=== PATIENT | female | born 1950 | race Caucasian/White ===

== ENCOUNTER → 2016-03-12 | Outpatient (CLI) | payer MEDICAID, MEDICARE | LOC: RAD 14:36 | PROVIDERS: ATTEND Internal Medicine Critical Care Medicine | DX: R07.9 Chest pain, unspecified (principal); R05 Cough; J15.9 Unspecified bacterial pneumonia; J45.909 Unspecified asthma, uncomplicated; R93.8 Abnormal findings on diagnostic imaging of other specified body structures; R91.8 Other nonspecific abnormal finding of lung field; R06.09 Other forms of dyspnea; M54.6 Pain in thoracic spine; G47.33 Obstructive sleep apnea (adult) (pediatric); K21.9 Gastro-esophageal reflux disease without esophagitis; Z80.9 Family history of malignant neoplasm, unspecified; Z87.898 Personal history of other specified conditions | CPT/HCPCS: 71250 ==

== ENCOUNTER → 2016-03-12 | Outpatient (CLI) | payer MEDICARE ==
[2016-03-12 17:23] LABS: HEMATOCRIT 37.3 % (36.0-47.0); HEMOGLOBIN 12.6 g/dL (12.0-15.5); HGB HCT DIFFERENCE 0.5; MEAN CORPUSCULAR HEMOGLOBIN 29.8 pg (27.0-33.4); MEAN CORPUSCULAR HGB CONC 33.9 g/dL (32.0-36.0); MEAN CORPUSCULAR VOLUME 88 fl (80-97); RED BLOOD COUNT 4.24 10^6/uL (3.72-5.28); WHITE BLOOD COUNT 8.8 10^3/uL (4.0-10.5)
[2016-03-12 17:31] LABS: APPEARANCE,URINE CLEAR; BILIRUBIN,URINE NEGATIVE (NEGATIVE); GLUCOSE, URINE NEGATIVE (NEGATIVE); KETONES,URINE NEGATIVE (NEGATIVE); LEUKOCYTE ESTERASE,URINE NEGATIVE (NEGATIVE); NITRITE,URINE NEGATIVE (NEGATIVE); PROTEIN,URINE NEGATIVE (NEGATIVE); URINE SPECIFIC GRAVITY 1.017; UROBILINOGEN,URINE NEGATIVE mg/dL (<2.0)
[2016-03-12 17:38] LABS: ALANINE AMINOTRANSFERASE 52 U/L (9-52); ALKALINE PHOSPHATASE 94 U/L (38-126); AMYLASE 245 U/L (30-110); ANION GAP 16 (5-19); ASPARTATE AMINO TRANSFERASE 82 U/L (14-36); BILIRUBIN,TOTAL 0.3 mg/dL (0.2-1.3); BLOOD UREA NITROGEN 14 mg/dL (7-20); CALCIUM 8.9 mg/dL (8.4-10.2); CARBON DIOXIDE 28 mmol/L (22-30); CHLORIDE 99 mmol/L (98-107); CREATININE RESULT 0.51 mg/dL (0.52-1.25); GLUCOSE 157 mg/dL (75-110); LIPASE 196.8 U/L (23-300); POTASSIUM 3.6 mmol/L (3.6-5.0); SODIUM 143.2 mmol/L (137-145); TOTAL PROTEIN 7.1 g/dL (6.3-8.2)
== END ==
LOC: OD 16:02
PROVIDERS: ATTEND Internal Medicine Critical Care Medicine
DX: J15.9 Unspecified bacterial pneumonia (principal); R10.12 Left upper quadrant pain; M54.6 Pain in thoracic spine
CPT/HCPCS: 36415; 80053; 81001; 82150; 83690; 85027

== ENCOUNTER → 2016-04-20 | Outpatient (CLI) | payer MEDICAID, MEDICARE | LOC: RAD 14:34 | PROVIDERS: ATTEND Physician Assistant | DX: R10.9 Unspecified abdominal pain (principal) | CPT/HCPCS: 76380 ==

== ENCOUNTER 2016-11-27 14:20 | Emergency (ER) | payer MEDICARE, MEDICAID ==
--- NOTE | 2016-11-27 16:00 | ER Document Report ---
ED GI/ - General Mode of Arrival: Wheelchair Information source: Patient TRAVEL OUTSIDE OF THE [place] IN LAST 30 DAYS: No <ENRICO PALENCIA - Last Filed: 11/27/16 19:05> <JOSE F JUAREZ - Last Filed: 11/27/16 20:52> - General Chief Complaint: Urinary Problem Stated Complaint: URINARY PROBLEMS Time Seen by Provider: 11/27/16 15:38 Notes: Patient is a 66-year-old female presented to the emergency department for hematuria, abdominal pain and back pain. Patient says that she is experiencing these symptoms periodically over the past several months. Patient states that her symptoms have been intermittent over the last day or so and then go away before returning again several days later. Patient states that yesterday her symptoms started again and she had hematuria that was very dark in color. Patient states that she urinated in a Styrofoam cup to better examine the appearance of her urine. Patient denies any fever, nausea or vomiting. Patient denies any history of Gout. Patient does have a history of diabetes and diverticulitis but states that she gets very nauseous and her pain is more intense when she has this. Patient had a limited renal/pelvis CT in April that showed a stone in her left kidney. PCP is Dr. Burnett. (ENRICO PALENCIA) - Related Data Allergies/Adverse Reactions: codeine [Codeine] Allergy (Severe, Verified 11/27/16 14:32) stopped breathing acetaminophen [From Darvocet-N 100] Allergy (Intermediate, Verified 11/27/16 14: 32) Hallucinations latex [Latex] Allergy (Intermediate, Verified 11/27/16 14:32) Hives propoxyphene HCl [From Darvon] Allergy (Intermediate, Verified 11/27/16 14:32) Hallucinations aspirin [Aspirin] Adverse Reaction (Mild, Verified 11/27/16 14:32) n/v Past Medical History - General Information source: Patient - Social History Smoking Status: Never Smoker Cigarette use (# per day): No Chew tobacco use (# tins/day): No Smoking Education Provided: No Frequency of alcohol use: None Drug Abuse: None Family History: None, Other - Mother at age 50 due to [place]. Brother with multiple CABG. Patient has suicidal ideation: No Patient has homicidal ideation: No - Past Medical History Cardiac Medical History: Reports: Hx Coronary Artery Disease, Hx Hypercholesterolemia, Hx Hypertension Pulmonary Medical History: Reports: Hx Asthma, Hx Bronchitis, Hx Pneumonia - ABOUT A YEAR AGO, Hx Sleep Apnea Endocrine Medical History: Reports: Hx Diabetes Mellitus Type 2 GI Medical History: Reports: Hx Diverticulitis, Hx Gastroesophageal Reflux Disease Musculoskeltal Medical History: Reports Hx Arthritis - LEFT KNEE Psychiatric Medical History: Reports: Hx Depression, Hx Post Traumatic Stress Disorder Past Surgical History: Reports: Hx Abdominal Surgery - resection, Hx Cardiac Catheterization, Hx Hysterectomy, Hx Orthopedic Surgery - rt knee 05/2012, Hx Tonsillectomy, Hx Tubal Ligation - Immunizations Immunizations up to date: Yes Hx Diphtheria, Pertussis, Tetanus Vaccination: Yes Hx Pneumococcal Vaccination: 07/31/11 <ENRICO PALENCIA - Last Filed: 11/27/16 19:05> Review of Systems - Review of Systems Constitutional: No symptoms reported. denies: Fever EENT: No symptoms reported Cardiovascular: No symptoms reported Respiratory: No symptoms reported Gastrointestinal: See HPI, Abdominal pain. denies: Nausea, Vomiting Genitourinary: See HPI, Flank pain, Hematuria Female Genitourinary: No symptoms reported Musculoskeletal: See HPI, Back pain Skin: No symptoms reported Hematologic/Lymphatic: No symptoms reported Neurological/Psychological: No symptoms reported -: Yes All other systems reviewed and negative <ENRICO PALENCIA - Last Filed: 11/27/16 19:05> Physical Exam - Vital signs Interpretation: Hypertensive <ENRICO PALENCIA - Last Filed: 11/27/16 19:05> <JOSE F JUAREZ - Last Filed: 11/27/16 20:52> - Vital signs Vitals: Temp Pulse Resp BP Pulse Ox 97.5 F 100 18 210/118 H 94 11/27/16 14:24 11/27/16 14:24 11/27/16 14:24 11/27/16 14:24 11/27/16 14:24 - Notes Notes: GENERAL: Alert, interacts well. Mild distress. HEAD: Normocephalic, atraumatic. EYES: Appear normal. Pupils equal, round, and reactive to light. ENT: Moist mucus membranes, tongue midline. NECK: Full range of motion. Supple. Trachea midline. LUNGS: Clear to auscultation bilaterally, no wheezes, rales, or rhonchi. No respiratory distress. Left lateral chest wall tenderness with palpation along the inferior ribs both posteriorly and laterally in the musculature. HEART: Regular rate and rhythm. No murmurs, gallops, or rubs. ABDOMEN: Soft, non-tender. Non-distended. Normal bowel sounds. BACK: Left inferior posterior ribs are tender with palpation. EXTREMITIES: Moves all 4 extremities spontaneously. Normal strength. No edema. NEUROLOGICAL: Alert and oriented x3. Normal speech. No focal neurological deficits. GCS 15. PSYCH: Normal affect, normal mood. SKIN: Warm, dry, normal turgor. No rashes or lesions noted. (ENRICO PALENCIA) Course - Laboratory Result Diagrams: 11/27/16 16:22 11/27/16 16:22 <ENRICO PALENCIA - Last Filed: 11/27/16 19:05> - Laboratory Result Diagrams: 11/27/16 16:22 11/27/16 16:22 - Diagnostic Test Radiology reviewed: Image reviewed, Reports reviewed - CT scan shows a 12 mm stone in the left renal pelvis causing minimal obstruction <JOSE F JUAREZ - Last Filed: 11/27/16 20:52> - Vital Signs Vital signs: Temp Pulse Resp BP Pulse Ox 97.5 F 100 18 210/118 H 94 11/27/16 14:24 11/27/16 14:24 11/27/16 14:24 11/27/16 14:24 11/27/16 14:24 - Laboratory Laboratory results interpreted by me: 11/27/16 11/27/16 11/27/16 16:22 16:22 16:22 Hgb 11.9 L Hct 35.5 L RDW 14.7 H Glucose 187 H AST 65 H Urine Protein 30 H Urine Ketones TRACE H Urine Blood LARGE H Discharge <ENRICO PALENCIA - Last Filed: 11/27/16 19:05> <JOSE F JUAREZ - Last Filed: 11/27/16 20:52> - Discharge Clinical Impression: Kidney stone on left side High blood pressure Qualifiers: Hypertension type: essential hypertension Qualified Code(s): I10 - Essential ( primary) hypertension Condition: Stable Disposition: HOME, SELF-CARE Additional Instructions: Kidney Stone You have a kidney stone. These stones are usually due to increased calcium or uric acid concentrations in your urine. Stones within the kidney itself are not painful. The pain occurs as the stone leaves the kidney to pass down the long tube, called the ureter, leading to the bladder. If the stone is small, it will usually pass by itself. Most patients can pass the stone at home. You will usually receive medications for pain, nausea or vomiting, and sometimes a medication to assist in passing the kidney stone. However, if the pain is very severe or if vomiting prevents you from taking oral pain medications, you may need to return for further treatment. Drink three or four quarts of fluids per day. You will be given pain medication (if needed) and urine strainers. Strain all your urine to see if the stone passes. If your doctor has asked you to bring the stone in for analysis, return with the stone once it has passed. Return if pain or vomiting become severe, if you develop a high fever, if you are unable to pass your urine, or if other unusual symptoms occur. //////////////////////////////////////////////////////////////////////////////// //////////////////////////////////////////////////////////////////////////////// //////////////// Your kidney stone is located in the left renal pelvis. The stone is 12 mm, it most likely will not pass on its own. You should take the pain medication as needed. Drink plenty of fluids. Your blood pressure was quite elevated tonight. Be sure you are not taking your blood pressure medications every day, and monitoring your blood pressure. Call [facility] [place] office on Wednesday morning to make an appointment for this week. RETURN TO THE EMERGENCY ROOM IF ANY NEW OR WORSENING SYMPTOMS. Prescriptions: Oxycodone HCl/Acetaminophen [Percocet 5-325 mg Tablet] 1 - 2 tab PO ASDIR PRN # 20 tablet PRN Reason: Referrals: [facility] [Provider Group] - 11/30/16 (CALL WEDNESDAY FOER AN APPOINTMENT THIS WEEK.) Scribe Attestation: 11/27/16 20:49 I personally performed the services described in the documentation, reviewed and edited the documentation which was dictated to the scribe in my presence, and it accurately records my words and actions. (JOSE F JUAREZ) Scribe Documentation - Scribe Written by Scribe:: Lazara Gerber, 11/27/2016 17:51 acting as scribe for :: Pb <ENRICO PALENCIA - Last Filed: 11/27/16 19:05>
[2016-11-27 16:46] LABS: ABSOLUTE BASOPHILS # (AUTO) 0.1 10^3/uL (0.0-0.2); ABSOLUTE EOSINOPHILS # (AUTO) 0.2 10^3/uL (0.0-0.6); ABSOLUTE LYMPHOCYTES (AUTO) 2.4 10^3/uL (0.5-4.7); ABSOLUTE MONOCYTES (AUTO) 0.5 10^3/uL (0.1-1.4); ABSOLUTE NEUT (AUTO) 5.2 10^3/uL (1.7-8.2); EOSINOPHILS % (AUTO) 2.6 % (0-6); HEMATOCRIT 35.5 % (36.0-47.0); HEMOGLOBIN 11.9 g/dL (12.0-15.5); HGB HCT DIFFERENCE 0.2; LYMPHOCYTES % (AUTO) 28.8 % (13-45); MEAN CORPUSCULAR HGB CONC 33.7 g/dL (32.0-36.0); MEAN CORPUSCULAR VOLUME 89 fl (80-97); RED BLOOD COUNT 3.98 10^6/uL (3.72-5.28); RED CELL DISTRIBUTION WIDTH 14.7 % (11.5-14.0); SEGMENTED NEUTROPHILS % (AUTO) 61.6 % (42-78); WHITE BLOOD COUNT 8.4 10^3/uL (4.0-10.5)
[2016-11-27 16:54] LABS: ALANINE AMINOTRANSFERASE 50 U/L (9-52); ALBUMIN 4.2 g/dL (3.5-5.0); ALKALINE PHOSPHATASE 79 U/L (38-126); ANION GAP 13 (5-19); ASPARTATE AMINO TRANSFERASE 65 U/L (14-36); BILIRUBIN,DIRECT 0.4 mg/dL (0.0-0.4); BILIRUBIN,TOTAL 0.4 mg/dL (0.2-1.3); BLOOD UREA NITROGEN 16 mg/dL (7-20); CALCIUM 9.8 mg/dL (8.4-10.2); CARBON DIOXIDE 25 mmol/L (22-30); CHLORIDE 103 mmol/L (98-107); CREATINE KINASE 103 U/L (30-135); CREATININE RESULT 0.54 mg/dL (0.52-1.25); GLUCOSE 187 mg/dL (75-110); POTASSIUM 3.9 mmol/L (3.6-5.0); SODIUM 141.2 mmol/L (137-145); TOTAL PROTEIN 6.9 g/dL (6.3-8.2); URIC ACID 6.7 mg/dL (2.5-7.5)
[2016-11-27 17:01] LABS: APPEARANCE,URINE SLIGHTLY-CLOUDY; BILIRUBIN,URINE NEGATIVE (NEGATIVE); GLUCOSE, URINE NEGATIVE (NEGATIVE); KETONES,URINE TRACE mg/dL (NEGATIVE); LEUKOCYTE ESTERASE,URINE NEGATIVE (NEGATIVE); NITRITE,URINE NEGATIVE (NEGATIVE); PROTEIN,URINE 30 mg/dL (NEGATIVE); URINE SPECIFIC GRAVITY 1.024; UROBILINOGEN,URINE NEGATIVE mg/dL (<2.0)
--- NOTE | 2016-11-27 20:11 | RADIOLOGY REPORT (SQ) ---
EXAM DESCRIPTION: CT LTD RENAL STONE PROTOCOL ON COMPLETED DATE/TIME: 11/27/2016 8:03 pm REASON FOR STUDY: hematuria, L abd pain COMPARISON: None. TECHNIQUE: CT scan of the abdomen and pelvis performed without intravenous or oral contrast. Images reviewed with lung, soft tissue, and bone windows. Reconstructed coronal and sagittal MPR images revi ewed. All images stored on PACS. All CT scanners at this facility use dose modulation, iterative reconstruction, and/or weight based d osing when appropriate to reduce radiation dose to as low as reasonably achievable (ALARA). [facility]: Dose Right [facility]: CareDose [facility]: Dose Right [facility]: Teradose 4D [facility]: Smart [employer] RADIATION DOSE: Up-to-date CT equipment and radiation dose reduction techniques were employed. CTDIv ol: 19.1 mGy. DLP: 1032 mGy-cm.mGy. LIMITATIONS: None. FINDINGS: LOWER CHEST: No significant findings. No nodules or infiltrates. NON-CONTRASTED LIVER, SPLEEN, ADRENALS: Evaluation limited by lack of IV contrast. No identified sign ificant masses. PANCREAS: No masses. No peripancreatic inflammatory changes. GALLBLADDER: No identified stones by CT criteria. No inflammatory changes to suggest cholecystitis. RIGHT KIDNEY AND URETER: No suspicious masses. Assessment limited by lack of IV contrast. No signif icant calcifications. No hydronephrosis or hydroureter. LEFT KIDNEY AND URETER: No suspicious masses. Assessment limited by lack of IV contrast. The left r enal pelvis is mildly dilated and contains a 12 x 8 mm calculus. No lower urinary tract stones or s ignificant hydronephrosis. AORTA AND RETROPERITONEUM: Scattered atherosclerotic calcifications. No aneurysm. No retroperitoneal masses or adenopathy. BOWEL AND PERITONEAL CAVITY: Postsurgical change sigmoid colon. Scattered colonic diverticula withou t acute inflammation. No obvious masses or inflammatory changes. No free fluid. APPENDIX: Normal. PELVIS, BLADDER, AND ABDOMINAL WALL:Tiny fat containing periumbilical hernia. No abnormal masses. No free fluid. Bladder normal. BONES: Degenerative change without fracture or suspicious osseous lesion. OTHER: No other significant finding. IMPRESSION: MILD PROMINENCE LEFT RENAL PELVIS WHICH CONTAINS A 12 MM CALCULUS. NO LOWER URINARY TRA CT STONES. ADDITIONAL CHRONIC CHANGES ABOVE. COMMENT: Quality ID # [id number]: Final reports with documentation of one or more dose reduction techniques (e.g., Automated exposure control, adjustment of the mA and/or kV according to patient size, use of iterative reconstruction technique) TECHNICAL DOCUMENTATION: JOB ID: [id number] [employer]- All Rights Reserved
[2016-11-27] MEDS ORDERED: HYDROCODONE/ACETAMINOPHEN 5-325 MG 6 TAB/DSPK PO PRN (20:52)
[2016-11-27 21:26] VITALS: BP 180/77
== END 2016-11-27 21:23 | disposition home or self-care (01) ==
LOC: ER 14:20
DX: N20.0 Calculus of kidney (principal); M54.9 Dorsalgia, unspecified; R10.9 Unspecified abdominal pain; E11.9 Type 2 diabetes mellitus without complications; I25.10 Atherosclerotic heart disease of native coronary artery without angina pectoris; I10 Essential (primary) hypertension; J45.909 Unspecified asthma, uncomplicated; Z87.19 Personal history of other diseases of the digestive system; Z88.5 Allergy status to narcotic agent; Z91.040 Latex allergy status
CPT/HCPCS: 99284; 36415; 82550; 84550; 85025; 80053; 81001; 76380; A9270

== ENCOUNTER → 2017-01-27 | Outpatient (CLI) | payer MEDICARE, MEDICAID ==
--- NOTE | 2017-01-27 10:55 | RADIOLOGY REPORT (SQ) ---
EXAM DESCRIPTION: U/S RETROPERITON (RENAL/AORTA) COMPLETED DATE/TIME: 01/27/2017 9:08 am REASON FOR STUDY: CALCULUS OF URETER N20.1 CALCULUS OF URETER COMPARISON: CT 11/27/2016 TECHNIQUE: Dynamic and static grayscale images acquired of the kidneys and bladder and recorded on P ACS. Additional selected color Doppler and spectral images recorded. LIMITATIONS: None. FINDINGS: RIGHT KIDNEY: Normal size, 10.7 cm. Normal echogenicity. No solid or suspicious masses. No hydronephrosis. No calcifications. LEFT KIDNEY: Normal size, 11.2 cm. Normal echogenicity. No solid or suspicious masses. No hydronephr osis. No calcifications. BLADDER: Incompletely filled but morphologically normal. Ureteral jets were not seen. OTHER FINDINGS: No other significant finding. IMPRESSION: NORMAL RENAL AND BLADDER ULTRASOUND. TECHNICAL DOCUMENTATION: JOB ID: [id number] [employer]- All Rights Reserved
== END ==
LOC: RAD 07:58
PROVIDERS: ATTEND Urology
DX: N20.1 Calculus of ureter (principal)
CPT/HCPCS: 76770

== ENCOUNTER 2017-04-17 11:48 | Inpatient (IN) | payer MEDICARE, MEDICAID ==
[2017-04-17] MEDS ORDERED: IPRATROPIUM/ALBUTEROL 0.5-2.5 MG/3 ML AMPUL NEB ONE ×2 (14:30→20:02)
--- NOTE | 2017-04-17 14:32 | ER Document Report ---
ED Medical Screen (RME) - General Chief Complaint: Breathing Difficulty Stated Complaint: DIFFICULTY BREATHING Time Seen by Provider: 04/17/17 14:28 TRAVEL OUTSIDE OF THE [place] IN LAST 30 DAYS: No - HPI Notes: 04/17/17 14:43 67-year-old female with a history of type 2 diabetes, hypertension, hyperlipidemia presents today with shortness of breath has been occurring for the last 2 days. Reports shortness of breath has become progressive. Denies chest pain, reports some nausea, denies vomiting. Patient has been worked up for CHF but has never been given a conclusive answer per patient. Denies any rashes. Denies any fevers or chills. Eating and drinking without issues. Worse with time, nothing makes better - Related Data Allergies/Adverse Reactions: codeine [Codeine] Allergy (Severe, Verified 11/27/16 14:32) stopped breathing acetaminophen [From Darvocet-N 100] Allergy (Intermediate, Verified 11/27/16 14: 32) Hallucinations latex [Latex] Allergy (Intermediate, Verified 11/27/16 14:32) Hives propoxyphene HCl [From Darvon] Allergy (Intermediate, Verified 11/27/16 14:32) Hallucinations aspirin [Aspirin] Adverse Reaction (Mild, Verified 11/27/16 14:32) n/v Past Medical History - General Information source: Patient - Social History Chew tobacco use (# tins/day): No Frequency of alcohol use: None Drug Abuse: None Family history: Reviewed & Not Pertinent - Past Medical History Cardiac Medical History: Reports: Hx Coronary Artery Disease, Hx Hypercholesterolemia, Hx Hypertension Denies: Hx Heart Attack Pulmonary Medical History: Reports: Hx Asthma, Hx Bronchitis, Hx Pneumonia - ABOUT A YEAR AGO, Hx Sleep Apnea Denies: Hx COPD, Hx Tuberculosis Neurological Medical History: Denies: Hx Cerebrovascular Accident, Hx Seizures Endocrine Medical History: Reports: Hx Diabetes Mellitus Type 2 Renal/ Medical History: Denies: Hx Peritoneal Dialysis GI Medical History: Reports: Hx Diverticulitis, Hx Gastroesophageal Reflux Disease Musculoskeltal Medical History: Reports Hx Arthritis - LEFT KNEE Psychiatric Medical History: Reports: Hx Depression, Hx Post Traumatic Stress Disorder Past Surgical History: Reports: Hx Abdominal Surgery - resection, Hx Cardiac Catheterization, Hx Hysterectomy, Hx Orthopedic Surgery - rt knee 05/2012, Hx Tonsillectomy, Hx Tubal Ligation. Denies: Hx Pacemaker - Immunizations Immunizations up to date: Yes Hx Diphtheria, Pertussis, Tetanus Vaccination: Yes Review of Systems - Review of Systems Constitutional: No symptoms reported EENT: No symptoms reported Cardiovascular: No symptoms reported Respiratory: See HPI Gastrointestinal: No symptoms reported Genitourinary: No symptoms reported Female Genitourinary: No symptoms reported Musculoskeletal: No symptoms reported Skin: No symptoms reported Hematologic/Lymphatic: No symptoms reported Neurological/Psychological: No symptoms reported Physical Exam - Vital signs Vitals: Temp Pulse Resp BP Pulse Ox 99.0 F 92 24 H 174/69 H 90 L 04/17/17 11:58 04/17/17 11:58 04/17/17 11:58 04/17/17 11:58 04/17/17 11:58 - Respiratory Respiratory status: Tachypnea Chest status: Nontender, Accessory muscle use Breath sounds: Decreased air movement, Rhonchi, Wheezing Chest palpation: Normal - Cardiovascular Rhythm: Regular Heart sounds: Normal auscultation Murmur: No Normal capillary refill: Yes Course - Vital Signs Vital signs: Temp Pulse Resp BP Pulse Ox 99.0 F 92 24 H 174/69 H 90 L 04/17/17 11:58 04/17/17 11:58 04/17/17 11:58 04/17/17 11:58 04/17/17 11:58
[2017-04-17 15:19] LABS: APPEARANCE,URINE SLIGHTLY-CLOUDY; BILIRUBIN,URINE NEGATIVE (NEGATIVE); COLOR,URINE YELLOW; GLUCOSE, URINE NEGATIVE (NEGATIVE); KETONES,URINE NEGATIVE (NEGATIVE); LEUKOCYTE ESTERASE,URINE NEGATIVE (NEGATIVE); NITRITE,URINE NEGATIVE (NEGATIVE); PROTEIN,URINE NEGATIVE (NEGATIVE); URINE SPECIFIC GRAVITY 1.019; UROBILINOGEN,URINE NEGATIVE mg/dL (<2.0)
--- NOTE | 2017-04-17 15:23 | RADIOLOGY REPORT (SQ) ---
EXAM DESCRIPTION: CHEST SINGLE VIEW COMPLETED DATE/TIME: 04/17/2017 3:15 pm REASON FOR STUDY: sob COMPARISON: 02/18/2016 EXAM PARAMETERS: NUMBER OF VIEWS: One view. TECHNIQUE: Single frontal radiographic view of the chest acquired. RADIATION DOSE: NA LIMITATIONS: None. FINDINGS: LUNGS AND PLEURA: No opacities, masses or pneumothorax. No pleural effusion. MEDIASTINUM AND HILAR STRUCTURES: No masses. Contour normal. HEART AND VASCULAR STRUCTURES: Heart stable in size. Normal vasculature. BONES: No acute findings. HARDWARE: None in the chest. OTHER: No other significant finding. IMPRESSION: STABLE CARDIOMEGALY. NO ACUTE CARDIOPULMONARY PROCESS IDENTIFIED. TECHNICAL DOCUMENTATION: JOB ID: [id number] [employer]- All Rights Reserved
[2017-04-17 15:29] LABS: ABSOLUTE EOSINOPHILS # (AUTO) 0.1 10^3/uL (0.0-0.6); ABSOLUTE LYMPHOCYTES (AUTO) 1.5 10^3/uL (0.5-4.7); ABSOLUTE MONOCYTES (AUTO) 0.5 10^3/uL (0.1-1.4); ABSOLUTE NEUT (AUTO) 2.8 10^3/uL (1.7-8.2); BASOPHILS % (AUTO) 0.6 % (0-2); EOSINOPHILS % (AUTO) 1.3 % (0-6); HEMATOCRIT 32.2 % (36.0-47.0); HEMOGLOBIN 10.7 g/dL (12.0-15.5); LYMPHOCYTES % (AUTO) 30.9 % (13-45); MEAN CORPUSCULAR HEMOGLOBIN 27.6 pg (27.0-33.4); MEAN CORPUSCULAR HGB CONC 33.2 g/dL (32.0-36.0); MEAN CORPUSCULAR VOLUME 83 fl (80-97); MONOCYTES % (AUTO) 9.6 % (3-13); PLATELET COUNT 217 10^3/uL (150-450); RED BLOOD COUNT 3.87 10^6/uL (3.72-5.28); RED CELL DISTRIBUTION WIDTH 16.8 % (11.5-14.0); SEGMENTED NEUTROPHILS % (AUTO) 57.6 % (42-78); TOTAL CELLS COUNTED % (AUTO) 100 %; WHITE BLOOD COUNT 4.9 10^3/uL (4.0-10.5)
[2017-04-17 15:37] LABS: ALANINE AMINOTRANSFERASE 84 U/L (9-52); ALBUMIN 4.3 g/dL (3.5-5.0); ALKALINE PHOSPHATASE 99 U/L (38-126); ANION GAP 14 (5-19); ASPARTATE AMINO TRANSFERASE 144 U/L (14-36); BILIRUBIN,DIRECT 0.1 mg/dL (0.0-0.4); BILIRUBIN,TOTAL 0.2 mg/dL (0.2-1.3); BLOOD UREA NITROGEN 11 mg/dL (7-20); CALCIUM 9.2 mg/dL (8.4-10.2); CARBON DIOXIDE 29 mmol/L (22-30); CHLORIDE 97 mmol/L (98-107); GLUCOSE 147 mg/dL (75-110); POTASSIUM 3.5 mmol/L (3.6-5.0); SODIUM 140.1 mmol/L (137-145); TOTAL PROTEIN 7.2 g/dL (6.3-8.2)
[2017-04-17 15:49] LABS: NT PRO BNP 40 pg/mL (5-900)
[2017-04-17 15:51] LABS: TROPONIN I < 0.012 ng/mL
[2017-04-17] MEDS ORDERED: METHYLPREDNISOLONE INJ 125 MG/2 ML SDV IV ONE (20:01)
--- NOTE | 2017-04-17 20:01 | ER Document Report ---
ED Respiratory Problem - General Mode of Arrival: Ambulatory Information source: Patient TRAVEL OUTSIDE OF THE [place] IN LAST 30 DAYS: No <IQRA TAVAREZ - Last Filed: 04/17/17 20:09> <TJ REESE - Last Filed: 04/17/17 23:53> - General Chief Complaint: Breathing Difficulty Stated Complaint: DIFFICULTY BREATHING Time Seen by Provider: 04/17/17 14:28 Notes: Patient is a 67 year old female that presents to the emergency department today with complaints of wheezing, cough, and consistent fevers for one week. Patient states she is "very close" to having COPD according to her childcare administrator Dr. Deleon. Patient states she has had to use her inhalers a lot over the last week. Patient is not on home oxygen 24 hours a day but she does use c-pap at night. Patient denies vomiting, diarrhea, congestion, or body aches. (IQRA TAVAREZ) - Related Data Allergies/Adverse Reactions: codeine [Codeine] Allergy (Severe, Verified 11/27/16 14:32) stopped breathing acetaminophen [From Darvocet-N 100] Allergy (Intermediate, Verified 11/27/16 14: 32) Hallucinations latex [Latex] Allergy (Intermediate, Verified 11/27/16 14:32) Hives propoxyphene HCl [From Darvon] Allergy (Intermediate, Verified 11/27/16 14:32) Hallucinations aspirin [Aspirin] Adverse Reaction (Mild, Verified 11/27/16 14:32) n/v Past Medical History - General Information source: Patient - Social History Smoking Status: Former Smoker - quit at age 19 Cigarette use (# per day): No Chew tobacco use (# tins/day): No Frequency of alcohol use: None Drug Abuse: None Lives with: Family Family History: Reviewed & Not Pertinent, Other - Mother at age 50 due to [place]. Brother with multiple CABG. 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, Hx Pneumonia - ABOUT A YEAR AGO, Hx Sleep Apnea Endocrine Medical History: Reports: Hx Diabetes Mellitus Type 2 GI Medical History: Reports: Hx Diverticulitis, Hx Gastroesophageal Reflux Disease Musculoskeltal Medical History: Reports Hx Arthritis - LEFT KNEE Psychiatric Medical History: Reports: Hx Depression, Hx Post Traumatic Stress Disorder Past Surgical History: Reports: Hx Abdominal Surgery - resection, Hx Cardiac Catheterization, Hx Hysterectomy, Hx Orthopedic Surgery - rt knee 05/2012, Hx Tonsillectomy, Hx Tubal Ligation - Immunizations Immunizations up to date: Yes Hx Diphtheria, Pertussis, Tetanus Vaccination: Yes Hx Pneumococcal Vaccination: 07/31/11 <IQRA TAVAREZ - Last Filed: 04/17/17 20:09> Review of Systems - Review of Systems Constitutional: See HPI, Fever EENT: denies: Nose congestion Cardiovascular: No symptoms reported Respiratory: See HPI, Cough, Short of breath, Wheezing Gastrointestinal: denies: Diarrhea, Vomiting Genitourinary: No symptoms reported Female Genitourinary: No symptoms reported Musculoskeletal: No symptoms reported Skin: No symptoms reported Hematologic/Lymphatic: No symptoms reported Neurological/Psychological: No symptoms reported -: Yes All other systems reviewed and negative <IQRA TAVAREZ - Last Filed: 04/17/17 20:09> Physical Exam <IQRA TAVAREZ - Last Filed: 04/17/17 20:09> <TJ REESE - Last Filed: 04/17/17 23:53> - Vital signs Vitals: Temp Pulse Resp BP Pulse Ox 99.0 F 92 24 H 174/69 H 90 L 04/17/17 11:58 04/17/17 11:58 04/17/17 11:58 04/17/17 11:58 04/17/17 11:58 - Notes Notes: PHYSICAL EXAM GENERAL: Alert, interacts well. Obese. Appears uncomfortable. Moderate distress secondary to shortness of breath. HEAD: Normocephalic, atraumatic. EYES: Pupils equal, round, and reactive to light. Extraocular movements intact. ENT: Oral mucosa moist, tongue midline. NECK: Full range of motion. Supple. Trachea midline. LUNGS: Tachypneic. Wet cough. Diffuse expiratory wheezing. Appears short of breath. Pursed lip breathing. Moderate respiratory distress. HEART: Tachycardic, regular rhythm. No murmurs, gallops, or rubs. ABDOMEN: Soft, non-tender. Non-distended. Bowel sounds present in all 4 quadrants. No guarding, rigidity, or rebound. EXTREMITIES: Moves all 4 extremities spontaneously. No edema, radial and dorsalis pedis pulses 2/4 bilaterally. No cyanosis. NEUROLOGICAL: Alert and oriented x3. Normal speech. PSYCH: Normal affect, normal mood. SKIN: Warm, dry, normal turgor. No rashes or lesions noted. (IQRA TAVAREZ) Course - Laboratory Result Diagrams: 04/17/17 14:56 04/17/17 14:56 <IQRA TAVAREZ - Last Filed: 04/17/17 20:09> - Laboratory Result Diagrams: 04/17/17 14:56 04/17/17 14:56 <TJ REESE - Last Filed: 04/17/17 23:53> - Re-evaluation Re-evalutation: 04/17/17 23:15 CBC shows anemia with hemoglobin 10.7, no leukocytosis, CMP shows slight low potassium at 3.5 and hyperglycemia, elevated AST and ALT are nonspecific at 144 and 84 respectively, cardiac enzymes negative, urinalysis unremarkable, chest x- ray does not show any acute infiltrate and stable cardiomegaly is noted. Patient has minimal improvement after multiple breathing treatments. BiPAP has been ordered however respiratory has not put it on the patient yet. Discussed the patient with Dr. Villeda for admission, started steroids and Levaquin, suspect the patient does now have COPD, though this may just be an acute viral bronchitis. Given the increased oxygen requirement as she is 90% on room air and drops lower than that with the slightest movement in the bed patient will require hospitalization, it is prudent given antibiotics as well for this acute bronchitis. Dr. Villeda agrees to admit the patient to his service on the [facility] [place]. 04/17/17 23:[address] an ultrasound-guided IV in the left upper extremity. No complications. I attempted ultrasound-guided IV on the right upper extremity but I had flash but it would not thread. 04/17/17 23:52 Hypertension will be followed in hospital. (TJ REESE) - Vital Signs Vital signs: Temp Pulse Resp BP Pulse Ox 98.1 F 92 32 H 172/71 H 96 04/17/17 18:00 04/17/17 11:58 04/17/17 23:35 04/17/17 22:28 04/17/17 23:35 - Laboratory Laboratory results interpreted by me: 04/17/17 04/17/17 14:56 14:56 Hgb 10.7 L Hct 32.2 L RDW 16.8 H Potassium 3.5 L Chloride 97 L Creatinine 0.51 L Glucose 147 H AST 144 H ALT 84 H - EKG Interpretation by Me Additional EKG results interpreted by me: 04/17/17 23:16 EKG shows sinus rhythm at a rate of 88, normal axis, normal intervals, no ST segment elevations or depressions, lateral T-wave inversions in leads I and aVL per my interpretation. (TJ REESE) Critical Care Note - Critical Care Note Total time excluding time spent on procedures (mins): 35 <TJ REESE - Last Filed: 04/17/17 23:53> Discharge <IQRA TAVAREZ - Last Filed: 04/17/17 20:09> - Discharge Admitting Provider: [facility]ist [facility] Unit Admitted: [facility] <TJ REESE - Last Filed: 04/17/17 23:53> - Discharge Clinical Impression: Reactive airway disease with wheezing with acute exacerbation Qualifiers: Asthma severity: severe Asthma persistence: persistent Qualified Code(s): J45.51 - Severe persistent asthma with (acute) exacerbation Hypertension Qualifiers: Hypertension type: essential hypertension Qualified Code(s): I10 - Essential ( primary) hypertension Condition: Fair Disposition: ADMITTED INPATIENT Scribe Attestation: 04/17/17 23:53 I personally performed the services described in the documentation, reviewed and edited the documentation which was dictated to the scribe in my presence, and it accurately records my words and actions. (TJ REESE) Scribe Documentation - Scribe Written by Mattieibe:: Lazara Hermosillo, 04/17/20172021 acting as scribe for :: Addison <IQRA TAVAREZ - Last Filed: 04/17/17 20:09>
[2017-04-17] MEDS ORDERED: LEVOFLOXACIN 750 MG/D5W RTU 750 MG/150 ML RTUPB IV ONE ×2 (20:02→23:00)
[2017-04-17] MEDS ORDERED: ALBUTEROL SULFATE 0.083% NEB 2.5 MG/3 ML AMPUL NEB ONE ×2 (20:02→23:02)
--- NOTE | 2017-04-17 22:15 | EKG REPORT ---
SEVERITY:- ABNORMAL ECG - SINUS RHYTHM ABNORMAL T, CONSIDER ISCHEMIA, LATERAL LEADS : Confirmed by: Bella Sanchez 17-Apr-2017 22:15:22
[2017-04-17] MEDS ORDERED: GUAIFENESIN 600 MG TABLET.SA PO ONE (23:00)
[2017-04-17] MEDS ORDERED: IPRATROPIUM/ALBUTEROL 0.5-2.5 MG/3 ML AMPUL NEB PRN (23:11)
[2017-04-17] MEDS ORDERED: CHLORPHENIRAMINE MALEATE 4 MG TABLET PO ONE (23:11)
[2017-04-17] MEDS ORDERED: ACETAMINOPHEN 325 MG TABLET PO PRN (23:11)
[2017-04-17] MEDS ORDERED: HYDRALAZINE HCL INJ/PF 20 MG/1 ML SDV IV PRN (23:11)
[2017-04-17] MEDS ORDERED: GLUCAGON,HUMAN RECOMB 1 MG INJ IM PRN (23:15)
[2017-04-17] MEDS ORDERED: DEXTROSE 40% GEL 15 GM TUBE PO PRN ×2 (23:15)
[2017-04-17] MEDS ORDERED: DEXTROSE 50%-WATER 25 GM/50 ML DISP.SYRIN IV PRN ×2 (23:15)
[2017-04-17] MEDS ORDERED: POTASSIUM CHLORIDE 10 MEQ TABLET.SA PO ONE (23:17)
[2017-04-17] MEDS ORDERED: FLUTICASONE NASAL SPRAY 50 MCG/SPRY 120 SPRAY/16 GM NASL ONE (23:30)
[2017-04-18] MEDS: IPRATROPIUM/ALBUTEROL 0.5-2.5 MG/3 ML AMPUL NEB SCH ×4 (02:02→20:36)
[2017-04-18] MEDS ORDERED: CHLORPHENIRAMINE MALEATE 4 MG TABLET PO ONE (03:30)
[2017-04-18] MEDS ORDERED: POTASSIUM CHLORIDE 10 MEQ TABLET.SA PO ONE (04:00)
[2017-04-18] MEDS ORDERED: GUAIFENESIN 600 MG TABLET.SA PO ONE (04:00)
[2017-04-18] MEDS ORDERED: FLUTICASONE NASAL SPRAY 50 MCG/SPRY 120 SPRAY/16 GM ONE (05:10)
[2017-04-18] MEDS ORDERED: CHLORPHENIRAMINE MALEATE 4 MG TABLET ONE (05:10)
--- NOTE | 2017-04-18 05:46 | PDOC H&P ---
History of Present Illness Admission Date/PCP: 04/17/17 23:31 SOSA VARELA DO Patient complains of: Shortness of breath and cough History of Present Illness: JOYCELYN HOLLOWAY is a 67 year old female with a past medical history of morbid obesity, obstructive sleep apnea, COPD, depression, dyslipidemia, diabetes and GERD. She presents with several days of exceptional shortness of breath with wheeze not relieved by albuterol. She has been exposed to several family members with upper respiratory symptoms that she denies rhinorrhea or sore throat. She denies recent antibiotics in the emergency room she is tachypneic with global wheeze and poor air movement she is placed on BiPAP after several albuterol and Atrovent treatments failed to reverse her complaints. Patient denies recent change in medications. Past Medical History Cardiac Medical History: Reports: Coronary Artery Disease, Hyperlipidema, Hypertension Denies: Myocardial Infarction Pulmonary Medical History: Reports: Asthma, Bronchitis, Chronic Obstructive Pulmonary Disease (COPD) - "very close to having it", secondary to diesel fume exposure, Pneumonia - ABOUT A YEAR AGO, Sleep Apnea Denies: Tuberculosis Neurological Medical History: Denies: Seizures Endocrine Medical History: Reports: Diabetes Mellitus Type 2 GI Medical History: Reports: Diverticulitis, Gastroesophageal Reflux Disease Musculoskeltal Medical History: Reports: Arthritis - LEFT KNEE Psychiatric Medical History: Reports: Depression, Post Traumatic Stress Disorder Hematology: Denies: Anemia Past Surgical History Past Surgical History: Reports: Cardiac Catheterization, Hysterectomy, Orthopedic Surgery - rt knee 05/2012, Tonsillectomy, Tubal Ligation Denies: Pacemaker Social History Information Source: Patient Lives with: Family Smoking Status: Former Smoker - quit at age 19 Hx Recreational Drug Use: No Hx Prescription Drug Abuse: No - Advance Directive Resuscitation Status: Full Code Family History Family History: CAD, COPD, Other - Mother at age 50 due to [place]. Brother with multiple CABG. Parental Family History Reviewed: Yes Children Family History Reviewed: Yes Sibling(s) Family History Reviewed.: Yes Medication/Allergy Home Medications: Lisinopril/Hydrochlorothiazide [Zestoretic 20-12.5 mg Tablet] 2 each PO DAILY Multivitamin [Multivitamins] 1 each PO DAILY 08/11/11 Tramadol HCl [Ultram 50 mg Tablet] 50 mg PO ASDIR PRN #20 tablet 05/14/12 Amlodipine Besylate 1 tab PO DAILY 05/20/15 Fluticasone/Salmeterol [Advair 250-50 Diskus 14 Dose/Diskus] 1 inh IH Q12 inhaler 05/20/15 Gabapentin 1 cap PO BID 05/20/15 Metformin HCl [Metformin HCl ER] 1 tab PO DAILY 05/20/15 Rosuvastatin Calcium [Crestor] 1 tab PO DAILY 05/20/15 Cholecalciferol (Vitamin D3) [Vitamin D] 1,000 unit PO DAILY 05/31/15 Omeprazole 40 mg PO DAILY 05/31/15 Tiotropium [place] [Spiriva Handihaler 5 Cap/Kit (18 Mcg/Cap)] 1 cap IH DAILY PRN 05/31/15 Ciprofloxacin HCl [Cipro 500 mg Tablet] 500 mg PO BID #20 tablet 10/09/15 Metronidazole [Flagyl 500 mg Tablet] 500 mg PO Q6H #40 tablet 10/09/15 Oxycodone HCl/Acetaminophen [Percocet 5-325 mg Tablet] 1 - 2 tab PO Q4H PRN #15 tablet 10/09/15 Oxycodone HCl/Acetaminophen [Percocet 5-325 mg Tablet] 1 - 2 tab PO ASDIR PRN # 20 tablet 11/27/16 Allergies/Adverse Reactions: codeine [Codeine] Allergy (Severe, Verified 11/27/16 14:32) stopped breathing acetaminophen [From Darvocet-N 100] Allergy (Intermediate, Verified 11/27/16 14: 32) Hallucinations latex [Latex] Allergy (Intermediate, Verified 11/27/16 14:32) Hives propoxyphene HCl [From Darvon] Allergy (Intermediate, Verified 11/27/16 14:32) Hallucinations aspirin [Aspirin] Adverse Reaction (Mild, Verified 11/27/16 14:32) n/v Review of Systems Constitutional: ABSENT: chills, fever(s), headache(s), weight gain, weight loss Eyes: ABSENT: visual disturbances Ears: ABSENT: hearing changes Cardiovascular: ABSENT: chest pain, dyspnea on exertion, edema, orthropnea, palpitations Respiratory: ABSENT: cough, hemoptysis Gastrointestinal: ABSENT: abdominal pain, constipation, diarrhea, hematemesis, hematochezia, nausea, vomiting Genitourinary: ABSENT: dysuria, hematuria Musculoskeletal: ABSENT: joint swelling Integumentary: ABSENT: rash, wounds Neurological: ABSENT: abnormal gait, abnormal speech, confusion, dizziness, focal weakness, syncope Psychiatric: ABSENT: anxiety, depression, homidical ideation, suicidal ideation Endocrine: ABSENT: cold intolerance, heat intolerance, polydipsia, polyuria Hematologic/Lymphatic: ABSENT: easy bleeding, easy bruising Physical Exam Vital Signs: Temp Pulse Resp BP Pulse Ox 98.1 F 92 24 H 163/77 H 92 04/17/17 18:00 04/17/17 11:58 04/18/17 05:01 04/18/17 05:01 04/18/17 05:01 General appearance: PRESENT: cooperative, disheveled, mild distress, morbidly obese Head exam: PRESENT: atraumatic Eye exam: PRESENT: conjunctiva pink, EOMI, PERRLA. ABSENT: scleral icterus Ear exam: PRESENT: normal external ear exam Mouth exam: PRESENT: moist, tongue midline Neck exam: ABSENT: carotid bruit, JVD, lymphadenopathy, thyromegaly Respiratory exam: PRESENT: accessory muscle use, crackles, prolonged expiratory phas, rales, retraction, symmetrical, tachypnea, wheezes. ABSENT: rhonchi, stridor Cardiovascular exam: PRESENT: RRR, tachycardia. ABSENT: diastolic murmur, rubs , systolic murmur Pulses: PRESENT: normal dorsalis pedis pul Vascular exam: PRESENT: normal capillary refill GI/Abdominal exam: PRESENT: normal bowel sounds, soft. ABSENT: distended, guarding, mass, organolmegaly, rebound, tenderness Rectal exam: PRESENT: deferred Extremities exam: PRESENT: full ROM. ABSENT: calf tenderness, clubbing, pedal edema Neurological exam: PRESENT: alert, awake, oriented to person, oriented to place , oriented to time, oriented to situation, CN II-XII grossly intact. ABSENT: motor sensory deficit Psychiatric exam: PRESENT: appropriate affect, normal mood. ABSENT: homicidal ideation, suicidal ideation Skin exam: PRESENT: dry, intact, warm. ABSENT: cyanosis, rash Results Impressions: Chest X-Ray 04/17/17 14:29 IMPRESSION: STABLE CARDIOMEGALY. NO ACUTE CARDIOPULMONARY PROCESS IDENTIFIED. Assessment & Plan - Diagnosis (1) Reactive airway disease with wheezing with acute exacerbation Qualifiers: Asthma severity: severe Asthma persistence: persistent Qualified Code(s) : J45.51 - Severe persistent asthma with (acute) exacerbation Is this a current diagnosis for this admission?: Yes Plan: Secondary to URI, versus uncontrolled GERD. Albuterol, Atrovent, Flonase, proton pump inhibitor and BiPAP (2) Acute bronchitis Is this a current diagnosis for this admission?: Yes Plan: Incentive spirometry, flutter valve and empiric antibiotics given patient's comorbidity will likely result in a rapid decompensation. (3) Obstructive sleep apnea Is this a current diagnosis for this admission?: Yes Plan: BiPAP while asleep. Avoid C-spine flexion while asleep (4) Hypertension Qualifiers: Hypertension type: essential hypertension Qualified Code(s): I10 - Essential (primary) hypertension Is this a current diagnosis for this admission?: Yes Plan: Home regiment with as needed hydralazine. - Time Time Spent: 50 to 70 Minutes - Inpatient Certification Medical Necessity: Need Close Monitoring Due to Risk of Patient Decompensation
[2017-04-18] MEDS ORDERED: HEPARIN SOD (PORCINE) 5,000 UNIT/ML 1 ML SYRINGE SUBCUT SCH (06:00)
[2017-04-18] MEDS ORDERED: LIDOCAINE 1% INJ (10 MG/ML) 10 ML MDV INJ ONE (06:20)
--- NOTE | 2017-04-18 06:25 | PDOC CONSULTATION ---
Consultation Consult Date: 04/18/17 Consult reason:: need of CVL History of Present Illness Admission Date/PCP: 04/17/17 23:31 SOSA VARELA DO History of Present Illness: this is a 67 y/o female, morbidly obese female in need of CVL placement for medications and fluid administration. Past Medical History Cardiac Medical History: Reports: Coronary Artery Disease, Hyperlipidema, Hypertension Denies: Myocardial Infarction Pulmonary Medical History: Reports: Asthma, Bronchitis, Chronic Obstructive Pulmonary Disease (COPD) - "very close to having it", secondary to diesel fume exposure, Pneumonia - ABOUT A YEAR AGO, Sleep Apnea Denies: Tuberculosis Neurological Medical History: Denies: Seizures Endocrine Medical History: Reports: Diabetes Mellitus Type 2 GI Medical History: Reports: Diverticulitis, Gastroesophageal Reflux Disease Musculoskeltal Medical History: Reports: Arthritis - LEFT KNEE Psychiatric Medical History: Reports: Depression, Post Traumatic Stress Disorder Hematology: Denies: Anemia Past Surgical History Past Surgical History: Reports: Cardiac Catheterization, Hysterectomy, Orthopedic Surgery - rt knee 05/2012, Tonsillectomy, Tubal Ligation Denies: Pacemaker Social History Lives with: Family Smoking Status: Former Smoker - quit at age 19 Hx Recreational Drug Use: No Hx Prescription Drug Abuse: No - Advance Directive Resuscitation Status: Full Code Family History Family History: Reviewed & Not Pertinent, CAD, COPD, Other - Mother at age 50 due to [place]. Brother with multiple CABG. Parental Family History Reviewed: Yes Children Family History Reviewed: Yes Sibling(s) Family History Reviewed.: Yes Medication/Allergy Home Medications: Lisinopril/Hydrochlorothiazide [Zestoretic 20-12.5 mg Tablet] 2 each PO DAILY Multivitamin [Multivitamins] 1 each PO DAILY 08/11/11 Tramadol HCl [Ultram 50 mg Tablet] 50 mg PO ASDIR PRN #20 tablet 05/14/12 Amlodipine Besylate 1 tab PO DAILY 05/20/15 Fluticasone/Salmeterol [Advair 250-50 Diskus 14 Dose/Diskus] 1 inh IH Q12 inhaler 05/20/15 Gabapentin 1 cap PO BID 05/20/15 Metformin HCl [Metformin HCl ER] 1 tab PO DAILY 05/20/15 Rosuvastatin Calcium [Crestor] 1 tab PO DAILY 05/20/15 Cholecalciferol (Vitamin D3) [Vitamin D] 1,000 unit PO DAILY 05/31/15 Omeprazole 40 mg PO DAILY 05/31/15 Tiotropium [place] [Spiriva Handihaler 5 Cap/Kit (18 Mcg/Cap)] 1 cap IH DAILY PRN 05/31/15 Ciprofloxacin HCl [Cipro 500 mg Tablet] 500 mg PO BID #20 tablet 10/09/15 Metronidazole [Flagyl 500 mg Tablet] 500 mg PO Q6H #40 tablet 10/09/15 Oxycodone HCl/Acetaminophen [Percocet 5-325 mg Tablet] 1 - 2 tab PO Q4H PRN #15 tablet 10/09/15 Oxycodone HCl/Acetaminophen [Percocet 5-325 mg Tablet] 1 - 2 tab PO ASDIR PRN # 20 tablet 11/27/16 Allergies/Adverse Reactions: codeine [Codeine] Allergy (Severe, Verified 11/27/16 14:32) stopped breathing acetaminophen [From Darvocet-N 100] Allergy (Intermediate, Verified 11/27/16 14: 32) Hallucinations latex [Latex] Allergy (Intermediate, Verified 11/27/16 14:32) Hives propoxyphene HCl [From Darvon] Allergy (Intermediate, Verified 11/27/16 14:32) Hallucinations aspirin [Aspirin] Adverse Reaction (Mild, Verified 11/27/16 14:32) n/v Physical Exam Vital Signs: Temp Pulse Resp BP Pulse Ox 98.1 F 92 24 H 163/77 H 92 04/17/17 18:00 04/17/17 11:58 04/18/17 05:01 04/18/17 05:01 04/18/17 05:01 General appearance: PRESENT: mild distress Eye exam: PRESENT: conjunctival injection Neck exam: PRESENT: full ROM Respiratory exam: PRESENT: decreased breath sounds, rhonchi, wheezes Cardiovascular exam: PRESENT: RRR GI/Abdominal exam: PRESENT: soft Results Impressions: Chest X-Ray 04/17/17 14:29 IMPRESSION: STABLE CARDIOMEGALY. NO ACUTE CARDIOPULMONARY PROCESS IDENTIFIED. Assessment & Plan - Diagnosis (1) Need for intravenous access Is this a current diagnosis for this admission?: Yes - Plan Summary Plan Summary: 67 morbidly obese female in need of Central venous line placement Plan placement of a central venous triple lumen catheter
[2017-04-18] MEDS ORDERED: LIDOCAINE 1% INJ-PF (10 MG/ML) 30 ML SDV ONE (06:35)
--- NOTE | 2017-04-18 06:58 | Operative Report ---
Operative Report DATE OF SURGERY: 04/18/17 PREOPERATIVE DIAGNOSIS: need IV line placement POSTOPERATIVE DIAGNOSIS: same OPERATION: CVL placement right subclavian SURGEON: EVELYN LATIF ANESTHESIA: Local COMPLICATIONS: none INTRAOPERATIVE FINDINGS: as above PROCEDURE: see dictation
[2017-04-18] MEDS: HEPARIN SOD (PORCINE) 5,000 UNIT/ML 1 ML SYRINGE SUBCUT SCH ×3 (07:06→22:53)
--- NOTE | 2017-04-18 08:49 | OPERATIVE REPORT E ---
Operative Report NAME: JOYCELYN HOLLOWAY : 1950 AGE: 67Y DATE OF SURGERY: 04/18/2017 ROOM: ED13 PREOPERATIVE DIAGNOSIS: NEED OF CENTRAL VENOUS LINE. POSTOPERATIVE DIAGNOSIS: NEED OF CENTRAL VENOUS LINE. OPERATION: Placement of a right subclavian central venous line. SURGEON: EVELYN LATIF M.D. INVENTORY PLANNER: None. BLEEDING: None. COMPLICATIONS: None. ANESTHESIA: Local (1% lidocaine without epinephrine). INDICATION AND FINDINGS: A 67-year-old female with severe COPD and difficulty breathing due to COPD for administration of medication and drugs. Procedure, risk, benefits were explained to the patient, she understood all the above and decided to proceed. PROCEDURE: Procedure was done at bedside in the Emergency Room. The patient was placed in the supine Trendelenburg position with her chest and neck prepped and draped in the usual sterile fashion. The skin below the midportion of the right clavicle was infiltrated with lidocaine, and a 16-gauge needle was used to easily cannulate the subclavian vein. A guidewire was then inserted through the needle into the superior vena cava. The needle was then removed. Insertion point of guidewire was enlarged with blade and a tissue dilator which was then removed. The central venous catheter was inserted over the guidewire in the subclavian vein and superior vena cava. The guidewire was removed. At this point, each port of the triple-lumen catheter was aspirated and flushed with normal saline without difficulty. The the catheter was then sutured to the skin with silk ties. A sterile dressing was then applied. The patient tolerated the procedure well. A chest x-ray was then obtained to confirm good position of the line. DICTATING PHYSICIAN: EVELYN LATIF M.D. [id number] PHY#: [id number] ID: [id number] JOB#: [id number] ACCT: [id number] cc:EVELYN LATIF M.D. > MTDD
--- NOTE | 2017-04-18 09:43 | PDOC PROGRESS REPORT ---
Subjective Progress Note for:: 04/18/17 Subjective:: Patient is on BiPAP support She is speaking full sentences She does not appear in severe respiratory distress when evaluated She has minimal wheezing She is alert and awake patient was admitted with the diagnosis of acute asthmatic bronchitis hypoxemia , and was placed on BiPAP support Reason For Visit: MORBID OBESITY COPD EXACERBATION PNEUMONIA Physical Exam Vital Signs: Temp Pulse Resp BP Pulse Ox 98.1 F 92 24 H 163/77 H 92 04/17/17 18:00 04/17/17 11:58 04/18/17 05:01 04/18/17 05:01 04/18/17 05:01 General appearance: PRESENT: cooperative, disheveled, mild distress, morbidly obese Head exam: PRESENT: atraumatic Eye exam: PRESENT: conjunctiva pink, EOMI, PERRLA. ABSENT: scleral icterus Ear exam: PRESENT: normal external ear exam Mouth exam: PRESENT: moist, tongue midline Neck exam: ABSENT: carotid bruit, JVD, lymphadenopathy, thyromegaly Respiratory exam: PRESENT: Decreased breath sounds bilaterally, no rales no rhonchi Cardiovascular exam: PRESENT: RRR, tachycardia. ABSENT: diastolic murmur, rubs , systolic murmur Pulses: PRESENT: normal dorsalis pedis pul Vascular exam: PRESENT: normal capillary refill GI/Abdominal exam: PRESENT: normal bowel sounds, soft. ABSENT: distended, guarding, mass, organolmegaly, rebound, tenderness Extremities exam: PRESENT: full ROM. ABSENT: calf tenderness, clubbing, pedal edema Neurological exam: PRESENT: alert, awake, oriented to person, oriented to place , oriented to time, oriented to situation, CN II-XII grossly intact. ABSENT: motor sensory deficit Psychiatric exam: PRESENT: appropriate affect, normal mood. ABSENT: homicidal ideation, suicidal ideation Skin exam: PRESENT: dry, intact, warm. ABSENT: cyanosis, rash Results Impressions: Chest X-Ray 04/17/17 14:29 IMPRESSION: STABLE CARDIOMEGALY. NO ACUTE CARDIOPULMONARY PROCESS IDENTIFIED. Assessment & Plan - Time Time Spent with patient: (1) Reactive airway disease with wheezing with acute exacerbation Qualifiers: Asthma severity: severe Asthma persistence: persistent Qualified Code(s) : J45.51 - Severe persistent asthma with (acute) exacerbation Is this a current diagnosis for this admission?: Yes Plan: Continue nebs, continue steroids; continue Levaquin Noted that chest x-ray does not show any infiltrate (2) Acute bronchitis Is this a current diagnosis for this admission?: Yes Plan: Incentive spirometry, flutter valve and empiric antibiotics given patient's comorbidity will likely result in a rapid decompensation. (3) Obstructive sleep apnea Is this a current diagnosis for this admission?: Yes Plan: BiPAP as needed Patient does use a CPAP at home (4) Hypertension Qualifiers: Hypertension type: essential hypertension Qualified Code(s): I10 - Essential (primary) hypertension Is this a current diagnosis for this admission?: Yes Plan: Continue home meds to reevaluate Patient was admitted with acute hypoxemia O2 sat was 90% on room air in the ED Hypoxemia likely secondary to acute bronchitis and bronchospasm, obesity hypoventilation syndrome, obstructive sleep apnea There is no evidence of pneumonia There is no evidence of a recent Viral syndrome We will order a lung scan ventilation perfusion to exclude pulmonary embolism Patient has an extremely poor IV access and and subclavian line was placed ABGs were ordered Time Spent with patient: 25-34 minutes
--- NOTE | 2017-04-18 09:51 | RADIOLOGY REPORT (SQ) ---
EXAM DESCRIPTION: CHEST SINGLE VIEW COMPLETED DATE/TIME: 04/18/2017 9:37 am REASON FOR STUDY: Central line placement COMPARISON: 04/17/2017. EXAM PARAMETERS: NUMBER OF VIEWS: One view. TECHNIQUE: Single frontal radiographic view of the chest acquired. RADIATION DOSE: NA LIMITATIONS: None. FINDINGS: LUNGS AND PLEURA: No infiltrate or effusion. No pneumothorax MEDIASTINUM AND HILAR STRUCTURES: No masses. Contour normal. HEART AND VASCULAR STRUCTURES: Cardiomegaly. BONES: No acute findings. HARDWARE: None in the chest. OTHER: Interval placement of right central venous line with tip at caval atrial junction. Chest lead s in place. IMPRESSION: Cardiomegaly. Right central venous line at cavoatrial junction. TECHNICAL DOCUMENTATION: JOB ID: [id number] [employer]- All Rights Reserved
[2017-04-18] MEDS ORDERED: [UNRECOGNIZED DRUG - OTHER] PO SCH (10:00)
[2017-04-18] MEDS ORDERED: HYDROCHLOROTHIAZIDE PO SCH (10:00)
[2017-04-18] MEDS ORDERED: LISINOPRIL PO SCH (10:00)
[2017-04-18] MEDS: LISINOPRIL 10 MG TABLET PO SCH (10:32)
[2017-04-18] MEDS: AMLODIPINE BESYLATE 5 MG TABLET PO SCH (10:35)
[2017-04-18] MEDS: CHOLECALCIFEROL (D3) 1,000 UNIT TABLET PO SCH (10:36)
[2017-04-18] MEDS: HYDROCHLOROTHIAZIDE 12.5 MG CAPSULE PO SCH (10:36)
[2017-04-18] MEDS: GABAPENTIN 300 MG CAPSULE PO SCH ×2 (10:37→18:40)
[2017-04-18] MEDS: FLUTICASONE NASAL SPRAY 50 MCG/SPRY 120 SPRAY/16 GM NASL SCH ×2 (10:38→22:53)
[2017-04-18] MEDS: GUAIFENESIN 600 MG TABLET.SA PO SCH ×2 (10:40→22:53)
[2017-04-18] MEDS: MAGNESIUM SULFATE/D5W 1 GM/100 ML RTUPB IV SCH ×2 (10:40→11:55)
[2017-04-18 10:46] LABS: ARTERIAL BLOOD BASE EXCESS 3.7 mmol/L; ARTERIAL BLOOD H2CO3 1.23 mmol/L (1.05-1.35); ARTERIAL BLOOD HCO3 27.9 mmol/L (20-26); ARTERIAL BLOOD O2 SATURATION 95.2 % (94-98); ARTERIAL BLOOD PH 7.45 (7.35-7.45); ARTERIAL BLOOD PO2 72.5 mmHg (80-100); ARTERIAL BLOOD TOTAL CO2 29.2 mmol/L (21-25)
[2017-04-18 10:47] LABS: ARTERIAL BLOOD FIO2 28%
[2017-04-18 12:06] LABS: ABSOLUTE LYMPHOCYTES (AUTO) 0.9 10^3/uL (0.5-4.7); ABSOLUTE MONOCYTES (AUTO) 0.6 10^3/uL (0.1-1.4); ABSOLUTE NEUT (AUTO) 4.4 10^3/uL (1.7-8.2); BASOPHILS % (AUTO) 0.2 % (0-2); HEMATOCRIT 32.3 % (36.0-47.0); HEMOGLOBIN 10.5 g/dL (12.0-15.5); LYMPHOCYTES % (AUTO) 15.8 % (13-45); MEAN CORPUSCULAR HEMOGLOBIN 27.4 pg (27.0-33.4); MEAN CORPUSCULAR HGB CONC 32.7 g/dL (32.0-36.0); MEAN CORPUSCULAR VOLUME 84 fl (80-97); MONOCYTES % (AUTO) 9.6 % (3-13); PLATELET COUNT 240 10^3/uL (150-450); RED BLOOD COUNT 3.85 10^6/uL (3.72-5.28); RED CELL DISTRIBUTION WIDTH 16.6 % (11.5-14.0); SEGMENTED NEUTROPHILS % (AUTO) 74.4 % (42-78); TOTAL CELLS COUNTED % (AUTO) 100 %; WHITE BLOOD COUNT 5.9 10^3/uL (4.0-10.5)
[2017-04-18 12:30] LABS: ANION GAP 15 (5-19); BLOOD UREA NITROGEN 16 mg/dL (7-20); CALCIUM 10.5 mg/dL (8.4-10.2); CARBON DIOXIDE 26 mmol/L (22-30); CHLORIDE 99 mmol/L (98-107); GLUCOSE 268 mg/dL (75-110); POTASSIUM 3.9 mmol/L (3.6-5.0); SODIUM 140.1 mmol/L (137-145)
--- NOTE | 2017-04-18 14:17 | RADIOLOGY REPORT (SQ) ---
EXAM DESCRIPTION: NM LUNG VENT/PERF SCAN COMPLETED DATE/TIME: 04/18/2017 2:08 pm REASON FOR STUDY: hypoxemia COMPARISON: None. RADIONUCLIDE AND DOSE: 5.3 millicuries TC-99m MAA Intravenous 32.3 millicuries TC-99m DTPA Inhaled aerosol TECHNIQUE: Eight views of the lungs acquired post ventilation of DTPA aerosol. Eight matching views of the lungs acquired following injection of MAA. LIMITATIONS: None. FINDINGS: VENTILATION: Symmetric and homogeneous distribution of DTPA aerosol during ventilatory pha se. No significant areas of photopenia. PERFUSION: Perfusion images with normal homogenous activity and no wedge-shaped or segmental defects. No ventilation-perfusion mismatches. OTHER: No other significant finding. IMPRESSION: Low probability for pulmonary embolus. TECHNICAL DOCUMENTATION: JOB ID: [id number] [employer]- All Rights Reserved
[2017-04-18] MEDS: METHYLPREDNISOLONE INJ 125 MG/2 ML SDV IV SCH ×2 (15:03→22:53)
[2017-04-18] MEDS: INSULIN LISPRO 100 UNIT/ML 3 ML VIAL SUBCUT PRN ×2 (16:19→22:53)
[2017-04-18] MEDS: ATORVASTATIN CALCIUM 20 MG TABLET PO SCH (22:53)
[2017-04-18] MEDS: LEVOFLOXACIN 750 MG/D5W RTU 750 MG/150 ML RTUPB IV SCH (22:54)
[2017-04-19] MEDS: IPRATROPIUM/ALBUTEROL 0.5-2.5 MG/3 ML AMPUL NEB SCH ×4 (02:20→20:14)
[2017-04-19] MEDS: HEPARIN SOD (PORCINE) 5,000 UNIT/ML 1 ML SYRINGE SUBCUT SCH ×3 (05:49→21:26)
[2017-04-19] MEDS: METHYLPREDNISOLONE INJ 125 MG/2 ML SDV IV SCH ×3 (05:49→21:28)
[2017-04-19] MEDS: INSULIN LISPRO 100 UNIT/ML 3 ML VIAL SUBCUT PRN ×4 (08:13→22:12)
[2017-04-19] MEDS: AMLODIPINE BESYLATE 5 MG TABLET PO SCH (10:34)
[2017-04-19] MEDS: LISINOPRIL 10 MG TABLET PO SCH (10:35)
[2017-04-19] MEDS: CHOLECALCIFEROL (D3) 1,000 UNIT TABLET PO SCH (10:35)
[2017-04-19] MEDS: GUAIFENESIN 600 MG TABLET.SA PO SCH ×2 (10:35→21:28)
[2017-04-19] MEDS: FLUTICASONE NASAL SPRAY 50 MCG/SPRY 120 SPRAY/16 GM NASL SCH ×2 (10:36→21:31)
[2017-04-19] MEDS: HYDROCHLOROTHIAZIDE 12.5 MG CAPSULE PO SCH (10:36)
[2017-04-19] MEDS: GABAPENTIN 300 MG CAPSULE PO SCH ×2 (10:36→18:12)
[2017-04-19] MEDS: LEVOFLOXACIN 750 MG/D5W RTU 750 MG/150 ML RTUPB IV SCH (21:28)
[2017-04-19] MEDS: ATORVASTATIN CALCIUM 20 MG TABLET PO SCH (21:28)
[2017-04-19] MEDS: DULOXETINE HCL 30 MG CAPSULE.DR PO SCH (21:28)
[2017-04-20] MEDS: IPRATROPIUM/ALBUTEROL 0.5-2.5 MG/3 ML AMPUL NEB SCH ×4 (02:19→20:27)
[2017-04-20] MEDS: METHYLPREDNISOLONE INJ 125 MG/2 ML SDV IV SCH ×3 (05:04→21:29)
[2017-04-20] MEDS: HEPARIN SOD (PORCINE) 5,000 UNIT/ML 1 ML SYRINGE SUBCUT SCH ×3 (05:04→21:28)
[2017-04-20] MEDS: INSULIN LISPRO 100 UNIT/ML 3 ML VIAL SUBCUT PRN ×4 (08:32→22:05)
[2017-04-20] MEDS: FLUTICASONE NASAL SPRAY 50 MCG/SPRY 120 SPRAY/16 GM NASL SCH ×2 (09:25→21:30)
[2017-04-20] MEDS: HYDROCHLOROTHIAZIDE 12.5 MG CAPSULE PO SCH (09:25)
[2017-04-20] MEDS: GUAIFENESIN 600 MG TABLET.SA PO SCH ×2 (09:25→21:30)
[2017-04-20] MEDS: LISINOPRIL 10 MG TABLET PO SCH (09:26)
[2017-04-20] MEDS: GABAPENTIN 300 MG CAPSULE PO SCH ×2 (09:27→17:41)
[2017-04-20] MEDS: DULOXETINE HCL 30 MG CAPSULE.DR PO SCH ×2 (09:27→21:29)
[2017-04-20] MEDS: AMLODIPINE BESYLATE 5 MG TABLET PO SCH (09:27)
[2017-04-20] MEDS: CHOLECALCIFEROL (D3) 1,000 UNIT TABLET PO SCH (09:27)
[2017-04-20] MEDS ORDERED: MAGNESIUM OXIDE 400 MG TABLET PO ONE (09:30)
[2017-04-20] MEDS: MAGNESIUM SULFATE/D5W 1 GM/100 ML RTUPB IV SCH ×2 (09:56→11:41)
[2017-04-20] MEDS ORDERED: LEVOTHYROXINE SODIUM 0.1 MG TABLET PO SCH (10:00)
[2017-04-20] MEDS ORDERED: LEVOTHYROXINE SODIUM 0.1 MG TABLET PO ONE (10:15)
[2017-04-20] MEDS: LEVOFLOXACIN 750 MG TABLET PO SCH (21:29)
[2017-04-20] MEDS: ATORVASTATIN CALCIUM 20 MG TABLET PO SCH (21:30)
[2017-04-21] MEDS: IPRATROPIUM/ALBUTEROL 0.5-2.5 MG/3 ML AMPUL NEB SCH ×4 (02:10→20:04)
[2017-04-21 04:12] LABS: ANION GAP 14 (5-19); BLOOD UREA NITROGEN 31 mg/dL (7-20); CARBON DIOXIDE 28 mmol/L (22-30); CHLORIDE 97 mmol/L (98-107); GLUCOSE 257 mg/dL (75-110); POTASSIUM 4.7 mmol/L (3.6-5.0); SODIUM 138.8 mmol/L (137-145)
[2017-04-21] MEDS: HEPARIN SOD (PORCINE) 5,000 UNIT/ML 1 ML SYRINGE SUBCUT SCH ×3 (05:06→21:21)
[2017-04-21] MEDS: NORMAL SALINE INJ/PF 0.9% 10 ML SDV IV PRN ×2 (05:07→21:21)
[2017-04-21] MEDS: METHYLPREDNISOLONE INJ 125 MG/2 ML SDV IV SCH ×2 (05:07→13:06)
[2017-04-21] MEDS: LEVOTHYROXINE SODIUM 0.1 MG TABLET PO SCH (05:08)
[2017-04-21] MEDS: INSULIN LISPRO 100 UNIT/ML 3 ML VIAL SUBCUT PRN ×4 (07:56→21:58)
--- NOTE | 2017-04-21 09:43 | PDOC PROGRESS REPORT ---
Subjective Progress Note for:: 04/20/17 Subjective:: Patient admitted for COPD exacerbation. Patient is still feeling short of breath with minimal activity. Patient requesting to use her BiPAP most of the time. Patient is able to speak in complete sentences but still feels very short of breath at times. Reason For Visit: MORBID OBESITY COPD EXACERBATION PNEUMONIA Physical Exam Vital Signs: Temp Pulse Resp BP Pulse Ox 98.6 F 71 22 H 143/70 H 96 04/20/17 16:23 04/20/17 16:23 04/20/17 16:23 04/20/17 16:23 04/20/17 16:23 Intake & Output 04/19/17 04/20/17 04/21/17 06:59 06:59 06:59 Intake Total 860 2100 422 Balance 860 2100 422 Weight 112.2 kg 111.2 kg General appearance: PRESENT: no acute distress, obese Head exam: PRESENT: atraumatic Eye exam: PRESENT: EOMI. ABSENT: scleral icterus Ear exam: PRESENT: normal external ear exam Mouth exam: PRESENT: moist Neck exam: ABSENT: carotid bruit, JVD, lymphadenopathy, thyromegaly Respiratory exam: PRESENT: clear to auscultation vicky, decreased breath sounds. ABSENT: rales, rhonchi, wheezes Cardiovascular exam: PRESENT: RRR. ABSENT: diastolic murmur, rubs, systolic murmur Pulses: PRESENT: normal dorsalis pedis pul Vascular exam: PRESENT: normal capillary refill GI/Abdominal exam: PRESENT: normal bowel sounds, soft. ABSENT: distended, guarding, mass, organolmegaly, rebound, tenderness Rectal exam: PRESENT: deferred Extremities exam: PRESENT: full ROM. ABSENT: calf tenderness, clubbing, pedal edema Neurological exam: PRESENT: alert, awake, oriented to person, oriented to place , oriented to time, oriented to situation, CN II-XII grossly intact. ABSENT: motor sensory deficit Psychiatric exam: PRESENT: appropriate affect, normal mood. ABSENT: homicidal ideation, suicidal ideation Skin exam: PRESENT: dry, intact, warm. ABSENT: cyanosis, rash Results Laboratory Results: 04/18/17 11:35 04/18/17 11:35 Impressions: Chest X-Ray 04/18/17 00:00 IMPRESSION: Cardiomegaly. Right central venous line at cavoatrial junction. Lung Scan-VQ NM 04/18/17 09:41 IMPRESSION: Low probability for pulmonary embolus. Assessment & Plan - Diagnosis (1) Reactive airway disease with wheezing with acute exacerbation Qualifiers: Asthma severity: severe Asthma persistence: persistent Qualified Code(s) : J45.51 - Severe persistent asthma with (acute) exacerbation Is this a current diagnosis for this admission?: Yes Plan: Patient exacerbation may be due to acute bronchitis secondary to a viral syndrome as she has had exposure to someone with the flu. Patient is currently on steroids, nebs, antibiotics and she was also started on Tamiflu. Unfortunately patient is still very short of breath on minimal activity that is not her baseline. (2) Acute bronchitis Is this a current diagnosis for this admission?: Yes Plan: Patient with acute bronchitis possibly viral in nature. She states that she has sick contacts at home. Patient states that her grandson was recently diagnosed with flu. Patient is currently on Solu-Medrol, Levaquin, DuoNeb's and budesonide. Patient may also need to be started on Tamiflu. (3) Obstructive sleep apnea Is this a current diagnosis for this admission?: Yes Plan: Patient on BiPAP. Patient is insisting on using this all the time. If patient does not have a BiPAP machine at home she may require one. Patient on patient size is highly possible that she may have obstructive sleep apnea. (4) Hypertension Qualifiers: Hypertension type: essential hypertension Qualified Code(s): I10 - Essential (primary) hypertension Is this a current diagnosis for this admission?: Yes Plan: The patient's home medications. Patient blood pressures appear stable. (5) Hypomagnesemia Is this a current diagnosis for this admission?: Yes Plan: Patient magnesium is 1.4. Will give patient 2 g of IV magnesium and 800 mg of p.o. magnesium. Will follow-up magnesium level in the morning. (6) Obesity Qualifiers: Body mass index: BMI 40.0-44.9 Is this a current diagnosis for this admission?: Yes Plan: Patient will be counseled on diet and physical activity. Patient patient will be advised that her weight could be contributing to her breathing difficulty. - Time Time Spent with patient: 15-24 minutes Anticipated discharge: Home Within: within 72 hours - Inpatient Certification Medical Necessity: Significant Comorbidiites Make Outpatient Treatment Too Risky , Need Close Monitoring Due to Risk of Patient Decompensation, Need for Nebulizer Therapy and Monitoring of Response
[2017-04-21] MEDS: CHOLECALCIFEROL (D3) 1,000 UNIT TABLET PO SCH (10:54)
[2017-04-21] MEDS: GABAPENTIN 300 MG CAPSULE PO SCH ×2 (10:55→17:15)
[2017-04-21] MEDS: LISINOPRIL 10 MG TABLET PO SCH (10:55)
[2017-04-21] MEDS: GUAIFENESIN 600 MG TABLET.SA PO SCH ×2 (10:56→21:20)
[2017-04-21] MEDS: DULOXETINE HCL 30 MG CAPSULE.DR PO SCH ×2 (10:56→21:20)
[2017-04-21] MEDS: AMLODIPINE BESYLATE 5 MG TABLET PO SCH (10:56)
[2017-04-21] MEDS: FLUTICASONE NASAL SPRAY 50 MCG/SPRY 120 SPRAY/16 GM NASL SCH ×2 (10:57→21:19)
[2017-04-21] MEDS: HYDROCHLOROTHIAZIDE 12.5 MG CAPSULE PO SCH (10:57)
[2017-04-21] MEDS: OSELTAMIVIR PHOSPHATE 75 MG CAPSULE PO SCH ×2 (13:05→17:15)
[2017-04-21] MEDS: MAGNESIUM SULFATE/D5W 1 GM/100 ML RTUPB IV SCH ×2 (13:07→14:22)
[2017-04-21] MEDS ORDERED: METHYLPREDNISOLONE INJ 125 MG/2 ML SDV IV SCH (15:03)
--- NOTE | 2017-04-21 15:06 | PDOC PROGRESS REPORT ---
Subjective Progress Note for:: 04/21/17 Subjective:: Patient admitted for airway disease with exacerbation. Patient states that she is able to go a little bit longer at the BiPAP. Patient does use CPAP at home. Patient is gradually improving. Reason For Visit: MORBID OBESITY COPD EXACERBATION PNEUMONIA Physical Exam Vital Signs: Temp Pulse Resp BP Pulse Ox 98.5 F 64 18 132/52 H 92 04/21/17 11:04 04/21/17 14:00 04/21/17 13:58 04/21/17 11:04 04/21/17 13:58 Intake & Output 04/20/17 04/21/17 04/22/17 06:59 06:59 06:59 Intake Total 2100 1278 237 Balance 2100 1278 237 Weight 111.2 kg 110.4 kg 110.4 kg General appearance: PRESENT: no acute distress, obese Head exam: PRESENT: normocephalic Eye exam: PRESENT: EOMI. ABSENT: scleral icterus Ear exam: PRESENT: normal external ear exam Mouth exam: PRESENT: moist Neck exam: ABSENT: carotid bruit, JVD, lymphadenopathy, thyromegaly Respiratory exam: PRESENT: clear to auscultation vicky. ABSENT: rales, rhonchi, wheezes Cardiovascular exam: PRESENT: RRR. ABSENT: diastolic murmur, rubs, systolic murmur Pulses: PRESENT: normal dorsalis pedis pul Vascular exam: PRESENT: normal capillary refill GI/Abdominal exam: PRESENT: normal bowel sounds, soft. ABSENT: distended, guarding, mass, organolmegaly, rebound, tenderness Rectal exam: PRESENT: deferred Extremities exam: PRESENT: full ROM. ABSENT: calf tenderness, clubbing, pedal edema Neurological exam: PRESENT: alert, awake, oriented to person, oriented to place , oriented to time, oriented to situation, CN II-XII grossly intact. ABSENT: motor sensory deficit Psychiatric exam: PRESENT: appropriate affect, normal mood. ABSENT: homicidal ideation, suicidal ideation Skin exam: PRESENT: dry, intact, warm. ABSENT: cyanosis, rash Results Laboratory Results: 04/18/17 11:35 04/21/17 03:30 04/21/17 03:30 Sodium 138.8 Potassium 4.7 Chloride 97 L Carbon Dioxide 28 Anion Gap 14 BUN 31 H Creatinine 0.70 Est GFR ( Amer) > 60 Est GFR (Non-Af Amer) > 60 Glucose 257 H Calcium 10.0 Magnesium 1.6 Impressions: Chest X-Ray 04/18/17 00:00 IMPRESSION: Cardiomegaly. Right central venous line at cavoatrial junction. Lung Scan-VQ NM 04/18/17 09:41 IMPRESSION: Low probability for pulmonary embolus. Assessment & Plan - Diagnosis (1) Reactive airway disease with wheezing with acute exacerbation Qualifiers: Asthma severity: severe Asthma persistence: persistent Qualified Code(s) : J45.51 - Severe persistent asthma with (acute) exacerbation Is this a current diagnosis for this admission?: Yes Plan: Patient exacerbation may be due to acute bronchitis secondary to a viral syndrome as she has had exposure to someone with the flu. Patient is currently on steroids, nebs, antibiotics and Tamiflu. She is still short of breath with activity although with improvement. Still not at her baseline. (2) Acute bronchitis Is this a current diagnosis for this admission?: Yes Plan: Patient with acute bronchitis possibly viral in nature. She states that she has sick contacts at home. Patient states that her grandson was recently diagnosed with flu. Patient is currently on Solu-Medrol, Levaquin, DuoNeb's and budesonide. Continue weaning steroids. (3) Obstructive sleep apnea Is this a current diagnosis for this admission?: Yes Plan: Patient on BiPAP. Patient is going for longer durations without using the BiPAP. Patient does use CPAP at home. (4) Hypertension Qualifiers: Hypertension type: essential hypertension Qualified Code(s): I10 - Essential (primary) hypertension Is this a current diagnosis for this admission?: Yes Plan: The patient's home medications. Patient blood pressures appear stable. (5) Hypomagnesemia Is this a current diagnosis for this admission?: Yes Plan: Magnesium 1.6. She will be given 2 g of IV magnesium. (6) Obesity Qualifiers: Body mass index: BMI 40.0-44.9 Is this a current diagnosis for this admission?: Yes Plan: Patient will be counseled on diet and physical activity. Patient patient will be advised that her weight could be contributing to her breathing difficulty. - Time Time Spent with patient: Less than 15 minutes Anticipated discharge: Home Within: within 72 hours - Inpatient Certification Medical Necessity: Need for Nebulizer Therapy and Monitoring of Response - Patient still short of breath with minimal activity although improving. Patient still is not back to her baseline.
[2017-04-21] MEDS: BUDESONIDE NEB 0.5 MG/2 ML AMPUL NEB SCH (20:04)
[2017-04-21] MEDS: LEVOFLOXACIN 750 MG TABLET PO SCH (21:20)
[2017-04-21] MEDS: METHYLPREDNISOLONE INJ 40 MG/1 ML SDV IV SCH (21:20)
[2017-04-21] MEDS: ATORVASTATIN CALCIUM 20 MG TABLET PO SCH (21:21)
[2017-04-22] MEDS: IPRATROPIUM/ALBUTEROL 0.5-2.5 MG/3 ML AMPUL NEB SCH ×4 (01:54→20:32)
[2017-04-22] MEDS: NORMAL SALINE INJ/PF 0.9% 10 ML SDV IV PRN ×2 (05:04→21:30)
[2017-04-22] MEDS: METHYLPREDNISOLONE INJ 40 MG/1 ML SDV IV SCH ×2 (05:05→13:58)
[2017-04-22] MEDS: HEPARIN SOD (PORCINE) 5,000 UNIT/ML 1 ML SYRINGE SUBCUT SCH ×3 (05:05→21:27)
[2017-04-22] MEDS: LEVOTHYROXINE SODIUM 0.1 MG TABLET PO SCH (05:06)
[2017-04-22 06:46] LABS: ANION GAP 13 (5-19)
[2017-04-22 06:47] LABS: BLOOD UREA NITROGEN 27 mg/dL (7-20); CALCIUM 9.5 mg/dL (8.4-10.2); CARBON DIOXIDE 27 mmol/L (22-30); CHLORIDE 96 mmol/L (98-107); GLUCOSE 240 mg/dL (75-110); POTASSIUM 4.7 mmol/L (3.6-5.0); SODIUM 135.7 mmol/L (137-145)
[2017-04-22] MEDS: BUDESONIDE NEB 0.5 MG/2 ML AMPUL NEB SCH ×2 (07:41→20:32)
[2017-04-22] MEDS: FLUTICASONE NASAL SPRAY 50 MCG/SPRY 120 SPRAY/16 GM NASL SCH ×2 (10:02→21:29)
[2017-04-22] MEDS: DULOXETINE HCL 30 MG CAPSULE.DR PO SCH ×2 (10:02→21:28)
[2017-04-22] MEDS: GUAIFENESIN 600 MG TABLET.SA PO SCH ×2 (10:02→21:28)
[2017-04-22] MEDS: CHOLECALCIFEROL (D3) 1,000 UNIT TABLET PO SCH (10:02)
[2017-04-22] MEDS: AMLODIPINE BESYLATE 5 MG TABLET PO SCH (10:02)
[2017-04-22] MEDS: LISINOPRIL 10 MG TABLET PO SCH (10:02)
[2017-04-22] MEDS: GABAPENTIN 300 MG CAPSULE PO SCH ×2 (10:02→17:19)
[2017-04-22] MEDS: OSELTAMIVIR PHOSPHATE 75 MG CAPSULE PO SCH ×2 (10:03→17:19)
[2017-04-22] MEDS: INSULIN LISPRO 100 UNIT/ML 3 ML VIAL SUBCUT PRN ×3 (12:50→22:39)
--- NOTE | 2017-04-22 17:26 | PDOC PROGRESS REPORT ---
Subjective Progress Note for:: 04/22/17 Subjective:: Patient relates that feels short of breath and gets better when using the BiPAP. She is having some cough which is mostly during the day. Review of system All organ systems evaluated and negative except as seen subjective All significant laboratories and diagnostics have been reviewed Reason For Visit: MORBID OBESITY COPD EXACERBATION PNEUMONIA Physical Exam Vital Signs: Temp Pulse Resp BP Pulse Ox 97.8 F 66 29 H 143/59 H 95 04/22/17 03:38 04/22/17 03:38 04/22/17 03:38 04/22/17 03:38 04/22/17 03:38 Intake & Output 04/21/17 04/22/17 04/23/17 06:59 06:59 06:59 Intake Total 1278 1289 Output Total 1000 Balance 1278 289 Weight 110.4 kg 109.5 kg Results Laboratory Results: 04/18/17 11:35 04/22/17 05:00 04/22/17 05:00 Sodium 135.7 L Potassium 4.7 Chloride 96 L Carbon Dioxide 27 Anion Gap 13 BUN 27 H Creatinine 0.65 Est GFR ( Amer) > 60 Est GFR (Non-Af Amer) > 60 Glucose 240 H Calcium 9.5 Magnesium 1.6 Impressions: Chest X-Ray 04/18/17 00:00 IMPRESSION: Cardiomegaly. Right central venous line at cavoatrial junction. Lung Scan-VQ NM 04/18/17 09:41 IMPRESSION: Low probability for pulmonary embolus. Assessment & Plan - Diagnosis (1) Acute bronchitis Qualifiers: Bronchitis organism: unspecified organism Qualified Code(s): J20.9 - Acute bronchitis, unspecified Is this a current diagnosis for this admission?: Yes Plan: Will discontinue antibiotic since appears to be mostly viral (2) Hypomagnesemia Is this a current diagnosis for this admission?: Yes Plan: Resolved (3) Obesity Qualifiers: Obesity type: due to excess calories Body mass index: BMI 40.0-44.9 Is this a current diagnosis for this admission?: Yes Plan: Had been educated to lose weight (4) Obstructive sleep apnea Is this a current diagnosis for this admission?: Yes Plan: Continue for now BiPAP while in-house (5) Reactive airway disease with wheezing with acute exacerbation Qualifiers: Asthma severity: severe Asthma persistence: persistent Qualified Code(s) : J45.51 - Severe persistent asthma with (acute) exacerbation Is this a current diagnosis for this admission?: Yes Plan: Presentation is more consistent with vital illness (6) Dyspnea Qualifiers: Dyspnea type: unspecified Qualified Code(s): R06.00 - Dyspnea, unspecified Is this a current diagnosis for this admission?: Yes Plan: Persisting. Will order an echocardiogram. Will order 1 dose of Lasix despite the BNP is normal since can be underestimated due to obesity - Time Time Spent with patient: 15-24 minutes Medications reviewed and adjusted accordingly: Yes Anticipated discharge: Home Within: within 48 hours - Inpatient Certification Based on my medical assessment, after consideration of the patient's comorbidities, presenting symptoms, or acuity I expect that the services needed warrant INPATIENT care.: Yes I certify that my determination is in accordance with my understanding of Medicare's requirements for reasonable and necessary INPATIENT services [42 CFR 412.3e].: Yes Medical Necessity: Need Close Monitoring Due to Risk of Patient Decompensation
[2017-04-22] MEDS ORDERED: FUROSEMIDE INJ/PF 20 MG/2 ML SDV IV ONE (18:00)
[2017-04-22] MEDS: ATORVASTATIN CALCIUM 20 MG TABLET PO SCH (21:28)
[2017-04-23] MEDS: IPRATROPIUM/ALBUTEROL 0.5-2.5 MG/3 ML AMPUL NEB SCH ×3 (02:09→13:48)
[2017-04-23] MEDS: LEVOTHYROXINE SODIUM 0.1 MG TABLET PO SCH (05:18)
[2017-04-23] MEDS: HEPARIN SOD (PORCINE) 5,000 UNIT/ML 1 ML SYRINGE SUBCUT SCH ×2 (05:18→14:07)
[2017-04-23] MEDS: BUDESONIDE NEB 0.5 MG/2 ML AMPUL NEB SCH (08:06)
[2017-04-23] MEDS: GABAPENTIN 300 MG CAPSULE PO SCH (11:47)
[2017-04-23] MEDS: OSELTAMIVIR PHOSPHATE 75 MG CAPSULE PO SCH (11:48)
[2017-04-23] MEDS: AMLODIPINE BESYLATE 5 MG TABLET PO SCH (11:49)
[2017-04-23] MEDS: LISINOPRIL 10 MG TABLET PO SCH (11:51)
[2017-04-23] MEDS: CHOLECALCIFEROL (D3) 1,000 UNIT TABLET PO SCH (11:52)
[2017-04-23] MEDS: GUAIFENESIN 600 MG TABLET.SA PO SCH (11:52)
[2017-04-23] MEDS: DULOXETINE HCL 30 MG CAPSULE.DR PO SCH (11:53)
[2017-04-23] MEDS: FLUTICASONE NASAL SPRAY 50 MCG/SPRY 120 SPRAY/16 GM NASL SCH (11:54)
[2017-04-23 15:48] VITALS: BP 148/68
--- NOTE | 2017-04-23 16:35 | PDOC DISCHARGE SUMMARY ---
General - Admit/Disc Date/PCP Admission Date/Primary Care Provider: 04/17/17 23:31 SOSA VARELA, Discharge Date: 04/23/17 - Discharge Diagnosis (1) Reactive airway disease with wheezing with acute exacerbation Is this a current diagnosis for this admission?: Yes (2) Acute bronchitis Is this a current diagnosis for this admission?: Yes (3) Hypomagnesemia Is this a current diagnosis for this admission?: Yes (4) Obesity Is this a current diagnosis for this admission?: Yes (5) Obstructive sleep apnea Is this a current diagnosis for this admission?: Yes (6) Dyspnea Is this a current diagnosis for this admission?: Yes - Additional Information Resuscitation Status: Full Code Discharge Diet: Diabetic Discharge Activity: Activity As Tolerated Prescriptions: Benzonatate [Tessalon Perle 100 mg Capsule] 100 mg PO Q8HP PRN #40 cap PRN Reason: Home Medications: Albuterol Sulfate [Ventolin HFA MDI 18 GM] 2 puff IH QID 04/18/17 Amlodipine Besylate [Norvasc 5 mg Tablet] 5 mg PO DAILY 04/18/17 Calcium Carbonate [Calcium] 500 mg PO DAILY 04/18/17 Duloxetine HCl [Cymbalta] 60 mg PO BID 04/18/17 Gabapentin [Neurontin 300 mg Capsule] 300 mg PO TID 04/18/17 Levothyroxine Sodium [Synthroid 0.1 mg Tablet] 0.1 mg PO DAILY 04/18/17 Magnesium Oxide [Magnesium] 400 mg PO DAILY 04/18/17 Metformin HCl [Metformin HCl ER] 1,000 mg PO BID 04/18/17 Omeprazole 40 mg PO DAILY 04/18/17 Rosuvastatin Calcium [Crestor 20 mg Tablet] 20 mg PO QHS 04/18/17 Trazodone HCl [Desyrel 50 mg Tablet] 50 mg PO QHS 04/18/17 Benzonatate [Tessalon Perle 100 mg Capsule] 100 mg PO Q8HP PRN #40 cap 04/23/17 History of Present Illness History of Present Illness: JOYCELYN HOLLOWAY is a 67 year old female with a past medical history of morbid obesity, obstructive sleep apnea, COPD, depression, dyslipidemia, diabetes and GERD. She presents with several days of exceptional shortness of breath with wheeze not relieved by albuterol. She has been exposed to several family members with upper respiratory symptoms that she denies rhinorrhea or sore throat. She denied recent antibiotics in the emergency room. She was tachypneic with global wheeze and poor air movement. She was placed on BiPAP after several albuterol and Atrovent treatments failed to reverse her complaints. Patient denied recent change in medications. The hospitalist service was consulted for further management. Hospital Course Hospital Course: Patient was admitted under the hospitalist. Her presentation was primarily due to reactive airway disease due to viral illness. However due to comorbidities she was also placed on oral antibiotic. Patient required placement on BiPAP for improvement of complaints of dyspnea. Patient was evaluated thru V/Q scan which was low probability. Patient has been encouraged as to use incentive spirometer. Patient has also been encouraged as to lifestyle modifications. Echocardiogram was done on the day of discharge. Recommend primary care provider to follow-up echocardiogram final report. Since patient had improved considered that this could be safely be followed-up as up as outpatient and prompted to discharge Physical Exam Vital Signs: Temp Pulse Resp BP Pulse Ox 98.2 F 71 16 118/64 91 L 04/23/17 07:52 04/23/17 08:06 04/23/17 08:06 04/23/17 07:52 04/23/17 08:06 Intake & Output 04/22/17 04/23/17 04/24/17 06:59 06:59 06:59 Intake Total 1289 1051 Output Total 1000 Balance 289 1051 Weight 109.5 kg 107.4 kg General appearance: PRESENT: cooperative, morbidly obese Head exam: PRESENT: atraumatic, normocephalic Eye exam: PRESENT: conjunctiva pink, EOMI, PERRLA Ear exam: PRESENT: normal external ear exam Mouth exam: PRESENT: moist Neck exam: PRESENT: full ROM. ABSENT: JVD, lymphadenopathy, tenderness Respiratory exam: PRESENT: clear to auscultation vicky Cardiovascular exam: PRESENT: RRR. ABSENT: diastolic murmur, systolic murmur Vascular exam: PRESENT: normal capillary refill GI/Abdominal exam: PRESENT: normal bowel sounds, soft. ABSENT: tenderness Extremities exam: PRESENT: full ROM. ABSENT: pedal edema Musculoskeletal exam: PRESENT: ambulatory Neurological exam: PRESENT: alert, awake, oriented to person, oriented to place , oriented to time, oriented to situation, CN II-XII grossly intact Psychiatric exam: PRESENT: appropriate affect, normal mood Skin exam: PRESENT: intact, normal color Results Laboratory Results: 04/18/17 11:35 04/22/17 05:00 Impressions: Chest X-Ray 04/18/17 00:00 IMPRESSION: Cardiomegaly. Right central venous line at cavoatrial junction. Lung Scan-VQ NM 04/18/17 09:41 IMPRESSION: Low probability for pulmonary embolus. Qualifiers - * PATEINT BEING DISCHARGED WITH ANY OF THE FOLLOWING DIAGNOSIS?: No Plan Discharge Plan: Discharge home Time Spent: Less than 30 Minutes
--- NOTE | 2017-04-23 18:12 | XCELERA REPORT ---
[address] [address] Transthoracic Echocardiogram Report Name: JOYCELYN HOLLOWAY Age: 67 yrs Gender: Female : 1950 Patient Status: Inpatient Patient Location: [address] [place], [place] [address] Study Date: 04/23/2017 10:44 AM Height: 62 in Weight: 241 lb BSA: 2.1 m2 Procedure: A complete two-dimensional transthoracic echocardiogram was performed (2D, M-mode, spectral and color flow Doppler). The study was technically adequate with some images being suboptimal in quality. Reason For Study: dyspnea Ordering Physician: RACHEAL HERNÁNDEZ Performed By: Kristie Moe Interpretation Summary The left ventricular ejection fraction is normal. There is mild concentric left ventricular hypertrophy. Doppler measurements suggest pseudonormalized left ventricular relaxation, which is associated with grade II/IV or mild to moderate diastolic dysfunction The left ventricle is grossly normal size. Wall motion cannot be accurately commented on, but no definite regional wall motion abnormalities noted. The right ventricular systolic function is normal. The left atrium is mildly dilated. The right atrium is normal in size There is a trace amount of mitral regurgitation There is no mitral valve stenosis. No aortic regurgitation is present. There is no aortic valve stenosis There is a trace or physiologic amount of tricuspid regurgitation Tricuspid regurgitation jet envelope not well defined to measure RV systolic pressure accurately. The aortic root is not well visualized but is probably normal size. The inferior vena cava was not well visualized There is no pericardial effusion. MMode/2D Measurements & Calculations RVDd: 3.4 cm LVIDd: 4.6 cm FS: 39.7 % Ao root diam: 3.0 cm IVSd: 0.99 cm LVIDs: 2.8 cm EDV(Teich): 97.7 ml LVPWd: 1.0 cm ESV(Teich): 28.9 ml Ao root area: 6.9 cm2 EF(Teich): 70.4 % LA dimension: 3.9 cm Doppler Measurements & Calculations MV E max shmuel: MV P1/2t max shmuel: Ao V2 max: LV V1 max P.0 cm/sec 76.5 cm/sec 141.2 cm/sec 6.2 mmHg MV A max shmuel: MV P1/2t: 56.8 msec Ao max PG: LV V1 max: 83.9 cm/sec 8.0 mmHg 124.4 cm/sec MV E/A: 0.91 MVA(P1/2t): 3.9 cm2 MV dec slope: 394.6 cm/sec2 MV dec time: 0.21 sec PA V2 max: 90.8 cm/sec PA max P.3 mmHg Left Ventricle The left ventricle is grossly normal size. There is mild concentric left ventricular hypertrophy. The left ventricular ejection fraction is normal. Doppler measurements suggest pseudonormalized left ventricular relaxation, which is associated with grade II/IV or mild to moderate diastolic dysfunction. Wall motion cannot be accurately commented on, but no definite regional wall motion abnormalities noted. Right Ventricle The right ventricle is grossly normal size. There is normal right ventricular wall thickness. The right ventricular systolic function is normal. Atria The right atrium is normal in size. The left atrium is mildly dilated. Interarterial septum not well visualized and not well dopplered. Cannot comment on ASD/PFO presence. Mitral Valve The mitral valve is grossly normal. There is no mitral valve stenosis. There is a trace amount of mitral regurgitation. Aortic Valve The aortic valve opens well. There is no aortic valve stenosis. No aortic regurgitation is present. Tricuspid Valve The tricuspid valve is not well visualized secondary to technical limitations. There is no tricuspid stenosis. There is a trace or physiologic amount of tricuspid regurgitation. Tricuspid regurgitation jet envelope not well defined to measure RV systolic pressure accurately. Pulmonic Valve The pulmonic valve is not well visualized. Great Vessels The aortic root is not well visualized but is probably normal size. The inferior vena cava was not well visualized. Effusions There is no pericardial effusion. : RACHEAL HERNÁNDEZ > Bella Sanchez
--- NOTE | 2017-04-27 07:28 | PDOC PROGRESS REPORT ---
Subjective Progress Note for:: 04/19/17 Subjective:: Patient seen on rounds. She is sitting on the side of bed off BIPAP eating her lunch. She continues to have cough and mild wheezing. She denies dyspnea or chest pain at rest. She denies any nausea, vomiting or diarrhea. She denies any significant arthralgias or myalgias. Remaining review of systems are negative. Reason For Visit: MORBID OBESITY COPD EXACERBATION PNEUMONIA Physical Exam Vital Signs: Temp Pulse Resp BP Pulse Ox 97.7 F 76 30 H 139/73 H 93 04/19/17 07:23 04/19/17 07:55 04/19/17 12:05 04/19/17 07:23 04/19/17 12:05 Intake & Output 04/18/17 04/19/17 04/20/17 06:59 06:59 06:59 Intake Total 860 Balance 860 Weight 112.2 kg General appearance: PRESENT: no acute distress, morbidly obese, well-developed, well-nourished Head exam: PRESENT: atraumatic, normocephalic Eye exam: PRESENT: conjunctiva pink, EOMI, PERRLA. ABSENT: scleral icterus Ear exam: PRESENT: normal external ear exam Mouth exam: PRESENT: moist, tongue midline Respiratory exam: PRESENT: decreased breath sounds - expiratory, bilaterally, symmetrical, unlabored, wheezes Cardiovascular exam: PRESENT: RRR. ABSENT: diastolic murmur, rubs, systolic murmur Pulses: PRESENT: normal dorsalis pedis pul Vascular exam: PRESENT: normal capillary refill GI/Abdominal exam: PRESENT: normal bowel sounds, soft. ABSENT: distended, guarding, mass, organolmegaly, rebound, tenderness Rectal exam: PRESENT: deferred Extremities exam: PRESENT: full ROM. ABSENT: calf tenderness, clubbing, pedal edema Musculoskeletal exam: PRESENT: ambulatory, full ROM, normal inspection Neurological exam: PRESENT: alert, awake, oriented to person, oriented to place , oriented to time, oriented to situation, CN II-XII grossly intact. ABSENT: motor sensory deficit Psychiatric exam: PRESENT: appropriate affect, normal mood. ABSENT: homicidal ideation, suicidal ideation Skin exam: PRESENT: dry, intact, warm. ABSENT: cyanosis, rash Results Laboratory Results: 04/18/17 11:35 04/18/17 11:35 04/19/17 05:30 Magnesium 1.4 L Impressions: Chest X-Ray 04/18/17 00:00 IMPRESSION: Cardiomegaly. Right central venous line at cavoatrial junction. Lung Scan-VQ NM 04/18/17 09:41 IMPRESSION: Low probability for pulmonary embolus. Assessment & Plan - Diagnosis (1) Reactive airway disease with wheezing with acute exacerbation Qualifiers: Asthma severity: severe Asthma persistence: persistent Qualified Code(s) : J45.51 - Severe persistent asthma with (acute) exacerbation Is this a current diagnosis for this admission?: Yes Plan: She is off BIPAP at the present time. Begin steroid taper. Continue nebulizers. Increase activity (2) Acute bronchitis Qualifiers: Bronchitis organism: unspecified organism Qualified Code(s): J20.9 - Acute bronchitis, unspecified Is this a current diagnosis for this admission?: Yes Plan: As above. Complete course of antibiotics (3) Dyspnea Qualifiers: Dyspnea type: unspecified Qualified Code(s): R06.00 - Dyspnea, unspecified Is this a current diagnosis for this admission?: Yes (4) Hypertension Qualifiers: Hypertension type: essential hypertension Qualified Code(s): I10 - Essential (primary) hypertension Is this a current diagnosis for this admission?: Yes Plan: Continue current meds she is normotensive (5) Hypomagnesemia Is this a current diagnosis for this admission?: Yes (6) Obstructive sleep apnea Is this a current diagnosis for this admission?: Yes Plan: CPAP at HS and prn (7) Morbid obesity Is this a current diagnosis for this admission?: Yes Plan: Counseled - Time Time Spent with patient: 25-34 minutes Total Critical Time (Minutes): 15 Medications reviewed and adjusted accordingly: Yes Anticipated discharge: Home with Homehealth
== END 2017-04-23 17:24 | disposition home or self-care (01) | DRG 202 ==
LOC: ER 11:48 → EH 23:31 → 3W 04-18 17:14
PROVIDERS: ADMIT Internal Medicine; ATTEND Internal Medicine
PROC: 02HV33Z Insertion of Infusion Device into Superior Vena Cava, Percutaneous Approach (ICD-10-PCS; principal; 2017-04-18)
DX: J45.51 Severe persistent asthma with (acute) exacerbation (principal); E66.2 Morbid (severe) obesity with alveolar hypoventilation; Z68.41 Body mass index [BMI] 40.0-44.9, adult; J20.9 Acute bronchitis, unspecified; I25.10 Atherosclerotic heart disease of native coronary artery without angina pectoris; E83.42 Hypomagnesemia; E78.00 Pure hypercholesterolemia, unspecified; I10 Essential (primary) hypertension; E11.9 Type 2 diabetes mellitus without complications; K21.9 Gastro-esophageal reflux disease without esophagitis; F43.10 Post-traumatic stress disorder, unspecified; F32.9 Major depressive disorder, single episode, unspecified; Z79.2 Long term (current) use of antibiotics; Z79.84 Long term (current) use of oral hypoglycemic drugs; Z79.891 Long term (current) use of opiate analgesic; Z79.51 Long term (current) use of inhaled steroids; Z79.899 Other long term (current) drug therapy
CPT/HCPCS: 36415; 36600; 71045; 78582; 80048; 80053; 81001; 82803; 82962; 83036; 83735; 83880; 84484; 85025; 87040; 87086; 87088; 93005; 93010; 93306; 94640; 94660; 94667; 94668; 94799; 96365; 96366; 96375; 99285; A9540; A9567; C1751; J1642; J1644; J1815; J1940; J1956; J2920; J2930; J3475; J3490; J7620; Q9969

== ENCOUNTER 2017-07-04 06:49 | Emergency (ER) | payer MEDICARE, MEDICAID ==
[2017-07-04] MEDS ORDERED: NORMAL SALINE 1000 ML 1,000 ML IV ONE (07:20)
[2017-07-04] MEDS ORDERED: KETOROLAC TROMETHAMINE INJ/PF 30 MG/1 ML SDV IV ONE (07:54)
[2017-07-04] MEDS ORDERED: ONDANSETRON HCL INJ/PF 4 MG/2 ML SDV IV ONE (07:54)
[2017-07-04 07:56] LABS: APPEARANCE,URINE CLEAR; BILIRUBIN,URINE NEGATIVE (NEGATIVE); COLOR,URINE YELLOW; GLUCOSE, URINE NEGATIVE (NEGATIVE); KETONES,URINE NEGATIVE (NEGATIVE); LEUKOCYTE ESTERASE,URINE TRACE (NEGATIVE); NITRITE,URINE NEGATIVE (NEGATIVE); PROTEIN,URINE NEGATIVE (NEGATIVE); URINE SPECIFIC GRAVITY 1.018; UROBILINOGEN,URINE NEGATIVE mg/dL (<2.0)
[2017-07-04 08:12] LABS: ALANINE AMINOTRANSFERASE 49 U/L (9-52); ALKALINE PHOSPHATASE 93 U/L (38-126); ANION GAP 18 (5-19); ASPARTATE AMINO TRANSFERASE 64 U/L (14-36); BILIRUBIN,DIRECT 0.2 mg/dL (0.0-0.4); BILIRUBIN,TOTAL 0.2 mg/dL (0.2-1.3); BLOOD UREA NITROGEN 37 mg/dL (7-20); CALCIUM 10.1 mg/dL (8.4-10.2); CARBON DIOXIDE 23 mmol/L (22-30); CHLORIDE 104 mmol/L (98-107); GLUCOSE 152 mg/dL (75-110); LIPASE 169.4 U/L (23-300); POTASSIUM 4.7 mmol/L (3.6-5.0); SODIUM 144.7 mmol/L (137-145)
[2017-07-04 08:13] LABS: ABSOLUTE BASOPHILS # (AUTO) 0.1 10^3/uL (0.0-0.2); ABSOLUTE EOSINOPHILS # (AUTO) 0.2 10^3/uL (0.0-0.6); ABSOLUTE LYMPHOCYTES (AUTO) 1.6 10^3/uL (0.5-4.7); ABSOLUTE MONOCYTES (AUTO) 0.7 10^3/uL (0.1-1.4); ABSOLUTE NEUT (AUTO) 6.4 10^3/uL (1.7-8.2); HEMATOCRIT 32.6 % (36.0-47.0); HEMOGLOBIN 10.5 g/dL (12.0-15.5); LYMPHOCYTES % (AUTO) 18.2 % (13-45); MEAN CORPUSCULAR VOLUME 81 fl (80-97); PLATELET COUNT 213 10^3/uL (150-450); RED BLOOD COUNT 4.03 10^6/uL (3.72-5.28); RED CELL DISTRIBUTION WIDTH 19.7 % (11.5-14.0); SEGMENTED NEUTROPHILS % (AUTO) 70.8 % (42-78); TOTAL CELLS COUNTED % (AUTO) 100 %
--- NOTE | 2017-07-04 09:08 | RADIOLOGY REPORT (SQ) ---
EXAM DESCRIPTION: CT ABD/PELVIS WITH IV ONLY COMPLETED DATE/TIME: 07/04/2017 8:58 am REASON FOR STUDY: llq pain hx of diverticulitis COMPARISON: 10/08/2015 TECHNIQUE: CT scan of the abdomen and pelvis performed using helical scanning technique with dynamic intravenous contrast injection. No oral contrast. Images reviewed with lung, soft tissue, and bone windows. Reconstructed coronal and sagittal MPR images reviewed. Delayed images for evaluation of the urinary system also acquired. All images stored on PACS. All CT scanners at this facility use dose modulation, iterative reconstruction, and/or weight based d osing when appropriate to reduce radiation dose to as low as reasonably achievable (ALARA). [facility]: Dose Right [facility]: CareDose [facility]: Dose Right [facility]: Teradose 4D [facility]: SimpleTuition CONTRAST TYPE AND DOSE: contrast/concentration: Isovue 370.00 mg/ml; Total Contrast Delivered: 100.0 ml; Total Saline Delivered: 72.0 ml RENAL FUNCTION: GFR > 60. RADIATION DOSE: CT Rad equipment meets quality standard of care and radiation dose reduction techniq ues were employed. CTDIvol: 20.8 - 21.1 mGy. DLP: 2196 mGy-cm.. LIMITATIONS: None. FINDINGS: LOWER CHEST: No significant findings. No nodules or infiltrates. LIVER: Normal size. Tiny low attenuating lesion left hepatic lobe too small to adequately characteri ze most likely represents a benign cyst or hemangioma. No additional masses. No dilated ducts. SPLEEN: Normal size. No focal lesions. PANCREAS: No masses. No significant calcifications. No adjacent inflammation or peripancreatic fluid collections. Pancreatic duct not dilated. GALLBLADDER: No identified stones by CT criteria. No inflammatory changes to suggest cholecystitis. ADRENAL GLANDS: No significant masses or asymmetry. RIGHT KIDNEY AND URETER: No solid masses. No significant calcifications. No hydronephrosis or hyd roureter. LEFT KIDNEY AND URETER: No solid masses. No significant calcifications. No hydronephrosis or hydr oureter. AORTA AND VESSELS: Atherosclerotic calcifications. No aneurysm. No dissection. Renal arteries, SMA, celiac without stenosis. RETROPERITONEUM: No retroperitoneal adenopathy, hemorrhage or masses. BOWEL AND PERITONEAL CAVITY: Stable postsurgical change related to partial colon resection. Acute in flammation of the sigmoid colon in the setting of diverticula compatible with acute diverticulitis. No abscess or free air. APPENDIX: Normal. PELVIS: No mass. No free fluid. Normal bladder. ABDOMINAL WALL: No masses. Small fat containing periumbilical hernia. BONES: No significant or acute findings. OTHER: No other significant finding. IMPRESSION: ACUTE SIGMOID DIVERTICULITIS WITHOUT ABSCESS OR FREE AIR. ADDITIONAL CHRONIC CHANGES ABOVE. TECHNICAL DOCUMENTATION: JOB ID: [id number] Quality ID # [id number]: Final reports with documentation of one or more dose reduction techniques (e.g., Au tomated exposure control, adjustment of the mA and/or kV according to patient size, use of iterative reconstruction technique) 2010 [employer]- All Rights Reserved Reading location - IP/workstation name: [email or web address]
[2017-07-04] MEDS ORDERED: CIPROFLOXACIN HCL 500 MG TABLET PO ONE (09:35)
[2017-07-04] MEDS ORDERED: METRONIDAZOLE 500 MG TABLET PO ONE (09:35)
[2017-07-04] MEDS ORDERED: MORPHINE SULFATE 10 MG/ML INJ IV ONE (10:19)
--- NOTE | 2017-07-04 11:18 | ER Document Report ---
ED General - General Chief Complaint: Abdominal Pain Stated Complaint: ABDOMINAL PAIN Time Seen by Provider: 07/04/17 07:11 TRAVEL OUTSIDE OF THE [place] IN LAST 30 DAYS: No - HPI Patient complains to provider of: Left lower quadrant pain Notes: Patient coming in for evaluation of lower quadrant pain. Patient ongoing for the last 24-48 hours. Denies any nausea vomiting diarrhea. Denies any bloody stools. Patient resting company upon my evaluation. Patient states she does have a history of kidney stones and diverticulitis. Patient denies any recent antibiotics. - Related Data Allergies/Adverse Reactions: codeine [Codeine] Allergy (Severe, Verified 11/27/16 14:32) stopped breathing acetaminophen [From Darvocet-N 100] Allergy (Intermediate, Verified 11/27/16 14: 32) Hallucinations latex [Latex] Allergy (Intermediate, Verified 11/27/16 14:32) Hives propoxyphene HCl [From Darvon] Allergy (Intermediate, Verified 11/27/16 14:32) Hallucinations aspirin [Aspirin] Adverse Reaction (Mild, Verified 11/27/16 14:32) n/v Home Medications: CA. MG. K+. glimepiride. neurotin. crestor. synthroid. lisinopril/hctz. trazadone. omeprazole. ventolin. ellipta. metfromin. cymbalta. amlodipine Past Medical History - Social History Smoking Status: Unknown if Ever Smoked Frequency of alcohol use: Rare Drug Abuse: None Family History: Reviewed & Not Pertinent, CAD, COPD, Other - Mother at age 50 due to DC. Brother with multiple CABG. Patient has suicidal ideation: No Patient has homicidal ideation: No - Past Medical History Cardiac Medical History: Reports: Hx Coronary Artery Disease, Hx Hypercholesterolemia, Hx Hypertension Denies: Hx Heart Attack Pulmonary Medical History: Reports: Hx Asthma, Hx Bronchitis, 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 Denies: Hx Peritoneal Dialysis GI Medical History: Reports: Hx Diverticulitis, Hx Gastroesophageal Reflux Disease Musculoskeltal Medical History: Reports Hx Arthritis - LEFT KNEE Psychiatric Medical History: Reports: Hx Depression, Hx Post Traumatic Stress Disorder Past Surgical History: Reports: Hx Abdominal Surgery - resection, Hx Cardiac Catheterization, Hx Hysterectomy, Hx Orthopedic Surgery - rt knee 05/2012, Hx Tonsillectomy, Hx Tubal Ligation. Denies: Hx Pacemaker - Immunizations Immunizations up to date: Yes Hx Diphtheria, Pertussis, Tetanus Vaccination: Yes Hx Pneumococcal Vaccination: 07/31/11 Review of Systems - Review of Systems Constitutional: No symptoms reported EENT: No symptoms reported Cardiovascular: No symptoms reported Respiratory: No symptoms reported Gastrointestinal: Abdominal pain Genitourinary: No symptoms reported Female Genitourinary: No symptoms reported Musculoskeletal: No symptoms reported Skin: No symptoms reported Hematologic/Lymphatic: No symptoms reported Neurological/Psychological: No symptoms reported -: Yes All other systems reviewed and negative Physical Exam - Vital signs Vitals: Temp Pulse Resp BP Pulse Ox 98.5 F 81 18 133/62 H 93 07/04/17 10:07/04/17 10:07/04/17 10:01 07/04/17 10:01 07/04/17 10:01 Interpretation: Normal - General General appearance: Appears well, Alert - HEENT Head: Normocephalic, Atraumatic Eyes: Normal Pupils: PERRL - Respiratory Respiratory status: No respiratory distress Chest status: Nontender Breath sounds: Normal Chest palpation: Normal - Cardiovascular Rhythm: Regular Heart sounds: Normal auscultation Murmur: No - Abdominal Inspection: Normal Distension: No distension Bowel sounds: Normal Tenderness: Tender - Left lower quadrant abdominal pain mild to moderate tenderness to palpation. No: Guarding, Rebound, Other Organomegaly: No organomegaly - Back Back: Normal, Nontender - Extremities General upper extremity: Normal inspection, Nontender, Normal color, Normal ROM , Normal temperature General lower extremity: Normal inspection, Nontender, Normal color, Normal ROM , Normal temperature, Normal weight bearing. No: Becky's sign - Neurological Neuro grossly intact: Yes Cognition: Normal Orientation: AAOx4 [place] Coma Scale Eye Opening: Spontaneous [place] Coma Scale Verbal: Oriented Leanne Coma Scale Motor: Obeys Commands [place] Coma Scale Total: 15 Speech: Normal Motor strength normal: LUE, RUE, LLE, RLE Sensory: Normal - Psychological Associated symptoms: Normal affect, Normal mood - Skin Skin Temperature: Warm Skin Moisture: Dry Skin Color: Normal Course - Re-evaluation Re-evalutation: 07/04/17 14:52 Patient coming in for evaluation of left lower quadrant abdominal pain with CT scan showing signs of sigmoid diverticulitis. Patient was able tolerate p.o. Flagyl and Cipro. Discussed the patient about discharge home with oral antibiotics and pain medication morning were given of constipation caused by pain medication. Patient states understanding. At discharge patient was found to have a pulse ox of 83%. Patient was lying flat and this was performed. Patient states she does have a history of her story failure sleep apnea and states that whenever she lies flat she has to wear her CPAP. Patient states normally sitting up she does not require any oxygen. Patient was monitored in ER sitting up and ambulated around the ER with no signs of further hypoxia or lowest pulse ox at 88 highest at 96 with patient was ambulating. More likely this is pickwickian in nature as well. Patient agrees with discharge home. 07/04/17 15:14 - Vital Signs Vital signs: Temp Pulse Resp BP Pulse Ox 98.1 F 79 18 139/57 H 85 L 07/04/17 11:36 07/04/17 11:36 07/04/17 11:36 07/04/17 11:36 07/04/17 11:36 - Laboratory Result Diagrams: 07/04/17 07:39 07/04/17 07:39 Laboratory results interpreted by me: 07/04/17 07/04/17 07/04/17 07:39 07:39 07:39 Hgb 10.5 L Hct 32.6 L MCH 26.0 L RDW 19.7 H BUN 37 H Glucose 152 H AST 64 H Ur Leukocyte Esterase TRACE H Discharge - Discharge Clinical Impression: Diverticulitis Condition: Good Disposition: HOME, SELF-CARE Instructions: Ciprofloxacin ([facility]), Diverticulitis ([facility]), Low Residue Diet ([facility]) , Metronidazole ([facility]), Oral Narcotic Medication ([facility]) Additional Instructions: Laboratory results and physical examination CT scan consistent with acute diverticulitis. Please take antibiotics as prescribed. Please take stool softeners if you are taking the pain medication would recommend taking Tylenol and Motrin as well for pain control. Return to ER if symptoms worsen follow-up with your primary care physician. Prescriptions: Ciprofloxacin HCl [Cipro 500 mg Tablet] 500 mg PO BID #20 tablet Docusate Sodium [Colace 100 mg Capsule] 100 mg PO DAILY #30 capsule Metronidazole [Flagyl 500 mg Tablet] 500 mg PO Q6H #40 tablet Promethazine HCl [Phenergan 25 mg Tablet] 25 mg PO Q6 #30 tablet Tramadol HCl [Ultram 50 mg Tablet] 50 mg PO ASDIR PRN #20 tablet PRN Reason: Referrals: SOSA VARELA DO [Primary Care Provider] - Follow up as needed
[2017-07-04 11:36] VITALS: BP 139/57
== END 2017-07-04 12:05 | disposition home or self-care (01) ==
LOC: ER 06:49
DX: K57.92 Diverticulitis of intestine, part unspecified, without perforation or abscess without bleeding (principal); R10.32 Left lower quadrant pain; I25.10 Atherosclerotic heart disease of native coronary artery without angina pectoris; E78.00 Pure hypercholesterolemia, unspecified; I10 Essential (primary) hypertension; J44.9 Chronic obstructive pulmonary disease, unspecified; Z88.6 Allergy status to analgesic agent; Z91.040 Latex allergy status; Z87.442 Personal history of urinary calculi; Z90.710 Acquired absence of both cervix and uterus
CPT/HCPCS: 99284; 96361; 96374; 96375; 36415; 83690; 85025; 80053; 81001; 74177; A9270 ×2; J1885; J2270; J2405; J7030

== ENCOUNTER → 2017-07-30 | Outpatient (CLI) | payer MEDICARE, MEDICAID ==
--- NOTE | 2017-07-30 09:49 | RADIOLOGY REPORT (SQ) ---
EXAM DESCRIPTION: LUMBAR SPINE COMPLETE COMPLETED DATE/TIME: 07/30/2017 9:20 am REASON FOR STUDY: LUMBAGO WITH SCIATICA, LEFT SIDE M54.42 LUMBAGO WITH SCIATICA, LEFT SIDE COMPARISON: None. NUMBER OF VIEWS: Five views including obliques. TECHNIQUE: AP, lateral, oblique, and sacral radiographic images acquired of the lumbar spine. LIMITATIONS: None. FINDINGS: MINERALIZATION: Normal. SEGMENTATION: Normal. No transitional anatomy. ALIGNMENT: Normal. VERTEBRAE: Maintained height. No fracture or worrisome bone lesion. DISCS: Preserved height. No significant osteophytes or end plate irregularity. POSTERIOR ELEMENTS: Pedicles and facets are intact. No pars defect or posterior arch defects. There is moderate left L4-5 facet arthropathy, and marked right L5-S1 facet arthropathy HARDWARE: None in the spine. PARASPINAL SOFT TISSUES: Normal. PELVIS: Not included in the field of view OTHER: No other significant finding. IMPRESSION: Lower lumbar facet arthropathy TECHNICAL DOCUMENTATION: JOB ID: [id number] [employer]- All Rights Reserved Reading location - IP/workstation name: [email or web address]
== END ==
LOC: OD 08:56
PROVIDERS: ATTEND Family Medicine
DX: M54.42 Lumbago with sciatica, left side (principal)
CPT/HCPCS: 72110

== ENCOUNTER 2017-10-14 14:02 | Inpatient (IN) | payer MEDICARE, MEDICAID ==
--- NOTE | 2017-10-14 14:39 | ER Document Report ---
ED General - General Chief Complaint: Shortness Of Breath Stated Complaint: SHORTNESS OF BREATH, HEADACHE Time Seen by Provider: 10/14/17 14:38 Notes: This is a 67-year-old female history of COPD. Wears CPAP who has been at home on her CPAP now for several days and getting worse. Daughter says that she forced her to come in as her breathing was so severe that she was worried she was going to . Patient states that she cannot seem to stop the coughing. Feels like she is wheezing. Having a fever. Feels like she may have a pneumonia. TRAVEL OUTSIDE OF THE [place] IN LAST 30 DAYS: No - HPI Onset: Yesterday Onset/Duration: Gradual, Worse Quality of pain: No pain Severity: Moderate Associated symptoms: Chills, Nonproductive cough, Fever, Shortness of breath Exacerbated by: Movement Relieved by: Denies - Related Data Allergies/Adverse Reactions: codeine [Codeine] Allergy (Severe, Verified 10/14/17 14:09) stopped breathing acetaminophen [From Darvocet-N 100] Allergy (Intermediate, Verified 10/14/17 14: 09) Hallucinations latex [Latex] Allergy (Intermediate, Verified 10/14/17 14:09) Hives propoxyphene HCl [From Darvon] Allergy (Intermediate, Verified 10/14/17 14:09) Hallucinations aspirin [Aspirin] Adverse Reaction (Mild, Verified 10/14/17 14:09) n/v Past Medical History - General Information source: Patient - Social History Smoking Status: Current Every Day Smoker - Discharge Frequency of alcohol use: None Drug Abuse: None Family History: Reviewed & Not Pertinent, CAD, COPD, Other - Mother at age 50 due to [place]. Brother with multiple CABG. - Past Medical History Cardiac Medical History: Reports: Hx Coronary Artery Disease, Hx Hypercholesterolemia, Hx Hypertension Denies: Hx Heart Attack Pulmonary Medical History: Reports: Hx Asthma, Hx Bronchitis, 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 Denies: Hx Peritoneal Dialysis GI Medical History: Reports: Hx Diverticulitis, Hx Gastroesophageal Reflux Disease Musculoskeletal Medical History: Reports Hx Arthritis - LEFT KNEE Psychiatric Medical History: Reports: Hx Depression, Hx Post Traumatic Stress Disorder Past Surgical History: Reports: Hx Abdominal Surgery - resection, Hx Cardiac Catheterization, Hx Hysterectomy, Hx Orthopedic Surgery - rt knee 05/2012, Hx Tonsillectomy, Hx Tubal Ligation. Denies: Hx Pacemaker - Immunizations Immunizations up to date: Yes Hx Diphtheria, Pertussis, Tetanus Vaccination: Yes Hx Pneumococcal Vaccination: 07/31/11 Review of Systems - Review of Systems Notes: Constitutional: Review of systems positive for chills, sweats and intermittent fevers at home EENT: denies: Eye discharge, Blurred vision, Tearing, Double vision, Nose congestion, Nose discharge, Throat swelling, Mouth pain Cardiovascular: Denies any chest pain at this time but does complain of heart racing and shortness of breath. Respiratory: Respiratory distress, shortness of breath, cough, wheeze Gastrointestinal: denies: Abdominal pain, Diarrhea, Nausea, Vomiting, Black stools, bright red blood in stool Genitourinary: denies: Burning, Dysuria, Discharge, Frequency, Flank pain, Hematuria Musculoskeletal: denies: Joint pain, Joint swelling, Muscle pain, Muscle stiffness, back pain Hematologic/Lymphatic: denies: Anemia, Easy bleeding, Easy bruising, Blood clots Neurological/Psychological: denies: Confusion, Dementia, Depression, Loss of consciousness Skin: No lesions, no masses, no skin breakdown, no abscesses Physical Exam - Vital signs Vitals: Pulse Ox 92 10/14/17 14:18 Interpretation: Tachycardic, Hypoxic, Tachypneic - Notes Notes: This is a morbid obese 67-year-old female in respiratory distress with tachycardia and O2 saturations of 87% on room air on arrival to bedside. Patient is tachycardic with a heart rate of 110. Blood pressure 150/74. - General General appearance: Appears well, Alert - HEENT Head: Normocephalic, Atraumatic Eyes: Normal Pupils: PERRL - Respiratory Respiratory status: Labored, Tachypnea Chest status: Nontender Breath sounds: Wheezing Chest palpation: Normal - Cardiovascular Rhythm: Tachycardia Heart sounds: Normal auscultation Murmur: No - Abdominal Inspection: Normal Distension: No distension Bowel sounds: Normal Tenderness: Nontender Organomegaly: No organomegaly - Back Back: Normal, Nontender - Extremities General upper extremity: Normal inspection, Nontender, Normal color, Normal ROM , Normal temperature General lower extremity: Normal inspection, Nontender, Normal color, Normal ROM , Normal temperature. No: Edema, Becky's sign - Neurological Neuro grossly intact: Yes Cognition: Normal Orientation: AAOx4 [place] Coma Scale Eye Opening: Spontaneous [place] Coma Scale Verbal: Oriented [place] Coma Scale Motor: Obeys Commands Leanne Coma Scale Total: 15 Speech: Normal Motor strength normal: LUE, RUE, LLE, RLE Sensory: Normal - Psychological Associated symptoms: Normal affect, Normal mood - Skin Skin Temperature: Warm Skin Moisture: Dry Skin Color: Normal Course - Re-evaluation Re-evalutation: 10/14/17 15:34 Patient with respiratory distress. Some trace wheezing but definitely has some labored breathing. Breathing treatment steroids ordered. Chest x-ray ordered. Obviously patient is at increased risk for pulmonary embolism is as well. Will get a CT angios of the chest. Likely place on BiPAP at this time. ABG ordered. 10/14/17 17:41 Laboratory 10/14/17 10/14/17 10/14/17 14:30 14:30 14:30 WBC 6.9 RBC 3.67 L Hgb 9.5 L Hct 28.9 L MCV 79 L MCH 26.0 L MCHC 33.0 RDW 20.1 H Plt Count 179 Seg Neutrophils % 78.6 H Lymphocytes % 13.0 Monocytes % 7.3 Eosinophils % 0.6 Basophils % 0.5 Absolute Neutrophils 5.4 Absolute Lymphocytes 0.9 Absolute Monocytes 0.5 Absolute Eosinophils 0.0 Absolute Basophils 0.0 Carbonic Acid HCO3/H2CO3 Ratio ABG pH ABG pCO2 ABG pO2 ABG HCO3 ABG Total CO2 ABG O2 Saturation ABG Base Excess FiO2 Sodium 140.1 Potassium 4.1 Chloride 101 Carbon Dioxide 23 Anion Gap 16 BUN 21 H Creatinine 0.83 Est GFR ( Amer) > 60 Est GFR (Non-Af Amer) > 60 Glucose 124 H Lactic Acid 2.5 H Calcium 8.4 Total Bilirubin 0.4 Direct Bilirubin 0.3 Neonat Total Bilirubin Not Reportable Neonat Direct Bilirubin Not Reportable Neonat Indirect Bili Not Reportable AST 32 ALT 24 Alkaline Phosphatase 89 Creatine Kinase CK-MB (CK-2) Troponin I NT-Pro-B Natriuret Pep Total Protein 7.3 Albumin 4.1 10/14/17 10/14/17 10/14/17 14:30 14:30 15:30 WBC RBC Hgb Hct MCV MCH MCHC RDW Plt Count Seg Neutrophils % Lymphocytes % Monocytes % Eosinophils % Basophils % Absolute Neutrophils Absolute Lymphocytes Absolute Monocytes Absolute Eosinophils Absolute Basophils Carbonic Acid 1.13 HCO3/H2CO3 Ratio 20:1 ABG pH 7.42 ABG pCO2 37.5 ABG pO2 106.4 H ABG HCO3 23.6 ABG Total CO2 24.7 ABG O2 Saturation 98.0 ABG Base Excess -0.6 FiO2 6L Sodium Potassium Chloride Carbon Dioxide Anion Gap BUN Creatinine Est GFR ( Amer) Est GFR (Non-Af Amer) Glucose Lactic Acid Calcium Total Bilirubin Direct Bilirubin Neonat Total Bilirubin Neonat Direct Bilirubin Neonat Indirect Bili AST ALT Alkaline Phosphatase Creatine Kinase 59 CK-MB (CK-2) < 0.22 Troponin I < 0.012 NT-Pro-B Natriuret Pep 38 Total Protein Albumin Chest X-Ray 10/14/17 14:43 IMPRESSION: Cardiomegaly without CHF. Chest/Abdomen CTA 10/14/17 15:32 IMPRESSION: NORMAL CTA OF THE CHEST. NO PULMONARY EMBOLI. Patient is doing better at this time on BiPAP. CT of the chest was unremarkable. Labs actually quite unremarkable. Will consult with hospitalist for admission at this time. - Vital Signs Vital signs: Temp Pulse Resp BP Pulse Ox 99.9 F 33 H 143/59 H 94 10/14/17 14:24 10/14/17 16:01 10/14/17 16:01 10/14/17 16:01 - Laboratory Result Diagrams: 10/14/17 14:30 10/14/17 14:30 Laboratory results interpreted by me: 10/14/17 10/14/17 10/14/17 14:30 14:30 14:30 RBC 3.67 L Hgb 9.5 L Hct 28.9 L MCV 79 L MCH 26.0 L RDW 20.1 H Seg Neutrophils % 78.6 H ABG pO2 BUN 21 H Glucose 124 H Lactic Acid 2.5 H 10/14/17 15:30 RBC Hgb Hct MCV MCH RDW Seg Neutrophils % ABG pO2 106.4 H BUN Glucose Lactic Acid Critical Care Note - Critical Care Note Total time excluding time spent on procedures (mins): 60 Comments: Tachycardia, hypoxia Discharge - Discharge Clinical Impression: COPD (chronic obstructive pulmonary disease) Qualifiers: COPD type: unspecified COPD Qualified Code(s): J44.9 - Chronic obstructive pulmonary disease, unspecified Respiratory failure Qualifiers: Chronicity: acute Respiratory failure complication: hypoxia Qualified Code(s): J96.01 - Acute respiratory failure with hypoxia Condition: Good Disposition: ADMITTED INPATIENT Admitting Provider: [facility] Admitted: [facility]
[2017-10-14] MEDS ORDERED: ALBUTEROL SULFATE 0.083% NEB 2.5 MG/3 ML AMPUL NEB ONE (14:54)
[2017-10-14 14:55] LABS: ABSOLUTE LYMPHOCYTES (AUTO) 0.9 10^3/uL (0.5-4.7); ABSOLUTE MONOCYTES (AUTO) 0.5 10^3/uL (0.1-1.4); ABSOLUTE NEUT (AUTO) 5.4 10^3/uL (1.7-8.2); BASOPHILS % (AUTO) 0.5 % (0-2); EOSINOPHILS % (AUTO) 0.6 % (0-6); HEMATOCRIT 28.9 % (36.0-47.0); HEMOGLOBIN 9.5 g/dL (12.0-15.5); MEAN CORPUSCULAR VOLUME 79 fl (80-97); MONOCYTES % (AUTO) 7.3 % (3-13); PLATELET COUNT 179 10^3/uL (150-450); RED BLOOD COUNT 3.67 10^6/uL (3.72-5.28); RED CELL DISTRIBUTION WIDTH 20.1 % (11.5-14.0); SEGMENTED NEUTROPHILS % (AUTO) 78.6 % (42-78); TOTAL CELLS COUNTED % (AUTO) 100 %; WHITE BLOOD COUNT 6.9 10^3/uL (4.0-10.5)
[2017-10-14] MEDS ORDERED: METHYLPREDNISOLONE INJ 125 MG/2 ML SDV IV ONE (14:55)
[2017-10-14 15:17] LABS: ALANINE AMINOTRANSFERASE 24 U/L (9-52); ALBUMIN 4.1 g/dL (3.5-5.0); ALKALINE PHOSPHATASE 89 U/L (38-126); ANION GAP 16 (5-19); ASPARTATE AMINO TRANSFERASE 32 U/L (14-36); BILIRUBIN,DIRECT 0.3 mg/dL (0.0-0.4); BILIRUBIN,TOTAL 0.4 mg/dL (0.2-1.3); BLOOD UREA NITROGEN 21 mg/dL (7-20); CALCIUM 8.4 mg/dL (8.4-10.2); CARBON DIOXIDE 23 mmol/L (22-30); CHLORIDE 101 mmol/L (98-107); GLUCOSE 124 mg/dL (75-110); POTASSIUM 4.1 mmol/L (3.6-5.0); SODIUM 140.1 mmol/L (137-145); TOTAL PROTEIN 7.3 g/dL (6.3-8.2)
--- NOTE | 2017-10-14 15:29 | RADIOLOGY REPORT (SQ) ---
EXAM DESCRIPTION: CHEST SINGLE VIEW COMPLETED DATE/TIME: 10/14/2017 3:04 pm REASON FOR STUDY: shortness of breath COMPARISON: 04/18/2017 EXAM PARAMETERS: NUMBER OF VIEWS: One view. TECHNIQUE: Single frontal radiographic view of the chest acquired. RADIATION DOSE: NA LIMITATIONS: None. FINDINGS: LUNGS AND PLEURA: No opacities, masses or pneumothorax. No pleural effusion. MEDIASTINUM AND HILAR STRUCTURES: No masses. Contour normal. HEART AND VASCULAR STRUCTURES: Cardiomegaly. No pulmonary edema. BONES: No acute findings. HARDWARE: None in the chest. OTHER: No other significant finding. IMPRESSION: Cardiomegaly without CHF. TECHNICAL DOCUMENTATION: JOB ID: [id number] [employer]- All Rights Reserved Reading location - IP/workstation name: [email or web address]
[2017-10-14 15:38] LABS: NT PRO BNP 38 pg/mL (5-900)
[2017-10-14] MEDS ORDERED: AZITHROMYCIN INJ 500 MG VIAL IV ONE (15:40)
[2017-10-14] MEDS ORDERED: CEFTRIAXONE 1 GM/D5W RTU 1 GM/50 ML RTUPB IV ONE (15:40)
[2017-10-14 15:41] LABS: CREATINE KINASE MB < 0.22 ng/mL (<4.55); TROPONIN I < 0.012 ng/mL
[2017-10-14 15:58] LABS: ARTERIAL BLOOD BASE EXCESS -0.6 mmol/L; ARTERIAL BLOOD H2CO3 1.13 mmol/L (1.05-1.35); ARTERIAL BLOOD HCO3 23.6 mmol/L (20-26); ARTERIAL BLOOD PCO2 37.5 mmHg (35-45); ARTERIAL BLOOD PH 7.42 (7.35-7.45); ARTERIAL BLOOD PO2 106.4 mmHg (80-100); ARTERIAL BLOOD TOTAL CO2 24.7 mmol/L (21-25)
[2017-10-14 16:00] LABS: ARTERIAL BLOOD FIO2 6L
--- NOTE | 2017-10-14 17:14 | RADIOLOGY REPORT (SQ) ---
EXAM DESCRIPTION: CTA CHEST COMPLETED DATE/TIME: 10/14/2017 4:58 pm REASON FOR STUDY: sob COMPARISON: 03/12/2016 TECHNIQUE: CT scan of the chest performed using helical scanning technique with dynamic intravenous contrast injection. Images reviewed with lung, soft tissue and bone windows. Reconstructed coronal and sagittal MPR images reviewed. Additional 3 dimensional post-processing performed to develop Maximal Intensity Projection images (ND P). All images stored on PACS. All CT scanners at this facility use dose modulation, iterative reconstruction, and/or weight based d osing when appropriate to reduce radiation dose to as low as reasonably achievable (ALARA). [facility]: Dose Right [facility]: CareDose [facility]: Dose Right [facility]: Teradose 4D [facility]: [email or web address] CONTRAST TYPE AND DOSE: contrast/concentration: Isovue 350.00 mg/ml; Total Contrast Delivered: 82.0 ml; Total Saline Delivered: 74.0 ml Contrast bolus optimized for the pulmonary arteries. Not diagnostic for the aorta. RENAL FUNCTION: BUN 21 creatinine 0.83 RADIATION DOSE: CT Rad equipment meets quality standard of care and radiation dose reduction techniq ues were employed. CTDIvol: 33.1 - 34.7 mGy. DLP: 1267 mGy-cm. . LIMITATIONS: None. FINDINGS: LUNGS AND PLEURA: No masses, infiltrates, or pneumothorax. No pleural effusions or pleura l calcifications. AORTA AND GREAT VESSELS: No aneurysm. Contrast bolus not optimized for the aorta. HEART: No pericardial effusion. Moderate to marked coronary artery calcifications. PULMONARY ARTERIES: No emboli visualized in the main pulmonary arteries or the segmental branches. HILAR AND MEDIASTINAL STRUCTURES: No identified masses or abnormal nodes. HARDWARE: None in the chest. UPPER ABDOMEN: No significant findings. Limited exam. THYROID AND OTHER SOFT TISSUES: No masses. No adenopathy. BONES: No acute or significant finding. 3D MIPS: Confirm above findings. OTHER: No other significant finding. IMPRESSION: NORMAL CTA OF THE CHEST. NO PULMONARY EMBOLI. COMMENT: Quality ID # [id number]: Final reports with documentation of one or more dose reduction techniques (e.g., Automated exposure control, adjustment of the mA and/or kV according to patient size, use of iterative reconstruction technique) TECHNICAL DOCUMENTATION: JOB ID: [id number] [employer]- All Rights Reserved Reading location - IP/workstation name: [email or web address]
[2017-10-14] MEDS ORDERED: CEFTRIAXONE SODIUM 1,000 MG in NORMAL SALINE 50 ML IV ONE (18:00)
[2017-10-14] MEDS ORDERED: PROMETHAZINE HCL 25 MG TABLET PO PRN (18:15)
[2017-10-14] MEDS ORDERED: IPRATROPIUM/ALBUTEROL 0.5-2.5 MG/3 ML AMPUL NEB PRN (18:15)
[2017-10-14] MEDS ORDERED: DEXTROSE 50%-WATER 25 GM/50 ML DISP.SYRIN IV PRN ×2 (18:22)
[2017-10-14] MEDS ORDERED: GLUCAGON,HUMAN RECOMB 1 MG INJ IM PRN (18:22)
[2017-10-14] MEDS ORDERED: DEXTROSE 40% GEL 15 GM TUBE PO PRN ×2 (18:22)
--- NOTE | 2017-10-14 18:34 | PDOC H&P ---
History of Present Illness Admission Date/PCP: 10/14/17 17:55 SOSA VARELA DO History of Present Illness: JOYCELYN HOLLOWAY is a 67 year old female with multiple comorbidities including hypertension, hyperlipidemia, type 2 diabetes mellitus, morbid obesity, obstructive sleep apnea on CPAP, COPD, anxiety disorder and GERD presents with chief complaint of several days history of cough productive of whitish sputum, fever and shortness of breath. Despite using her home breathing treatment her shortness of breath gets worse and her daughter forced her to come to the ER. No palpitation diaphoresis, nausea, vomiting, abdominal pain or diarrhea. She does not have any dizziness or blurring of vision or syncope. Her blood work is unremarkable her ABGs also within normal limits. Patient carries a diagnosis of COPD but she does not have any history of smoking or secondhand smoking. CT scan of the chest is negative for infiltration or pulmonary embolism. ER attending put the patient on BiPAP, Zithromax and Solu-Medrol and patient reports relative improvement. Past Medical History Cardiac Medical History: Reports: Coronary Artery Disease, Hyperlipidema, Hypertension Denies: Myocardial Infarction Pulmonary Medical History: Reports: Asthma, Bronchitis, Chronic Obstructive Pulmonary Disease (COPD) - "very close to having it", secondary to diesel fume exposure, Pneumonia - ABOUT A YEAR AGO, Sleep Apnea Denies: Tuberculosis Neurological Medical History: Denies: Seizures Endocrine Medical History: Reports: Diabetes Mellitus Type 2 GI Medical History: Reports: Diverticulitis, Gastroesophageal Reflux Disease Musculoskeltal Medical History: Reports: Arthritis - LEFT KNEE Psychiatric Medical History: Reports: Depression, Post Traumatic Stress Disorder Hematology: Denies: Anemia Past Surgical History Past Surgical History: Reports: Cardiac Catheterization, Hysterectomy, Orthopedic Surgery - rt knee 05/2012, Tonsillectomy, Tubal Ligation Denies: Pacemaker Social History Smoking Status: Never Smoker - Discharge Frequency of Alcohol Use: None Hx Recreational Drug Use: No Drugs: None Hx Prescription Drug Abuse: No - Advance Directive Resuscitation Status: Full Code Family History Family History: Reviewed & Not Pertinent, CAD, COPD, Other - Mother at age 50 due to [place]. Brother with multiple CABG. Parental Family History Reviewed: Yes Children Family History Reviewed: Yes Sibling(s) Family History Reviewed.: Yes Medication/Allergy Home Medications: Albuterol Sulfate [Ventolin Hfa] 2 puff IH QID 10/14/17 Amlodipine Besylate [Norvasc 5 mg Tablet] 5 mg PO DAILY 10/14/17 Docusate Sodium [Colace 100 mg Capsule] 100 mg PO DAILY 10/14/17 Duloxetine HCl [Cymbalta] 30 mg PO BID 10/14/17 Fluticasone/Vilanterol [Breo Ellipta 200-25 Mcg INH] 1 puff IH DAILY 10/14/17 Gabapentin [Neurontin 300 mg Capsule] 300 mg PO DAILY 10/14/17 Gabapentin [Neurontin 300 mg Capsule] 900 mg PO QHS 10/14/17 Glimepiride [Amaryl] 2 mg PO BID 10/14/17 Levothyroxine Sodium [Synthroid 0.1 mg Tablet] 0.1 mg PO DAILY 10/14/17 Meloxicam [Mobic] 15 mg PO DAILY 10/14/17 Metformin HCl [Metformin HCl ER] 1,000 mg PO BID 10/14/17 Methocarbamol [Robaxin 750 mg Tablet] 750 mg PO Q6HP PRN 10/14/17 Omeprazole 40 mg PO BID 10/14/17 Rosuvastatin Calcium [Crestor 20 mg Tablet] 20 mg PO QHS 10/14/17 Tiotropium Quinter [Spiriva Handihaler 5 Cap/Kit (18 Mcg/Cap)] 1 cap IH DAILY Trazodone HCl [Desyrel 50 mg Tablet] 50 mg PO QHS 10/14/17 Allergies/Adverse Reactions: codeine [Codeine] Allergy (Severe, Verified 10/14/17 14:09) stopped breathing acetaminophen [From Darvocet-N 100] Allergy (Intermediate, Verified 10/14/17 14: 09) Hallucinations latex [Latex] Allergy (Intermediate, Verified 10/14/17 14:09) Hives propoxyphene HCl [From Darvon] Allergy (Intermediate, Verified 10/14/17 14:09) Hallucinations aspirin [Aspirin] Adverse Reaction (Mild, Verified 10/14/17 14:09) n/v Review of Systems Constitutional: PRESENT: as per HPI Eyes: PRESENT: as per HPI Cardiovascular: ABSENT: chest pain, dyspnea on exertion, edema, orthropnea, palpitations Respiratory: PRESENT: as per HPI Neurological: PRESENT: as per HPI Physical Exam Vital Signs: Temp Pulse Resp BP Pulse Ox 99.9 F 33 H 143/59 H 94 08/16/18 14:24 10/14/17 16:01 10/14/17 16:01 10/14/17 16:01 Intake & Output 10/13/17 10/14/17 10/15/17 06:59 06:59 06:59 Intake Total 50 Balance 50 General appearance: PRESENT: well-developed, other - Moderate distress Eye exam: PRESENT: conjunctiva pink Mouth exam: PRESENT: moist Neck exam: ABSENT: carotid bruit, JVD, lymphadenopathy, thyromegaly Respiratory exam: PRESENT: tachypnea, wheezes Cardiovascular exam: PRESENT: tachycardia GI/Abdominal exam: PRESENT: normal bowel sounds, soft. ABSENT: distended, guarding, mass, organolmegaly, rebound, tenderness Extremities exam: PRESENT: full ROM. ABSENT: calf tenderness, clubbing, pedal edema Neurological exam: PRESENT: alert, awake, oriented to time, oriented to situation Results Impressions: Chest X-Ray 10/14/17 14:43 IMPRESSION: Cardiomegaly without CHF. Chest/Abdomen CTA 10/14/17 15:32 IMPRESSION: NORMAL CTA OF THE CHEST. NO PULMONARY EMBOLI. Assessment & Plan - Diagnosis (1) Acute bronchitis Qualifiers: Bronchitis organism: unspecified organism Qualified Code(s): J20.9 - Acute bronchitis, unspecified Is this a current diagnosis for this admission?: Yes Plan: Patient has been started on Zithromax and supplemental oxygen (2) COPD (chronic obstructive pulmonary disease) Qualifiers: Emphysema type: unspecified Is this a current diagnosis for this admission?: Yes Plan: Bronchodilators, supplemental oxygen (3) Hypertension Qualifiers: Hypertension type: essential hypertension Qualified Code(s): I10 - Essential (primary) hypertension Is this a current diagnosis for this admission?: Yes Plan: Continue home medication (4) Morbid obesity Is this a current diagnosis for this admission?: Yes Plan: Lifestyle modification advised (5) Type 2 diabetes mellitus Is this a current diagnosis for this admission?: Yes Plan: Continue home medication and put her on sliding scale
--- NOTE | 2017-10-14 21:14 | EKG REPORT ---
SEVERITY:- ABNORMAL ECG - SINUS TACHYCARDIA NONSPECIFIC T ABNORMALITIES, LATERAL LEADS : Confirmed by: Christiano Hernandez MD 14-Oct-2017 21:14:27
[2017-10-14] MEDS: METHYLPREDNISOLONE INJ 40 MG/1 ML SDV IV SCH (21:27)
[2017-10-14] MEDS: ENOXAPARIN SODIUM INJ 40 MG/0.4 ML DISP.SYRIN SUBCUT SCH (21:27)
[2017-10-14] MEDS: FAMOTIDINE 20 MG TABLET PO SCH (21:27)
[2017-10-15] MEDS: METHYLPREDNISOLONE INJ 40 MG/1 ML SDV IV SCH ×3 (06:13→21:23)
[2017-10-15 07:18] LABS: HEMATOCRIT 28.4 % (36.0-47.0); HEMOGLOBIN 9.4 g/dL (12.0-15.5); MEAN CORPUSCULAR HEMOGLOBIN 26.1 pg (27.0-33.4); MEAN CORPUSCULAR HGB CONC 33.2 g/dL (32.0-36.0); MEAN CORPUSCULAR VOLUME 79 fl (80-97); PLATELET COUNT 203 10^3/uL (150-450); RED BLOOD COUNT 3.61 10^6/uL (3.72-5.28); RED CELL DISTRIBUTION WIDTH 20.4 % (11.5-14.0); WHITE BLOOD COUNT 8.9 10^3/uL (4.0-10.5)
[2017-10-15 07:35] LABS: ANION GAP 14 (5-19); BLOOD UREA NITROGEN 26 mg/dL (7-20); CALCIUM 8.1 mg/dL (8.4-10.2); CARBON DIOXIDE 25 mmol/L (22-30); CHLORIDE 101 mmol/L (98-107); GLUCOSE 181 mg/dL (75-110); POTASSIUM 3.9 mmol/L (3.6-5.0); SODIUM 140.4 mmol/L (137-145)
[2017-10-15] MEDS: TIOTROPIUM BROMIDE DPI 5 CAP/KIT (18 MCG/CAP) IH SCH (09:56)
[2017-10-15] MEDS: ENOXAPARIN SODIUM INJ 40 MG/0.4 ML DISP.SYRIN SUBCUT SCH (09:56)
[2017-10-15] MEDS: FAMOTIDINE 20 MG TABLET PO SCH ×2 (09:56→21:23)
--- NOTE | 2017-10-15 12:04 | PDOC PROGRESS REPORT ---
Subjective Progress Note for:: 10/15/17 Subjective:: This is 67 years old female patient presented with chief complaint of shortness of breath and cough. Patient has underlying obstructive sleep apnea for which she is on CPAP and also she carries the diagnosis of COPD though patient has never been a smoker or history of secondhand smoking. She is being treated for acute bronchitis and questionable COPD exacerbation. This morning patient seen while she is propped up in bed BiPAP in situ. She reports this relatively her shortness of breath is improving. Reason For Visit: ACUTE BRONCHITIS,DSYPNEA Physical Exam Vital Signs: Temp Pulse Resp BP Pulse Ox 97.5 F 66 22 H 120/54 L 96 10/15/17 07:49 10/15/17 10:52 10/15/17 11:00 10/15/17 07:49 10/15/17 11:00 General appearance: PRESENT: mild distress Head exam: PRESENT: atraumatic Mouth exam: PRESENT: moist Neck exam: ABSENT: carotid bruit, JVD, lymphadenopathy, thyromegaly Respiratory exam: PRESENT: wheezes Cardiovascular exam: PRESENT: RRR. ABSENT: diastolic murmur, rubs, systolic murmur GI/Abdominal exam: PRESENT: normal bowel sounds, soft. ABSENT: distended, guarding, mass, organolmegaly, rebound, tenderness Extremities exam: PRESENT: full ROM. ABSENT: calf tenderness, clubbing, pedal edema Neurological exam: PRESENT: alert, awake, oriented to time, oriented to situation Psychiatric exam: PRESENT: normal mood Results Impressions: Chest X-Ray 10/14/17 14:43 IMPRESSION: Cardiomegaly without CHF. Chest/Abdomen CTA 10/14/17 15:32 IMPRESSION: NORMAL CTA OF THE CHEST. NO PULMONARY EMBOLI. Assessment & Plan - Diagnosis (1) Acute bronchitis Qualifiers: Bronchitis organism: unspecified organism Qualified Code(s): J20.9 - Acute bronchitis, unspecified Is this a current diagnosis for this admission?: Yes Plan: Continue current regimen (2) COPD (chronic obstructive pulmonary disease) Qualifiers: Emphysema type: unspecified Is this a current diagnosis for this admission?: Yes Plan: Bronchodilators, supplemental oxygen (3) Hypertension Qualifiers: Hypertension type: essential hypertension Qualified Code(s): I10 - Essential (primary) hypertension Is this a current diagnosis for this admission?: Yes Plan: Continue home medication (4) Morbid obesity Is this a current diagnosis for this admission?: Yes Plan: Lifestyle modification advised (5) Type 2 diabetes mellitus Is this a current diagnosis for this admission?: Yes Plan: Continue home medication and put her on sliding scale
[2017-10-15] MEDS: AZITHROMYCIN 500 MG in DEXTROSE 5%-WATER 250 ML IV SCH (17:22)
[2017-10-15] MEDS: GABAPENTIN 300 MG CAPSULE PO SCH (21:23)
[2017-10-16] MEDS: METHYLPREDNISOLONE INJ 40 MG/1 ML SDV IV SCH ×3 (06:35→22:05)
[2017-10-16] MEDS: INSULIN LISPRO 100 UNIT/ML 3 ML VIAL SUBCUT PRN ×4 (07:43→22:06)
[2017-10-16] MEDS: FAMOTIDINE 20 MG TABLET PO SCH ×2 (09:34→22:05)
[2017-10-16] MEDS ORDERED: METHOCARBAMOL 750 MG TABLET PO PRN (09:34)
[2017-10-16] MEDS: GABAPENTIN 300 MG CAPSULE PO SCH ×2 (09:35→22:06)
[2017-10-16] MEDS: ENOXAPARIN SODIUM INJ 40 MG/0.4 ML DISP.SYRIN SUBCUT SCH (09:35)
[2017-10-16] MEDS: TIOTROPIUM BROMIDE DPI 5 CAP/KIT (18 MCG/CAP) IH SCH (09:35)
[2017-10-16] MEDS ORDERED: (PENDING PHARMACY ID) (Metformin Hcl [Metformin Hcl Er] 1,000 MG) PO SCH (10:00)
[2017-10-16] MEDS ORDERED: (PENDING PHARMACY ID) (Fluticasone/Vilanterol [Breo Ellipta 200-25 Mcg Inh] 1 PUFF) IH SCH (10:00)
[2017-10-16] MEDS: DOCUSATE SODIUM 100 MG CAPSULE PO SCH (11:45)
[2017-10-16] MEDS: LEVOTHYROXINE SODIUM 0.1 MG TABLET PO SCH (11:45)
[2017-10-16] MEDS: LANSOPRAZOLE 30 MG TAB.RAP.DR PO SCH ×2 (11:45→18:03)
[2017-10-16] MEDS: AMLODIPINE BESYLATE 5 MG TABLET PO SCH (11:45)
[2017-10-16] MEDS: MELOXICAM 15 MG TABLET PO SCH (11:46)
[2017-10-16] MEDS: GLIMEPIRIDE 1 MG TABLET PO SCH ×2 (11:46→18:03)
[2017-10-16] MEDS: DULOXETINE HCL 30 MG CAPSULE.DR PO SCH ×2 (11:46→18:05)
[2017-10-16] MEDS: METFORMIN HCL 500 MG TABLET PO SCH ×3 (12:09→22:06)
[2017-10-16] MEDS: AZITHROMYCIN 500 MG in DEXTROSE 5%-WATER 250 ML IV SCH (18:05)
[2017-10-16] MEDS ORDERED: (PENDING PHARMACY ID) (Rosuvastatin Calcium [Crestor 20 Mg Tablet] 20 MG) PO SCH (22:00)
[2017-10-16] MEDS ORDERED: TRAZODONE HCL 50 MG TABLET PO SCH (22:00)
[2017-10-16] MEDS ORDERED: ATORVASTATIN CALCIUM 40 MG TABLET PO SCH (22:00)
[2017-10-17] MEDS: METHYLPREDNISOLONE INJ 40 MG/1 ML SDV IV SCH (05:45)
[2017-10-17] MEDS: LEVOTHYROXINE SODIUM 0.1 MG TABLET PO SCH (05:45)
[2017-10-17] MEDS: LANSOPRAZOLE 30 MG TAB.RAP.DR PO SCH (05:45)
[2017-10-17] MEDS: METFORMIN HCL 500 MG TABLET PO SCH ×2 (08:24→11:06)
[2017-10-17] MEDS: INSULIN LISPRO 100 UNIT/ML 3 ML VIAL SUBCUT PRN ×2 (08:24→11:26)
[2017-10-17 08:43] VITALS: BP 161/88
--- NOTE | 2017-10-17 10:02 | PDOC DISCHARGE SUMMARY ---
General - Admit/Disc Date/PCP Admission Date/Primary Care Provider: 10/15/17 11:14 SOSA VARELA, Discharge Date: 10/17/17 - Discharge Diagnosis (1) Acute bronchitis Is this a current diagnosis for this admission?: Yes (2) COPD (chronic obstructive pulmonary disease) Is this a current diagnosis for this admission?: Yes (3) Hypertension Is this a current diagnosis for this admission?: Yes (4) Morbid obesity Is this a current diagnosis for this admission?: Yes (5) Type 2 diabetes mellitus Is this a current diagnosis for this admission?: Yes - Additional Information Resuscitation Status: Full Code Home Medications: Albuterol Sulfate [Ventolin Hfa] 2 puff IH QID 10/14/17 Amlodipine Besylate [Norvasc 5 mg Tablet] 5 mg PO DAILY 10/14/17 Docusate Sodium [Colace 100 mg Capsule] 100 mg PO DAILY 10/14/17 Duloxetine HCl [Cymbalta] 30 mg PO BID 10/14/17 Fluticasone/Vilanterol [Breo Ellipta 200-25 Mcg INH] 1 puff IH DAILY 10/14/17 Gabapentin [Neurontin 300 mg Capsule] 300 mg PO DAILY 10/14/17 Gabapentin [Neurontin 300 mg Capsule] 900 mg PO QHS 10/14/17 Glimepiride [Amaryl] 2 mg PO BID 10/14/17 Levothyroxine Sodium [Synthroid 0.1 mg Tablet] 0.1 mg PO DAILY 10/14/17 Meloxicam [Mobic] 15 mg PO DAILY 10/14/17 Metformin HCl [Metformin HCl ER] 1,000 mg PO BID 10/14/17 Methocarbamol [Robaxin 750 mg Tablet] 750 mg PO Q6HP PRN 10/14/17 Omeprazole 40 mg PO BID 10/14/17 Rosuvastatin Calcium [Crestor 20 mg Tablet] 20 mg PO QHS 10/14/17 Tiotropium Miles [Spiriva Handihaler 5 Cap/Kit (18 Mcg/Cap)] 1 cap IH DAILY Trazodone HCl [Desyrel 50 mg Tablet] 50 mg PO QHS 10/14/17 History of Present Illness History of Present Illness: JOYCELYN HOLLOWAY is a 67 year old female with multiple comorbidities including hypertension, hyperlipidemia, type 2 diabetes mellitus, morbid obesity, obstructive sleep apnea on CPAP, COPD, anxiety disorder and GERD presents with chief complaint of several days history of cough productive of whitish sputum, fever and shortness of breath. Despite using her home breathing treatment her shortness of breath gets worse and her daughter forced her to come to the ER. No palpitation diaphoresis, nausea, vomiting, abdominal pain or diarrhea. She does not have any dizziness or blurring of vision or syncope. Her blood work is unremarkable her ABGs also within normal limits. Patient carries a diagnosis of COPD but she does not have any history of smoking or secondhand smoking. CT scan of the chest is negative for infiltration or pulmonary embolism. ER attending put the patient on BiPAP, Zithromax and Solu-Medrol and patient reports relative improvement. Hospital Course Hospital Course: This is 67 years old female patient presented with chief complaint of shortness of breath and cough. Patient has underlying obstructive sleep apnea for which she is on CPAP and also she carries the diagnosis of COPD though patient has never been a smoker but has history of secondhand smoking. She is being treated for acute bronchitis and questionable COPD exacerbation. This morning patient seen while she is propped up and breathing room air. She reports her shortness of breath has subsided and she states she is ready to go home. Patient counseled and encouraged to do lifestyle modification in the form of his diet regular exercise and weight loss. I will continue all her home medication and I will prescribe prednisone 40 mg p.o. daily for 5 days and Zithromax for 4 days. Physical Exam Vital Signs: Temp Pulse Resp BP Pulse Ox 97.9 F 71 20 161/88 H 93 10/17/17 08:09 10/17/17 08:09 10/17/17 08:09 10/17/17 08:09 10/17/17 08:09 Intake & Output 10/16/17 10/17/17 10/18/17 06:59 06:59 06:59 Intake Total 1744 1648 Balance 1744 1648 Weight 111.9 kg 112 kg General appearance: PRESENT: no acute distress Eye exam: PRESENT: conjunctiva pink Mouth exam: PRESENT: moist Respiratory exam: PRESENT: clear to auscultation vicky. ABSENT: rales, rhonchi, wheezes Neurological exam: PRESENT: alert, awake, oriented to time, oriented to situation Psychiatric exam: PRESENT: normal mood Results Impressions: Chest X-Ray 10/14/17 14:43 IMPRESSION: Cardiomegaly without CHF. Chest/Abdomen CTA 10/14/17 15:32 IMPRESSION: NORMAL CTA OF THE CHEST. NO PULMONARY EMBOLI. Qualifiers - * PATIENT BEING DISCHARGED WITH ANY OF THE FOLLOWING DIAGNOSIS: No
[2017-10-17] MEDS: AMLODIPINE BESYLATE 5 MG TABLET PO SCH (11:01)
[2017-10-17] MEDS: FAMOTIDINE 20 MG TABLET PO SCH (11:02)
[2017-10-17] MEDS: DOCUSATE SODIUM 100 MG CAPSULE PO SCH (11:02)
[2017-10-17] MEDS: ENOXAPARIN SODIUM INJ 40 MG/0.4 ML DISP.SYRIN SUBCUT SCH (11:02)
[2017-10-17] MEDS: GLIMEPIRIDE 1 MG TABLET PO SCH (11:02)
[2017-10-17] MEDS: GABAPENTIN 300 MG CAPSULE PO SCH (11:02)
[2017-10-17] MEDS: DULOXETINE HCL 30 MG CAPSULE.DR PO SCH (11:02)
[2017-10-17] MEDS: MELOXICAM 15 MG TABLET PO SCH (11:03)
[2017-10-17] MEDS: TIOTROPIUM BROMIDE DPI 5 CAP/KIT (18 MCG/CAP) IH SCH (11:06)
== END 2017-10-17 12:18 | disposition home or self-care (01) | DRG 202 ==
LOC: ER 14:02 → EH 17:55 → INTOOBSV 17:55 → 3S 19:30 → OBSVTOIN 10-15 11:14
PROVIDERS: ADMIT Internal Medicine; ATTEND Internal Medicine
PROC: 5A09457 Assistance with Respiratory Ventilation, 24-96 Consecutive Hours, Continuous Positive Airway Pressure (ICD-10-PCS; principal; 2017-10-14)
PROC: 3E0F73Z Introduction of Anti-inflammatory into Respiratory Tract, Via Natural or Artificial Opening (ICD-10-PCS; 2017-10-15)
DX: J20.9 Acute bronchitis, unspecified (principal); J44.0 Chronic obstructive pulmonary disease with (acute) lower respiratory infection; Z68.42 Body mass index [BMI] 45.0-49.9, adult; I10 Essential (primary) hypertension; E66.01 Morbid (severe) obesity due to excess calories; E11.9 Type 2 diabetes mellitus without complications; E78.00 Pure hypercholesterolemia, unspecified; G47.33 Obstructive sleep apnea (adult) (pediatric); F41.9 Anxiety disorder, unspecified; K21.9 Gastro-esophageal reflux disease without esophagitis; F17.210 Nicotine dependence, cigarettes, uncomplicated; I25.10 Atherosclerotic heart disease of native coronary artery without angina pectoris; M17.12 Unilateral primary osteoarthritis, left knee; F32.9 Major depressive disorder, single episode, unspecified; F43.10 Post-traumatic stress disorder, unspecified; Z99.81 Dependence on supplemental oxygen; Z88.6 Allergy status to analgesic agent; Z91.040 Latex allergy status; Z90.710 Acquired absence of both cervix and uterus; Z79.899 Other long term (current) drug therapy; Z82.49 Family history of ischemic heart disease and other diseases of the circulatory system; Z83.6 Family history of other diseases of the respiratory system
CPT/HCPCS: 36415; 36600; 71045; 71275; 80048; 80053; 82550; 82553; 82803; 82962; 83036; 83605; 83880; 84484; 85025; 85027; 87040; 93005; 93010; 94640; 94660; 96365; 96375; 99291; G0378; J0456; J0696; J1650; J1815; J2920; J2930; J3490; J7060; J7620

== ENCOUNTER 2017-12-03 15:36 | Emergency (ER) | payer MEDICARE, MEDICAID ==
[2017-12-03 16:57] LABS: APPEARANCE,URINE SLIGHTLY-CLOUDY; BILIRUBIN,URINE NEGATIVE (NEGATIVE); COLOR,URINE STRAW; GLUCOSE, URINE NEGATIVE (NEGATIVE); KETONES,URINE NEGATIVE (NEGATIVE); LEUKOCYTE ESTERASE,URINE NEGATIVE (NEGATIVE); NITRITE,URINE NEGATIVE (NEGATIVE); PROTEIN,URINE NEGATIVE (NEGATIVE); URINE SPECIFIC GRAVITY 1.012; UROBILINOGEN,URINE NEGATIVE mg/dL (<2.0)
--- NOTE | 2017-12-03 16:57 | ER Document Report ---
ED Medical Screen (RME) - General Chief Complaint: Rectal Bleeding Stated Complaint: RECTAL BLEEDING Time Seen by Provider: 12/03/17 16:52 Notes: 67-year-old female patient complains of bright red blood per rectum with and without BMs for the past 2 days. She has had this before but never this bad. She does have a history of diverticulitis in the past. I have greeted and performed a rapid initial assessment of this patient. A comprehensive ED assessment and evaluation of the patient, analysis of test results and completion of the medical decision making process will be conducted by additional ED providers. TRAVEL OUTSIDE OF THE [place] IN LAST 30 DAYS: No - Related Data Allergies/Adverse Reactions: codeine [Codeine] Allergy (Severe, Verified 10/14/17 14:09) stopped breathing acetaminophen [From Darvocet-N 100] Allergy (Intermediate, Verified 10/14/17 14: 09) Hallucinations latex [Latex] Allergy (Intermediate, Verified 10/14/17 14:09) Hives propoxyphene HCl [From Darvon] Allergy (Intermediate, Verified 10/14/17 14:09) Hallucinations aspirin [Aspirin] Adverse Reaction (Mild, Verified 10/14/17 14:09) n/v Past Medical History - Social History Family history: Reviewed & Not Pertinent - Past Medical History Cardiac Medical History: Reports: Hx Coronary Artery Disease, Hx Hypercholesterolemia, Hx Hypertension Denies: Hx Heart Attack Pulmonary Medical History: Reports: Hx Asthma, Hx Bronchitis, 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 Denies: Hx Peritoneal Dialysis GI Medical History: Reports: Hx Diverticulitis, Hx Gastroesophageal Reflux Disease Musculoskeltal Medical History: Reports Hx Arthritis - LEFT KNEE Psychiatric Medical History: Reports: Hx Depression, Hx Post Traumatic Stress Disorder Past Surgical History: Reports: Hx Abdominal Surgery - resection, Hx Cardiac Catheterization, Hx Hysterectomy, Hx Orthopedic Surgery - rt knee 05/2012, Hx Tonsillectomy, Hx Tubal Ligation. Denies: Hx Pacemaker - Immunizations Immunizations up to date: Yes Hx Diphtheria, Pertussis, Tetanus Vaccination: Yes History of Influenza Vaccine for 11/2016 - 04/2017 Season: Refused Physical Exam - Vital signs Vitals: Temp Pulse BP Pulse Ox 99.5 F 87 176/72 H 92 12/03/17 15:52 12/03/17 15:52 12/03/17 15:52 12/03/17 15:52 Course - Vital Signs Vital signs: Temp Pulse Resp BP Pulse Ox 99.5 F 87 176/72 H 92 12/03/17 15:52 12/03/17 15:52 12/03/17 15:52 12/03/17 15:52 Doctor's Discharge - Discharge Referrals: SOSA VARELA DO [Primary Care Provider] - Follow up as needed
[2017-12-03 18:14] LABS: ABSOLUTE EOSINOPHILS # (AUTO) 0.2 10^3/uL (0.0-0.6); ABSOLUTE LYMPHOCYTES (AUTO) 1.6 10^3/uL (0.5-4.7); ABSOLUTE MONOCYTES (AUTO) 0.7 10^3/uL (0.1-1.4); BASOPHILS % (AUTO) 0.7 % (0-2); EOSINOPHILS % (AUTO) 2.4 % (0-6); HEMATOCRIT 28.2 % (36.0-47.0); HEMOGLOBIN 9.4 g/dL (12.0-15.5); LYMPHOCYTES % (AUTO) 24.4 % (13-45); MEAN CORPUSCULAR HEMOGLOBIN 26.9 pg (27.0-33.4); MEAN CORPUSCULAR HGB CONC 33.2 g/dL (32.0-36.0); MEAN CORPUSCULAR VOLUME 81 fl (80-97); MONOCYTES % (AUTO) 10.3 % (3-13); PLATELET COUNT 203 10^3/uL (150-450); RED BLOOD COUNT 3.48 10^6/uL (3.72-5.28); RED CELL DISTRIBUTION WIDTH 21.1 % (11.5-14.0); SEGMENTED NEUTROPHILS % (AUTO) 62.2 % (42-78); TOTAL CELLS COUNTED % (AUTO) 100 %; WHITE BLOOD COUNT 6.5 10^3/uL (4.0-10.5)
[2017-12-03 18:18] LABS: INTERNATIONAL RATION (INR) 0.96; PROTHROMBIN TIME 13.3 SEC (11.4-15.4)
[2017-12-03 18:55] LABS: ALANINE AMINOTRANSFERASE 32 U/L (9-52); ALKALINE PHOSPHATASE 88 U/L (38-126); ANION GAP 10 (5-19); ASPARTATE AMINO TRANSFERASE 34 U/L (14-36); BILIRUBIN,DIRECT 0.4 mg/dL (0.0-0.4); BILIRUBIN,TOTAL 0.4 mg/dL (0.2-1.3); BLOOD UREA NITROGEN 11 mg/dL (7-20); CALCIUM 9.7 mg/dL (8.4-10.2); CARBON DIOXIDE 25 mmol/L (22-30); CHLORIDE 105 mmol/L (98-107); GLUCOSE 100 mg/dL (75-110); POTASSIUM 3.8 mmol/L (3.6-5.0); SODIUM 140.1 mmol/L (137-145); TOTAL PROTEIN 6.8 g/dL (6.3-8.2)
[2017-12-03] MEDS ORDERED: CEPHALEXIN 500 MG CAPSULE PO ONE (19:46)
[2017-12-03] MEDS ORDERED: METRONIDAZOLE 500 MG TABLET PO ONE (19:46)
--- NOTE | 2017-12-03 19:51 | ER Document Report ---
ED General - General Chief Complaint: Rectal Bleeding Stated Complaint: RECTAL BLEEDING Time Seen by Provider: 12/03/17 16:52 Notes: Patient is a 67-year-old female with a past medical history of morbid obesity, hypertension, hyperlipidemia, who presents with 2 days of left lower quadrant abdominal pain as well as intermittent rectal bleeding. She describes pain in her lower abdomen as being an aching, constant, stabbing pain. Nothing improves or worsens that pain. She denies fever, vomiting or constitutional symptoms. She has had mostly firm stools with some associated bleeding. She was encouraged to come to the emergency department by a nurse at the [place] [facility] is [facility] staying given her ongoing rectal bleeding. She does not take any form of medical regulation. She has not contacted her primary care doctor regarding today's concerns. She notes a history of similar symptoms in the past with diverticular bleeds. TRAVEL OUTSIDE OF THE [place] IN LAST 30 DAYS: No - Related Data Allergies/Adverse Reactions: codeine [Codeine] Allergy (Severe, Verified 10/14/17 14:09) stopped breathing acetaminophen [From Darvocet-N 100] Allergy (Intermediate, Verified 10/14/17 14: 09) Hallucinations latex [Latex] Allergy (Intermediate, Verified 10/14/17 14:09) Hives propoxyphene HCl [From Darvon] Allergy (Intermediate, Verified 10/14/17 14:09) Hallucinations aspirin [Aspirin] Adverse Reaction (Mild, Verified 10/14/17 14:09) n/v Past Medical History - General Information source: Patient - Social History Smoking Status: Never Smoker Chew tobacco use (# tins/day): No Frequency of alcohol use: None Drug Abuse: None Lives with: Homeless Family History: Reviewed & Not Pertinent, CAD, COPD, Other - Mother at age 50 due to PA. Brother with multiple CABG. Patient has suicidal ideation: No Patient has homicidal ideation: No - Past Medical History Cardiac Medical History: Reports: Hx Coronary Artery Disease, Hx Hypercholesterolemia, Hx Hypertension Denies: Hx Heart Attack Pulmonary Medical History: Reports: Hx Asthma, Hx Bronchitis, 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 Denies: Hx Peritoneal Dialysis GI Medical History: Reports: Hx Diverticulitis, Hx Gastroesophageal Reflux Disease Musculoskeletal Medical History: Reports Hx Arthritis - LEFT KNEE Psychiatric Medical History: Reports: Hx Depression, Hx Post Traumatic Stress Disorder Past Surgical History: Reports: Hx Abdominal Surgery - resection, Hx Cardiac Catheterization, Hx Hysterectomy, Hx Orthopedic Surgery - rt knee 05/2012, Hx Tonsillectomy, Hx Tubal Ligation. Denies: Hx Pacemaker - Immunizations Immunizations up to date: Yes Hx Diphtheria, Pertussis, Tetanus Vaccination: Yes Hx Pneumococcal Vaccination: 07/31/11 Review of Systems - Review of Systems Notes: Constitutional: Negative for fever. HENT: Negative for sore throat. Eyes: Negative for visual changes. Cardiovascular: Negative for chest pain. Respiratory: Negative for shortness of breath. Gastrointestinal: Positive for rectal bleeding and lower abdominal pain Genitourinary: Negative for dysuria. Musculoskeletal: Negative for back pain. Skin: Negative for rash. Neurological: Negative for headaches, weakness or numbness. 10 point ROS negative except as marked above and in HPI. Physical Exam - Vital signs Vitals: Temp Pulse BP Pulse Ox 99.5 F 87 176/72 H 92 12/03/17 15:52 12/03/17 15:52 12/03/17 15:52 12/03/17 15:52 Interpretation: Hypertensive Notes: PHYSICAL EXAMINATION: GENERAL: Well-appearing, well-nourished and in no acute distress. HEAD: Atraumatic, normocephalic. EYES: Pupils equal round and reactive to light, extraocular movements intact, sclera anicteric, conjunctiva are normal. ENT: nares patent, oropharynx clear without exudates. Moist mucous membranes. NECK: Normal range of motion, supple without lymphadenopathy LUNGS: Breath sounds clear to auscultation bilaterally and equal. No wheezes rales or rhonchi. HEART: Regular rate and rhythm without murmurs ABDOMEN: Soft, focal tenderness to left lower quadrant but no other localized areas of tenderness, normoactive bowel sounds. No guarding, no rebound. No masses appreciated. Rectal: No gross blood, no appreciable external hemorrhoids. Brown stool EXTREMITIES: Normal range of motion, no pitting or edema. No cyanosis. NEUROLOGICAL: No focal neurological deficits. Moves all extremities spontaneously and on command. PSYCH: Normal mood, normal affect. SKIN: Warm, Dry, normal turgor, no rashes or lesions noted. Course - Re-evaluation Re-evalutation: 12/03/17 19:48 Presentation of an overall well-appearing morbidly obese 67-year-old female who presents with 2 days of left lower quadrant abdominal pain and intermittent rectal bleeding. Her hemoglobin is 9.4 today completely unchanged from 10/15/17 when it was likewise 9.4. Rectal exam without any gross blood suspect likely hemorrhoidal bleeding as opposed to a diverticular bleed. On abdominal examination the patient does have some focal tenderness to the left lower quadrant. She has a history of diverticulitis in the past and it appears that this is likely the same today. No fever or leukocytosis. CT abdomen pelvis without evidence of perforation or abscess. The patient has been started on cephalexin as well as metronidazole. I recommended stool softeners for treatment of what appears to be likely hemorrhoidal bleeding. She is not on any form of anti-coagulation. I have recommended close outpatient follow-up within the next 24-48 hours. I have strongly emphasized that she continues to have rectal bleeding she needs to return to the emergency permit for recheck of her hemoglobin and ensure that she does not need emergent colonoscopy. At this time will discharge with return precautions and follow-up recommendations. Verbal discharge instructions given a the bedside and opportunity for questions given. Medication warnings reviewed. Patient is in agreement with this plan and has verbalized understanding of return precautions and the need for primary care follow-up in the next 24-72 hours. - Vital Signs Vital signs: Temp Pulse Resp BP Pulse Ox 99.5 F 87 176/72 H 92 12/03/17 15:52 12/03/17 15:52 12/03/17 15:52 12/03/17 15:52 - Laboratory Result Diagrams: 12/03/17 18:03 12/03/17 18:03 Laboratory results interpreted by me: 12/03/17 12/03/17 16:16 18:03 RBC 3.48 L Hgb 9.4 L Hct 28.2 L MCH 26.9 L RDW 21.1 H Urine Blood LARGE H - Diagnostic Test Radiology reviewed: Reports reviewed Discharge - Discharge Clinical Impression: Rectal bleeding, Diverticulitis, Chronic iron deficiency anemia Condition: Good Disposition: HOME, SELF-CARE Additional Instructions: You were seen today for focal pain in your left lower quadrant. Your labs, exam , and imaging suggest a diagnosis of diverticulitis. This is an inflammation of a part of your colon. You are being started on antibiotics to treat this infection and inflammation. Please take all of them as directed and complete them even if your symptoms resolve. Please follow-up with your primary care physician within the next 48 hours. Return to the emergency department immediately if you develop worsening pain, persistent vomiting, have more frequent or more prominent bloody stools, develop a fever of greater than 101F , or have any other symptoms that are concerning to you. You do also chronic iron deficiency anemia. I would recommend that your primary doctor refer you to hematology for consideration of iron infusions. Prescriptions: RX: Cephalexin Monohydrate [Keflex 500 mg Capsule] 500 mg PO Q6H 10 Days capsule Metronidazole [Flagyl 500 mg Tablet] 500 mg PO Q6H #40 tablet Referrals: SOSA VARELA DO [Primary Care Provider] - Follow up tomorrow
--- NOTE | 2017-12-03 19:52 | RADIOLOGY REPORT (SQ) ---
EXAM DESCRIPTION: CT ABD/PELVIS NO ORAL OR IV COMPLETED DATE/TIME: 12/03/2017 7:37 pm REASON FOR STUDY: llq pain COMPARISON: CT abdomen pelvis 11/08/2014, 11/27/2016 TECHNIQUE: CT scan of the abdomen and pelvis performed without intravenous or oral contrast. Images reviewed with lung, soft tissue, and bone windows. Reconstructed coronal and sagittal MPR images revi ewed. All images stored on PACS. All CT scanners at this facility use dose modulation, iterative reconstruction, and/or weight based d osing when appropriate to reduce radiation dose to as low as reasonably achievable (ALARA). [facility]: Dose Right [facility]: CareDose [facility]: Dose Right [facility]: Teradose 4D [facility]: Smart [employer] RADIATION DOSE: CT Rad equipment meets quality standard of care and radiation dose reduction techniq ues were employed. CTDIvol: 20.6 mGy. DLP: 1111 mGy-cm.mGy. LIMITATIONS: None. FINDINGS: On axial images 51 through 63, and coronal images 41 through 53, there is mild inflammator y change in the pericolic fat along the descending colon. Mild changes of acute diverticulitis could be present. Abdominal panniculus is increased in density with skin thickening and stranding in the subcutaneous f at worrisome for cellulitis. No abscess identified. LOWER CHEST: No significant findings. No nodules or infiltrates. NON-CONTRASTED LIVER, SPLEEN, ADRENALS: Evaluation limited by lack of IV contrast. No identified sign ificant masses. PANCREAS: No masses. No peripancreatic inflammatory changes. GALLBLADDER: No identified stones by CT criteria. No inflammatory changes to suggest cholecystitis. RIGHT KIDNEY AND URETER: No suspicious masses. Assessment limited by lack of IV contrast. No signif icant calcifications. No hydronephrosis or hydroureter. LEFT KIDNEY AND URETER: No suspicious masses. Assessment limited by lack of IV contrast. No signifi cant calcifications. No hydronephrosis or hydroureter. AORTA AND RETROPERITONEUM: No aneurysm. No retroperitoneal masses or adenopathy. BOWEL AND PERITONEAL CAVITY: No CT evidence of bowel obstruction or free intraperitoneal air or fluid . APPENDIX: Normal. PELVIS, BLADDER, AND ABDOMINAL WALL:No abnormal masses. No free fluid. Bladder normal. Post hysterec cassidy. Left ovary identified, normal size. BONES: No significant findings. OTHER: No other significant finding. IMPRESSION: Mild inflammatory change in the pericolic fat along the descending colon worrisome for d iverticulitis Inflammation with skin thickening and increased density of subcutaneous fat over the abdominal pannic ulus from mild cellulitis COMMENT: Quality ID # [id number]: Final reports with documentation of one or more dose reduction techniques (e.g., Automated exposure control, adjustment of the mA and/or kV according to patient size, use of iterative reconstruction technique) TECHNICAL DOCUMENTATION: JOB ID: [id number] [employer]- All Rights Reserved Reading location - IP/workstation name: [email or web address]
[2017-12-03 22:03] VITALS: BP 154/80
== END 2017-12-03 21:20 | disposition home or self-care (01) ==
LOC: ER 15:36
DX: K62.5 Hemorrhage of anus and rectum (principal); K57.92 Diverticulitis of intestine, part unspecified, without perforation or abscess without bleeding; D50.9 Iron deficiency anemia, unspecified; R10.32 Left lower quadrant pain; I10 Essential (primary) hypertension; I25.10 Atherosclerotic heart disease of native coronary artery without angina pectoris; J45.909 Unspecified asthma, uncomplicated; E11.9 Type 2 diabetes mellitus without complications; E66.01 Morbid (severe) obesity due to excess calories; Z68.41 Body mass index [BMI] 40.0-44.9, adult; Z88.5 Allergy status to narcotic agent; Z88.6 Allergy status to analgesic agent; Z91.040 Latex allergy status
CPT/HCPCS: 99284; 36415; 85025; 85610; 80053; 81001; 74176; A9270 ×2

== ENCOUNTER 2018-04-04 12:51 | Inpatient (IN) | payer MEDICARE, MEDICAID ==
--- NOTE | 2018-04-04 13:58 | ER Document Report ---
ED Medical Screen (RME) - General Chief Complaint: Diarrhea Stated Complaint: WEAKNESS, DIARRHEA Time Seen by Provider: 04/04/18 13:46 Primary Care Provider: SOSA VARELA DO [Primary Care Provider] - Follow up as needed Notes: Patient here complaining of lethargy, low oxygen saturations at home, diarrhea for 3 weeks and blood sugar dropping into the 60s. Patient on glimepiride. Patient falling asleep at triage. I have greeted and performed a rapid initial assessment of this patient. A comprehensive ED assessment and evaluation of the patient, analysis of test results and completion of the medical decision making process will be conducted by additional ED providers. TRAVEL OUTSIDE OF THE [place] IN LAST 30 DAYS: No - Related Data Allergies/Adverse Reactions: codeine [Codeine] Allergy (Severe, Verified 04/04/18 12:53) stopped breathing acetaminophen [From Darvocet-N 100] Allergy (Intermediate, Verified 04/04/18 12:53) Hallucinations latex [Latex] Allergy (Intermediate, Verified 04/04/18 12:53) Hives propoxyphene HCl [From Darvon] Allergy (Intermediate, Verified 04/04/18 12:53) Hallucinations aspirin [Aspirin] Adverse Reaction (Mild, Verified 04/04/18 12:53) n/v Past Medical History - Social History Family history: Reviewed & Not Pertinent - Past Medical History Cardiac Medical History: Reports: Hx Coronary Artery Disease, Hx Hypercholesterolemia, Hx Hypertension Denies: Hx Heart Attack Pulmonary Medical History: Reports: Hx Asthma, Hx Bronchitis, 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 Denies: Hx Peritoneal Dialysis GI Medical History: Reports: Hx Diverticulitis, Hx Gastroesophageal Reflux Disease Musculoskeltal Medical History: Reports Hx Arthritis - LEFT KNEE Psychiatric Medical History: Reports: Hx Depression, Hx Post Traumatic Stress Disorder Past Surgical History: Reports: Hx Abdominal Surgery - resection, Hx Cardiac Catheterization, Hx Hysterectomy, Hx Orthopedic Surgery - rt knee 05/2012, Hx To nsillectomy, Hx Tubal Ligation. Denies: Hx Pacemaker - Immunizations Immunizations up to date: Yes Hx Diphtheria, Pertussis, Tetanus Vaccination: Yes History of Influenza Vaccine for 11/2016 - 04/2017 Season: Refused Physical Exam - Vital signs Vitals: Temp Pulse Resp BP Pulse Ox 98.3 F 69 20 134/55 H 96 04/04/18 13:23 04/04/18 13:23 04/04/18 13:23 04/04/18 13:23 04/04/18 13:23 Course - Vital Signs Vital signs: Temp Pulse Resp BP Pulse Ox 98.3 F 69 20 134/55 H 96 04/04/18 13:23 04/04/18 13:23 04/04/18 13:23 04/04/18 13:23 04/04/18 13:23 Doctor's Discharge - Discharge Referrals: SOSA VARELA DO [Primary Care Provider] - Follow up as needed
[2018-04-04] MEDS ORDERED: NORMAL SALINE 1000 ML 1,000 ML IV ONE (15:30)
--- NOTE | 2018-04-04 15:30 | RADIOLOGY REPORT (SQ) ---
EXAM DESCRIPTION: CHEST 2 VIEWS COMPLETED DATE/TIME: 04/04/2018 3:11 pm REASON FOR STUDY: sob COMPARISON: None. EXAM PARAMETERS: NUMBER OF VIEWS: two views TECHNIQUE: Digital Frontal and Lateral radiographic views of the chest acquired. RADIATION DOSE: NA LIMITATIONS: none FINDINGS: LUNGS AND PLEURA: No opacities, masses or pneumothorax. No pleural effusion. MEDIASTINUM AND HILAR STRUCTURES: No masses or contour abnormalities. HEART AND VASCULAR STRUCTURES: Heart normal size. No evidence for failure. BONES: No acute findings. HARDWARE: None in the chest. OTHER: No other significant finding. IMPRESSION: NO ACUTE RADIOGRAPHIC FINDING IN THE CHEST. TECHNICAL DOCUMENTATION: JOB ID: [id number] [employer]- All Rights Reserved Reading location - IP/workstation name: [email or web address]
--- NOTE | 2018-04-04 15:34 | ER Document Report ---
ED General - General Chief Complaint: Diarrhea Stated Complaint: WEAKNESS, DIARRHEA Time Seen by Provider: 04/04/18 13:46 Primary Care Provider: SOSA VARELA DO [Primary Care Provider] - Follow up as needed Mode of Arrival: Ambulatory Information source: Patient Notes: This is a 68-year-old female with a history of COPD, diabetes, hypertension, diverticulitis (partial left colectomy) who presents to the emergency room with weakness, fatigue, watery diarrhea for 3 weeks. Patient denies any blood in the stool. She does report having intermittent abdominal discomfort although she denies any pain at this time. TRAVEL OUTSIDE OF THE [place] IN LAST 30 DAYS: No - Related Data Allergies/Adverse Reactions: codeine [Codeine] Allergy (Severe, Verified 04/04/18 12:53) stopped breathing acetaminophen [From Darvocet-N 100] Allergy (Intermediate, Verified 04/04/18 12:53) Hallucinations latex [Latex] Allergy (Intermediate, Verified 04/04/18 12:53) Hives propoxyphene HCl [From Darvon] Allergy (Intermediate, Verified 04/04/18 12:53) Hallucinations aspirin [Aspirin] Adverse Reaction (Mild, Verified 04/04/18 12:53) n/v Past Medical History - Social History Smoking Status: Never Smoker Frequency of alcohol use: None Drug Abuse: None Family History: Reviewed & Not Pertinent, CAD, COPD, Other - Mother at age 50 due to [address]. Brother with multiple CABG. Patient has suicidal ideation: No Patient has homicidal ideation: No - Past Medical History Cardiac Medical History: Reports: Hx Coronary Artery Disease, Hx Hypercholesterolemia, Hx Hypertension Denies: Hx Heart Attack Pulmonary Medical History: Reports: Hx Asthma, Hx Bronchitis, 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 Denies: Hx Peritoneal Dialysis GI Medical History: Reports: Hx Diverticulitis, Hx Gastroesophageal Reflux Disease Musculoskeletal Medical History: Reports Hx Arthritis - LEFT KNEE Psychiatric Medical History: Reports: Hx Depression, Hx Post Traumatic Stress Disorder Past Surgical History: Reports: Hx Abdominal Surgery - resection, Hx Cardiac Catheterization, Hx Hysterectomy, Hx Orthopedic Surgery - rt knee 05/2012, Hx Tonsillectomy, Hx Tubal Ligation. Denies: Hx Pacemaker - Immunizations Immunizations up to date: Yes Hx Diphtheria, Pertussis, Tetanus Vaccination: Yes Hx Pneumococcal Vaccination: 07/31/11 Physical Exam - Vital signs Vitals: Temp Pulse Resp BP Pulse Ox 98.3 F 69 20 134/55 H 96 04/04/18 13:23 04/04/18 13:23 04/04/18 13:23 04/04/18 13:23 04/04/18 13:23 Notes: Physical exam: GENERAL: 68-year-old female, appears weak and dehydrated, she is oriented x3. HEAD: Atraumatic, normocephalic. EYES: Pupils equal round and reactive to light, extraocular movements intact, sclera anicteric, conjunctiva are normal. ENT: TMs normal, nares patent, oropharynx clear without exudates. dry mucous membranes. NECK: Normal range of motion, supple without obvious mass or JVD. LUNGS: Breath sounds clear to auscultation bilaterally and equal. No wheezes rales or rhonchi. HEART: Regular rate and rhythm without murmurs, rubs or gallops. ABDOMEN: Soft, normoactive bowel sounds. No tenderness to palpation. No guarding, no rebound. No masses appreciated. Rectal: Patient has hemorrhoids. Stool brown, no gross blood, heme negative. EXTREMITIES: Normal range of motion, no pitting or edema. No clubbing or cyanosis. NEUROLOGICAL: Cranial nerves II through XII grossly intact. Normal speech, moving all extremities. PSYCH: Normal mood, normal affect. SKIN: Warm, Dry, normal turgor, no rashes or lesions noted. Course - Vital Signs Vital signs: Temp Pulse Resp BP Pulse Ox 98.3 F 69 25 H 132/58 H 97 04/04/18 13:23 04/04/18 13:23 04/04/18 17:12 04/04/18 17:12 04/04/18 17:12 - Laboratory Result Diagrams: 04/04/18 15:48 04/04/18 15:48 Laboratory results interpreted by me: 04/04/18 04/04/18 04/04/18 14:00 15:36 15:48 Hgb 10.9 L Hct 33.6 L RDW 18.9 H Potassium Chloride Carbon Dioxide BUN Creatinine Est GFR ( Amer) Est GFR (Non-Af Amer) Glucose POC Glucose 149 H AST Urine Glucose (UA) 50 H Ur Leukocyte Esterase SMALL H 04/04/18 15:48 Hgb Hct RDW Potassium 5.2 H Chloride 111 H Carbon Dioxide 20 L BUN 82 H Creatinine 2.06 H Est GFR ( Amer) 29 L Est GFR (Non-Af Amer) 24 L Glucose 147 H POC Glucose AST 41 H Urine Glucose (UA) Ur Leukocyte Esterase - EKG Interpretation by Me Rate: Normal Rhythm: NSR - EKG shows normal sinus rhythm with a ventricular rate of 70, no acute ST-T wave changes Discharge - Discharge Clinical Impression: Acute renal failure, Dehydration, Diarrhea Condition: Stable Disposition: ADMITTED INPATIENT Admitting Provider: Hospitalist - Dr Blackwood Unit Admitted: Telemetry Referrals: SOSA VARELA DO [Primary Care Provider] - Follow up as needed
[2018-04-04 15:57] LABS: ABSOLUTE EOSINOPHILS # (AUTO) 0.2 10^3/uL (0.0-0.6); ABSOLUTE LYMPHOCYTES (AUTO) 2.2 10^3/uL (0.5-4.7); ABSOLUTE MONOCYTES (AUTO) 0.5 10^3/uL (0.1-1.4); ABSOLUTE NEUT (AUTO) 2.6 10^3/uL (1.7-8.2); BASOPHILS % (AUTO) 0.6 % (0-2); HEMATOCRIT 33.6 % (36.0-47.0); HEMOGLOBIN 10.9 g/dL (12.0-15.5); LYMPHOCYTES % (AUTO) 40.3 % (13-45); MEAN CORPUSCULAR HEMOGLOBIN 27.8 pg (27.0-33.4); MEAN CORPUSCULAR HGB CONC 32.6 g/dL (32.0-36.0); MEAN CORPUSCULAR VOLUME 85 fl (80-97); MONOCYTES % (AUTO) 8.5 % (3-13); PLATELET COUNT 171 10^3/uL (150-450); RED BLOOD COUNT 3.94 10^6/uL (3.72-5.28); RED CELL DISTRIBUTION WIDTH 18.9 % (11.5-14.0); SEGMENTED NEUTROPHILS % (AUTO) 46.6 % (42-78); TOTAL CELLS COUNTED % (AUTO) 100 %; WHITE BLOOD COUNT 5.5 10^3/uL (4.0-10.5)
[2018-04-04 16:14] LABS: ALANINE AMINOTRANSFERASE 35 U/L (9-52); ALBUMIN 4.5 g/dL (3.5-5.0); ALKALINE PHOSPHATASE 98 U/L (38-126); ANION GAP 11 (5-19); ASPARTATE AMINO TRANSFERASE 41 U/L (14-36); BILIRUBIN,DIRECT 0.2 mg/dL (0.0-0.4); BILIRUBIN,TOTAL 0.2 mg/dL (0.2-1.3); BLOOD UREA NITROGEN 82 mg/dL (7-20); CALCIUM 9.4 mg/dL (8.4-10.2); CARBON DIOXIDE 20 mmol/L (22-30); CHLORIDE 111 mmol/L (98-107); CREATINE KINASE 34 U/L (30-135); GLUCOSE 147 mg/dL (75-110); POTASSIUM 5.2 mmol/L (3.6-5.0); SODIUM 142.3 mmol/L (137-145); TOTAL PROTEIN 7.6 g/dL (6.3-8.2)
[2018-04-04 16:26] LABS: NT PRO BNP 15 pg/mL (5-900)
[2018-04-04 16:27] LABS: CREATINE KINASE MB < 0.22 ng/mL (<4.55); TROPONIN I < 0.012 ng/mL
[2018-04-04 16:48] LABS: APPEARANCE,URINE CLOUDY; BILIRUBIN,URINE NEGATIVE (NEGATIVE); COLOR,URINE YELLOW; GLUCOSE, URINE 50 mg/dL (NEGATIVE); KETONES,URINE NEGATIVE (NEGATIVE); LEUKOCYTE ESTERASE,URINE SMALL (NEGATIVE); NITRITE,URINE NEGATIVE (NEGATIVE); PROTEIN,URINE NEGATIVE (NEGATIVE); URINE SPECIFIC GRAVITY 1.018; UROBILINOGEN,URINE NEGATIVE mg/dL (<2.0)
[2018-04-04] MEDS ORDERED: CALCIUM GLUCONATE 1000 MG/10 ML INJ IV ONE (18:04)
[2018-04-04] MEDS ORDERED: ONDANSETRON HCL INJ/PF 4 MG/2 ML SDV IV PRN (18:04)
[2018-04-04] MEDS ORDERED: GLUCAGON,HUMAN RECOMB 1 MG INJ IM PRN ×2 (18:09→18:10)
[2018-04-04] MEDS ORDERED: DEXTROSE 40% GEL 15 GM TUBE PO PRN ×4 (18:09→18:10)
[2018-04-04] MEDS ORDERED: DEXTROSE 50%-WATER 25 GM/50 ML DISP.SYRIN IV PRN ×4 (18:09→18:10)
--- NOTE | 2018-04-04 18:22 | EKG REPORT ---
SEVERITY:- NORMAL ECG - SINUS RHYTHM : Confirmed by: Bella Sanchez 04-Apr-2018 18:22:17
[2018-04-04] MEDS: NORMAL SALINE 1000 ML 1,000 ML IV PRN (18:45)
[2018-04-04 18:48] LABS: FREE T3 2.69 pg/mL (2.77-5.27); FREE T4 (FREE THYROXINE) 0.88 ng/dL (0.78-2.19)
[2018-04-04 19:01] LABS: THYROID STIMULATING HORMONE 1.61 uIU/mL (0.47-4.68)
[2018-04-04] MEDS: IPRATROPIUM/ALBUTEROL 0.5-2.5 MG/3 ML AMPUL NEB SCH (19:32)
[2018-04-04] MEDS ORDERED: (PENDING PHARMACY ID) (Rosuvastatin Calcium [Crestor 20 Mg Tablet] 20 MG) PO SCH (22:00)
[2018-04-04] MEDS: TRAZODONE HCL 50 MG TABLET PO SCH (22:36)
[2018-04-04] MEDS: HEPARIN SOD (PORCINE) 5,000 UNIT/ML 1 ML SYRINGE SUBCUT SCH (22:36)
[2018-04-04] MEDS: ATORVASTATIN CALCIUM 40 MG TABLET PO SCH (22:36)
[2018-04-04] MEDS: INSULIN REG, HUMAN 100 UNIT/ML 3 ML VIAL (PYX) SUBCUT SCH (23:52)
[2018-04-05] MEDS: IPRATROPIUM/ALBUTEROL 0.5-2.5 MG/3 ML AMPUL NEB SCH ×4 (01:47→20:49)
[2018-04-05] MEDS: LANSOPRAZOLE 30 MG TAB.RAP.DR PO SCH ×2 (05:52→17:56)
[2018-04-05] MEDS: HEPARIN SOD (PORCINE) 5,000 UNIT/ML 1 ML SYRINGE SUBCUT SCH ×3 (05:52→21:08)
[2018-04-05] MEDS: NORMAL SALINE 1000 ML 1,000 ML IV PRN ×2 (06:31→17:56)
[2018-04-05 06:43] LABS: HEMATOCRIT 31.5 % (36.0-47.0); HEMOGLOBIN 10.5 g/dL (12.0-15.5); MEAN CORPUSCULAR HEMOGLOBIN 28.2 pg (27.0-33.4); MEAN CORPUSCULAR HGB CONC 33.3 g/dL (32.0-36.0); MEAN CORPUSCULAR VOLUME 85 fl (80-97); PLATELET COUNT 144 10^3/uL (150-450); RED BLOOD COUNT 3.72 10^6/uL (3.72-5.28); RED CELL DISTRIBUTION WIDTH 18.9 % (11.5-14.0); WHITE BLOOD COUNT 4.9 10^3/uL (4.0-10.5)
[2018-04-05 07:03] LABS: ALANINE AMINOTRANSFERASE 43 U/L (9-52); ALBUMIN 4.2 g/dL (3.5-5.0); ALKALINE PHOSPHATASE 113 U/L (38-126); ANION GAP 10 (5-19); ASPARTATE AMINO TRANSFERASE 59 U/L (14-36); BILIRUBIN,DIRECT 0.3 mg/dL (0.0-0.4); BILIRUBIN,TOTAL 0.3 mg/dL (0.2-1.3); BLOOD UREA NITROGEN 66 mg/dL (7-20); CARBON DIOXIDE 18 mmol/L (22-30); CHLORIDE 116 mmol/L (98-107); GLUCOSE 118 mg/dL (75-110); POTASSIUM 5.8 mmol/L (3.6-5.0); SODIUM 143.6 mmol/L (137-145); TOTAL PROTEIN 7.4 g/dL (6.3-8.2)
[2018-04-05] MEDS: INSULIN REG, HUMAN 100 UNIT/ML 3 ML VIAL (PYX) SUBCUT SCH ×4 (08:18→21:08)
--- NOTE | 2018-04-05 10:16 | Physician Advisory Note ---
Physician Advisor ProgressNote .: Pursuant to the plan for Skinny Hirsch, I have reviewed the medical record for this patient. Physician Advisor Statement: Pt reports possible/early COPD, as well as "asthma". ECHO on previous visit showed grade II/IV diastolic dysfunction. Nursing note @15:17 states pt wears CPAP at home whenever she lies down, sat 88- 90% on RA. Nsg note at 13:46 on 2/4 states daughter reported O2 sat 71% on 2/3 PM while sitting up in chair -> went to bed & put on CPAP, sat increased to 89% on CPAP. Baseline sats 89-94% without CPAP. Had labored breathing, ZAMORA, & orthopnea documented while on CPAP at 23:06 [Was this how she usually is from NICKY during sleep? Or was she awake then & sitting up & this finding acute? Does she usually need O2 w/her CPAP? ... Very important in this case to make it clear what resp findings are chronic & which findings are acute]. At 00:00, O2 sat was 94% on 2L O2 (gives P/F ratio of 261). At 04:00, again O2 sat 94% on 2L O2 (baseline, due to NICKY? or acute?), MAP 53. (Review of case hampered by lack of access to H&P so far. Recommendations below may therefore ask for some things attg already planned to document.) Please consider documenting, if you agree: 1. "HENRANDO, suspect due to ; baseline Cr = ____", vs HERNANDO r/o'd. 2. "morbid obesity w/BMI 44.2, w/associated " [NICKY, ?obesity hypoventil synd? ...) 3. Does she have a hypoxemia or Resp Failure that is acute? If the latter, what evidence does she have of increased difficulty breathing/work of breathing? Be sure to state how this is different from her baseline resp status. Feel free to quote reported findings above & include findings not yet documented. - or does she have a chronic hypoxemic resp failure requiring __L O2 @baseline? 4. "Chronic diastolic CHF" vs "Acute on chronic diastolic CHF, evidenced by ", vs "CHF ruled out" Status: HERANNDO/volume depletion is typically not appropriate to come in initially as Inpt because many such cases turn around quickly w/initial mgmt. - This Medicare pt has already spent 1 MN in hospital care & her hyperkalemia has acutely worsened despite IVF; Cr is improved but does not appear to be back to baseline. Plts count is worse. Intermittent tachypnea, evidence of hypoxemia & intermittent hypotension. Appropriate for Inpt status today; may machine turner to be appropriate for Inpt as of 2/4 depending on what is documented in H&P that explains why attg felt confident from the start that she would need Inpt status. Thanks! CK
[2018-04-05] MEDS: LEVOTHYROXINE SODIUM 0.1 MG TABLET PO SCH (11:33)
[2018-04-05] MEDS: AMLODIPINE BESYLATE 5 MG TABLET PO SCH (11:33)
[2018-04-05] MEDS: DULOXETINE HCL 30 MG CAPSULE.DR PO SCH ×2 (11:33→17:55)
[2018-04-05] MEDS: TIOTROPIUM BROMIDE DPI 5 CAP/KIT (18 MCG/CAP) IH SCH (11:35)
[2018-04-05] MEDS: GABAPENTIN 300 MG CAPSULE PO SCH (11:36)
--- NOTE | 2018-04-05 15:19 | RADIOLOGY REPORT (SQ) ---
EXAM DESCRIPTION: [employer] COMPLETED DATE/TIME: 04/05/2018 1:16 pm REASON FOR STUDY: HERNANDO COMPARISON: 01/27/2017 TECHNIQUE: Dynamic and static grayscale images acquired of the kidneys and bladder and recorded on P ACS. Additional selected color Doppler and spectral images recorded. LIMITATIONS: None. FINDINGS: RIGHT KIDNEY: Normal in size measuring 11.8 cm Normal echogenicity. No solid or suspi cious masses. No hydronephrosis. No calcifications. LEFT KIDNEY: Normal in size measuring 12.5 cm Normal echogenicity. No solid or suspicious masses . No hydronephrosis. No calcifications. BLADDER: No masses. OTHER FINDINGS: No other significant finding. IMPRESSION: Unremarkable renal ultrasound. No hydronephrosis. TECHNICAL DOCUMENTATION: JOB ID: [id number] [employer]- All Rights Reserved Reading location - IP/workstation name: [email or web address]
--- NOTE | 2018-04-05 18:12 | PDOC PROGRESS REPORT ---
Subjective Progress Note for:: 04/05/18 Subjective:: Patient still having persistent watery diarrhea otherwise no acute events. Complaining of generalized weakness. She is ambulatory p.o. tolerant denying any nausea, vomiting, abdominal pain, urinary symptoms, chest pain or shortness of breath. Reason For Visit: HERNANDO,VOLUME DEPLETION Physical Exam Vital Signs: Temp Pulse Resp BP Pulse Ox 98.7 F 92 20 143/89 H 98 04/05/18 16:36 04/05/18 16:36 04/05/18 16:36 04/05/18 16:36 04/05/18 16:36 Intake & Output 04/04/18 04/05/18 04/06/18 06:59 06:59 06:59 Intake Total 2300 1000 Output Total 300 Balance 2000 1000 Weight 106.1 kg General appearance: PRESENT: no acute distress, well-developed, well-nourished Head exam: PRESENT: atraumatic, normocephalic Respiratory exam: PRESENT: clear to auscultation vicky. ABSENT: rales, rhonchi, wheezes Cardiovascular exam: PRESENT: RRR. ABSENT: diastolic murmur, rubs, systolic murmur GI/Abdominal exam: PRESENT: normal bowel sounds, soft. ABSENT: distended, guarding, mass, organolmegaly, rebound, tenderness Neurological exam: PRESENT: alert, awake, oriented to person, oriented to place, oriented to time, oriented to situation, CN II-XII grossly intact. ABSENT: motor sensory deficit Results Laboratory Results: 04/05/18 06:10 04/05/18 06:10 04/04/18 04/05/18 04/05/18 15:48 06:10 06:10 WBC 4.9 RBC 3.72 Hgb 10.5 L Hct 31.5 L MCV 85 MCH 28.2 MCHC 33.3 RDW 18.9 H Plt Count 144 L Sodium 143.6 Potassium 5.8 H Chloride 116 H Carbon Dioxide 18 L Anion Gap 10 BUN 66 H Creatinine 1.38 H Est GFR ( Amer) 46 L Est GFR (Non-Af Amer) 38 L Glucose 118 H Calcium 9.0 Magnesium 1.2 L* Total Bilirubin 0.3 AST 59 H ALT 43 Alkaline Phosphatase 113 Total Protein 7.4 Albumin 4.2 TSH 1.61 Free T4 0.88 Free T3 pg/mL 2.69 L 04/04/18 04/04/18 15:48 15:48 Creatine Kinase 34 CK-MB (CK-2) < 0.22 Troponin I < 0.012 NT-Pro-B Natriuret Pep 15 Impressions: Chest X-Ray 04/04/18 13:57 IMPRESSION: NO ACUTE RADIOGRAPHIC FINDING IN THE CHEST. Renal Ultrasound 04/05/18 00:00 IMPRESSION: Unremarkable renal ultrasound. No hydronephrosis. Assessment & Plan - Diagnosis (1) Acute kidney injury Is this a current diagnosis for this admission?: Yes Plan: Improving. Creatinine 1.68 down from 2.06 likely prerenal caused by volume depletion due to underlying diarrhea. FeNa 3.87%. Renal ultrasound normal. Continue IV fluids. BMP tomorrow. Monitor volume status. (2) Diarrhea Is this a current diagnosis for this admission?: Yes Plan: Unlikely infectious. Pending stool workup to rule out any infectious causes. (3) Volume depletion Is this a current diagnosis for this admission?: Yes Plan: IV fluids. (4) COPD (chronic obstructive pulmonary disease) Qualifiers: COPD type: unspecified COPD Qualified Code(s): J44.9 - Chronic obstructive pulmonary disease, unspecified Is this a current diagnosis for this admission?: Yes Plan: Not an acute exacerbation. Duo nebs. Restart home meds. BiPAP as needed. (5) Hypertension Qualifiers: Hypertension type: essential hypertension Qualified Code(s): I10 - Essential (primary) hypertension Is this a current diagnosis for this admission?: Yes Plan: Normotensive. Restart home meds once appropriate. Monitor vitals. (6) Morbid obesity Is this a current diagnosis for this admission?: Yes Plan: Diet and lifestyle modification. (7) Type 2 diabetes mellitus Is this a current diagnosis for this admission?: Yes Plan: Controlled. A1c 6.6%. Accu-Chek, diabetic diet, acting insulin, sliding scale insulin, pre-meal insulin. Adjust dose as needed. Outpatient PCP follow-up.
[2018-04-05] MEDS ORDERED: MAGNESIUM SULFATE/D5W 1 GM/100 ML RTUPB IV ONE (19:30)
[2018-04-05] MEDS ORDERED: CALCIUM GLUCONATE 1000 MG/10 ML INJ IV ONE (19:30)
[2018-04-05] MEDS: TRAZODONE HCL 50 MG TABLET PO SCH (21:08)
[2018-04-05] MEDS: ATORVASTATIN CALCIUM 40 MG TABLET PO SCH (21:08)
[2018-04-06] MEDS: IPRATROPIUM/ALBUTEROL 0.5-2.5 MG/3 ML AMPUL NEB SCH ×4 (02:53→20:19)
[2018-04-06] MEDS: NORMAL SALINE 1000 ML 1,000 ML IV PRN ×2 (03:55→18:06)
[2018-04-06] MEDS: HEPARIN SOD (PORCINE) 5,000 UNIT/ML 1 ML SYRINGE SUBCUT SCH ×3 (05:45→21:01)
[2018-04-06] MEDS: LANSOPRAZOLE 30 MG TAB.RAP.DR PO SCH ×2 (05:49→18:06)
[2018-04-06 05:53] LABS: ABSOLUTE EOSINOPHILS # (AUTO) 0.2 10^3/uL (0.0-0.6); ABSOLUTE LYMPHOCYTES (AUTO) 1.4 10^3/uL (0.5-4.7); ABSOLUTE MONOCYTES (AUTO) 0.4 10^3/uL (0.1-1.4); ABSOLUTE NEUT (AUTO) 2.2 10^3/uL (1.7-8.2); BASOPHILS % (AUTO) 0.8 % (0-2); EOSINOPHILS % (AUTO) 4.1 % (0-6); HEMATOCRIT 30.4 % (36.0-47.0); HEMOGLOBIN 10.2 g/dL (12.0-15.5); LYMPHOCYTES % (AUTO) 33.5 % (13-45); MEAN CORPUSCULAR HEMOGLOBIN 28.2 pg (27.0-33.4); MEAN CORPUSCULAR HGB CONC 33.3 g/dL (32.0-36.0); MEAN CORPUSCULAR VOLUME 85 fl (80-97); PLATELET COUNT 139 10^3/uL (150-450); RED CELL DISTRIBUTION WIDTH 18.7 % (11.5-14.0); SEGMENTED NEUTROPHILS % (AUTO) 52.6 % (42-78); TOTAL CELLS COUNTED % (AUTO) 100 %; WHITE BLOOD COUNT 4.1 10^3/uL (4.0-10.5)
[2018-04-06 06:12] LABS: ANION GAP 10 (5-19)
[2018-04-06 06:14] LABS: ALANINE AMINOTRANSFERASE 36 U/L (9-52); ALKALINE PHOSPHATASE 113 U/L (38-126); ASPARTATE AMINO TRANSFERASE 49 U/L (14-36); BILIRUBIN,DIRECT 0.2 mg/dL (0.0-0.4); BILIRUBIN,TOTAL 0.2 mg/dL (0.2-1.3); CALCIUM 9.2 mg/dL (8.4-10.2); CARBON DIOXIDE 21 mmol/L (22-30); CHLORIDE 114 mmol/L (98-107); GLUCOSE 133 mg/dL (75-110); SODIUM 144.8 mmol/L (137-145); TOTAL PROTEIN 6.8 g/dL (6.3-8.2)
[2018-04-06 06:48] LABS: BLOOD UREA NITROGEN 38 mg/dL (7-20)
[2018-04-06] MEDS: INSULIN REG, HUMAN 100 UNIT/ML 3 ML VIAL (PYX) SUBCUT SCH ×4 (08:33→21:02)
[2018-04-06] MEDS: LEVOTHYROXINE SODIUM 0.1 MG TABLET PO SCH (10:34)
[2018-04-06] MEDS: GABAPENTIN 300 MG CAPSULE PO SCH (10:34)
[2018-04-06] MEDS: AMLODIPINE BESYLATE 5 MG TABLET PO SCH (10:34)
[2018-04-06] MEDS: TIOTROPIUM BROMIDE DPI 5 CAP/KIT (18 MCG/CAP) IH SCH (10:35)
[2018-04-06] MEDS: DULOXETINE HCL 30 MG CAPSULE.DR PO SCH ×2 (10:35→18:06)
[2018-04-06] MEDS ORDERED: ACETAMINOPHEN 325 MG TABLET PO PRN (13:18)
--- NOTE | 2018-04-06 17:42 | PDOC PROGRESS REPORT ---
Subjective Progress Note for:: 04/06/18 Subjective:: Mild improvement of diarrhea, diarrhea is not as watery, nonbloody. Weakness has improved. She is ambulatory p.o. tolerant denying any nausea, vomiting, abdominal pain, urinary symptoms, chest pain or shortness of breath. Reason For Visit: HERNANDO,VOLUME DEPLETION Physical Exam Vital Signs: Temp Pulse Resp BP Pulse Ox 99.5 F 88 18 122/42 L 92 04/06/18 15:40 04/06/18 15:40 04/06/18 15:40 04/06/18 15:40 04/06/18 15:40 Intake & Output 04/05/18 04/06/18 04/07/18 06:59 06:59 06:59 Intake Total 2300 3739 Output Total 300 3600 Balance 2000 139 Weight 106.1 kg 109.4 kg General appearance: PRESENT: no acute distress, well-developed, well-nourished Head exam: PRESENT: atraumatic, normocephalic Respiratory exam: PRESENT: clear to auscultation vicky. ABSENT: rales, rhonchi, wheezes Cardiovascular exam: PRESENT: RRR. ABSENT: diastolic murmur, rubs, systolic murmur GI/Abdominal exam: PRESENT: normal bowel sounds, soft. ABSENT: distended, guarding, mass, organolmegaly, rebound, tenderness Extremities exam: PRESENT: full ROM. ABSENT: calf tenderness, clubbing, pedal edema Neurological exam: PRESENT: alert, awake, oriented to person, oriented to place, oriented to time, oriented to situation, CN II-XII grossly intact. ABSENT: motor sensory deficit Results Laboratory Results: 04/06/18 05:08 04/06/18 05:08 04/06/18 04/06/18 05:08 05:08 WBC 4.1 RBC 3.60 L Hgb 10.2 L Hct 30.4 L MCV 85 MCH 28.2 MCHC 33.3 RDW 18.7 H Plt Count 139 L Seg Neutrophils % 52.6 Lymphocytes % 33.5 Monocytes % 9.0 Eosinophils % 4.1 Basophils % 0.8 Absolute Neutrophils 2.2 Absolute Lymphocytes 1.4 Absolute Monocytes 0.4 Absolute Eosinophils 0.2 Absolute Basophils 0.0 Sodium 144.8 Potassium 5.0 Chloride 114 H Carbon Dioxide 21 L Anion Gap 10 BUN 38 H D Creatinine 0.97 Est GFR ( Amer) > 60 Est GFR (Non-Af Amer) 57 L Glucose 133 H Calcium 9.2 Magnesium 1.3 L Total Bilirubin 0.2 AST 49 H ALT 36 Alkaline Phosphatase 113 Total Protein 6.8 Albumin 4.0 04/04/18 04/04/18 15:48 15:48 Creatine Kinase 34 CK-MB (CK-2) < 0.22 Troponin I < 0.012 NT-Pro-B Natriuret Pep 15 Impressions: Chest X-Ray 04/04/18 13:57 IMPRESSION: NO ACUTE RADIOGRAPHIC FINDING IN THE CHEST. Renal Ultrasound 04/05/18 00:00 IMPRESSION: Unremarkable renal ultrasound. No hydronephrosis. Assessment & Plan - Diagnosis (1) Acute kidney injury Is this a current diagnosis for this admission?: Yes Plan: Resolved. Creatinine 0.97 down from 2.06 likely prerenal caused by volume deple tion due to underlying diarrhea. FeNa 3.87%. Renal ultrasound normal. Continue IV fluids. BMP tomorrow. Monitor volume status. (2) Diarrhea Is this a current diagnosis for this admission?: Yes Plan: Improving. Unlikely infectious. C. difficile negative leukocytosis. Pending stool workup to rule out any infectious causes. (3) Volume depletion Is this a current diagnosis for this admission?: Yes Plan: Euvolemic. Monitor volume status (4) COPD (chronic obstructive pulmonary disease) Qualifiers: COPD type: unspecified COPD Qualified Code(s): J44.9 - Chronic obstructive pulmonary disease, unspecified Is this a current diagnosis for this admission?: Yes Plan: Not an acute exacerbation. Duo nebs. Restart home meds. BiPAP as needed. (5) Hypertension Qualifiers: Hypertension type: essential hypertension Qualified Code(s): I10 - Essential (primary) hypertension Is this a current diagnosis for this admission?: Yes Plan: Normotensive. Restart home meds once appropriate. Monitor vitals. (6) Morbid obesity Is this a current diagnosis for this admission?: Yes Plan: Diet and lifestyle modification. (7) Type 2 diabetes mellitus Is this a current diagnosis for this admission?: Yes Plan: Controlled. A1c 6.6%. Accu-Chek, diabetic diet, acting insulin, sliding scale insulin, pre-meal insulin. Adjust dose as needed. Outpatient PCP follow-up. (8) Hypomagnesemia Is this a current diagnosis for this admission?: Yes Plan: Likely due to GI losses. Replace as needed. Magnesium level tomorrow.
[2018-04-06] MEDS: MAGNESIUM OXIDE 400 MG TABLET PO SCH (18:14)
[2018-04-06] MEDS: TRAZODONE HCL 50 MG TABLET PO SCH (21:03)
[2018-04-06] MEDS: ATORVASTATIN CALCIUM 40 MG TABLET PO SCH (21:03)
[2018-04-07] MEDS: IPRATROPIUM/ALBUTEROL 0.5-2.5 MG/3 ML AMPUL NEB SCH ×4 (01:22→20:16)
[2018-04-07] MEDS: HEPARIN SOD (PORCINE) 5,000 UNIT/ML 1 ML SYRINGE SUBCUT SCH ×3 (05:45→21:37)
[2018-04-07] MEDS: LANSOPRAZOLE 30 MG TAB.RAP.DR PO SCH ×2 (05:49→18:13)
[2018-04-07] MEDS: INSULIN REG, HUMAN 100 UNIT/ML 3 ML VIAL (PYX) SUBCUT SCH ×4 (08:17→21:35)
[2018-04-07 08:38] LABS: ALANINE AMINOTRANSFERASE 41 U/L (9-52); ALBUMIN 4.2 g/dL (3.5-5.0); ALKALINE PHOSPHATASE 107 U/L (38-126); ANION GAP 11 (5-19); ASPARTATE AMINO TRANSFERASE 43 U/L (14-36); BILIRUBIN,DIRECT 0.2 mg/dL (0.0-0.4); BILIRUBIN,TOTAL 0.3 mg/dL (0.2-1.3); BLOOD UREA NITROGEN 24 mg/dL (7-20); CALCIUM 9.2 mg/dL (8.4-10.2); CARBON DIOXIDE 23 mmol/L (22-30); CHLORIDE 109 mmol/L (98-107); GLUCOSE 128 mg/dL (75-110); POTASSIUM 4.7 mmol/L (3.6-5.0); SODIUM 143.1 mmol/L (137-145)
[2018-04-07] MEDS: MAGNESIUM OXIDE 400 MG TABLET PO SCH ×2 (09:13→18:13)
[2018-04-07] MEDS: DULOXETINE HCL 30 MG CAPSULE.DR PO SCH ×2 (09:13→18:13)
[2018-04-07] MEDS: AMLODIPINE BESYLATE 5 MG TABLET PO SCH (09:13)
[2018-04-07] MEDS: GABAPENTIN 300 MG CAPSULE PO SCH (09:13)
[2018-04-07] MEDS: LEVOTHYROXINE SODIUM 0.1 MG TABLET PO SCH (09:14)
[2018-04-07] MEDS: TIOTROPIUM BROMIDE DPI 5 CAP/KIT (18 MCG/CAP) IH SCH (09:14)
[2018-04-07] MEDS ORDERED: MAGNESIUM SULFATE/D5W 1 GM/100 ML RTUPB IV ONE ×2 (10:00→18:00)
--- NOTE | 2018-04-07 19:13 | PDOC PROGRESS REPORT ---
Subjective Progress Note for:: 04/07/18 Subjective:: Diarrhea and weakness has since resolved. Diarrhea resolved Weakness has improved. She is ambulatory p.o. tolerant denying any nausea, vomiting, abdominal pain, urinary symptoms, chest pain or shortness of breath. Has low magnesium and have been trying to replace it twice over the day however still low magnesium. Will DC tomorrow if electrolytes within normal limits. Reason For Visit: HERNANDO,VOLUME DEPLETION Physical Exam Vital Signs: Temp Pulse Resp BP Pulse Ox 98.4 F 76 16 114/48 L 96 04/07/18 12:00 04/07/18 14:32 04/07/18 14:32 04/07/18 12:00 04/07/18 14:32 Intake & Output 04/06/18 04/07/18 04/08/18 06:59 06:59 06:59 Intake Total 3739 2716 100 Output Total 3600 1800 Balance 139 916 100 Weight 109.4 kg 109 kg General appearance: PRESENT: no acute distress, well-developed, well-nourished Respiratory exam: PRESENT: clear to auscultation vicky. ABSENT: rales, rhonchi, wheezes GI/Abdominal exam: PRESENT: normal bowel sounds, soft. ABSENT: distended, guarding, mass, organolmegaly, rebound, tenderness Extremities exam: PRESENT: full ROM. ABSENT: calf tenderness, clubbing, pedal edema Neurological exam: PRESENT: alert, awake, oriented to person, oriented to place, oriented to time, oriented to situation, CN II-XII grossly intact. ABSENT: motor sensory deficit Results Laboratory Results: 04/06/18 05:08 04/07/18 08:05 04/07/18 04/07/18 04/07/18 06:33 08:05 13:13 Sodium Cancelled 143.1 Potassium Cancelled 4.7 Chloride Cancelled 109 H Carbon Dioxide Cancelled 23 Anion Gap Cancelled 11 BUN Cancelled 24 H Creatinine Cancelled 0.75 Est GFR ( Amer) Cancelled > 60 Est GFR (Non-Af Amer) Cancelled > 60 Glucose Cancelled 128 H Calcium Cancelled 9.2 Magnesium Cancelled 1.3 L 1.4 L Total Bilirubin Cancelled 0.3 AST Cancelled 43 H ALT Cancelled 41 Alkaline Phosphatase Cancelled 107 Total Protein Cancelled 7.0 Albumin Cancelled 4.2 04/07/18 15:25 Sodium Potassium Chloride Carbon Dioxide Anion Gap BUN Creatinine Est GFR ( Amer) Est GFR (Non-Af Amer) Glucose Calcium Magnesium 1.4 L Total Bilirubin AST ALT Alkaline Phosphatase Total Protein Albumin 04/04/18 04/04/18 15:48 15:48 Creatine Kinase 34 CK-MB (CK-2) < 0.22 Troponin I < 0.012 NT-Pro-B Natriuret Pep 15 Impressions: Chest X-Ray 04/04/18 13:57 IMPRESSION: NO ACUTE RADIOGRAPHIC FINDING IN THE CHEST. Renal Ultrasound 04/05/18 00:00 IMPRESSION: Unremarkable renal ultrasound. No hydronephrosis. Assessment & Plan - Diagnosis (1) Acute kidney injury Is this a current diagnosis for this admission?: Yes Plan: Resolved. Creatinine 0.97 down from 2.06 likely prerenal caused by volume depletion due to underlying diarrhea. FeNa 3.87%. Renal ultrasound normal. Continue IV fluids. BMP tomorrow. Monitor volume status. (2) Diarrhea Is this a current diagnosis for this admission?: Yes Plan: Resolved. Unlikely infectious. C. difficile negative, no leukocytosis. (3) Volume depletion Is this a current diagnosis for this admission?: Yes Plan: Euvolemic. Monitor volume status (4) COPD (chronic obstructive pulmonary disease) Qualifiers: COPD type: unspecified COPD Qualified Code(s): J44.9 - Chronic obstructive pulmonary disease, unspecified Is this a current diagnosis for this admission?: Yes Plan: Not an acute exacerbation. Duo nebs. Restart home meds. BiPAP as needed. (5) Hypertension Qualifiers: Hypertension type: essential hypertension Qualified Code(s): I10 - Essential (primary) hypertension Is this a current diagnosis for this admission?: Yes Plan: Normotensive. Restart home meds once appropriate. Monitor vitals. (6) Morbid obesity Is this a current diagnosis for this admission?: Yes Plan: Diet and lifestyle modification. (7) Type 2 diabetes mellitus Is this a current diagnosis for this admission?: Yes Plan: Controlled. A1c 6.6%. Accu-Chek, diabetic diet, acting insulin, sliding scale insulin, pre-meal insulin. Adjust dose as needed. Outpatient PCP follow-up. (8) Hypomagnesemia Is this a current diagnosis for this admission?: Yes Plan: Likely due to GI losses. Replace as needed. Magnesium level tomorrow.
[2018-04-07] MEDS: TRAZODONE HCL 50 MG TABLET PO SCH (21:35)
[2018-04-07] MEDS: ATORVASTATIN CALCIUM 40 MG TABLET PO SCH (21:35)
[2018-04-08] MEDS: IPRATROPIUM/ALBUTEROL 0.5-2.5 MG/3 ML AMPUL NEB SCH ×2 (02:08→08:42)
[2018-04-08] MEDS: HEPARIN SOD (PORCINE) 5,000 UNIT/ML 1 ML SYRINGE SUBCUT SCH (05:32)
[2018-04-08] MEDS: LANSOPRAZOLE 30 MG TAB.RAP.DR PO SCH (05:33)
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
[2018-04-08] MEDS: INSULIN REG, HUMAN 100 UNIT/ML 3 ML VIAL (PYX) SUBCUT SCH (07:49)
[2018-04-08] MEDS: MAGNESIUM OXIDE 400 MG TABLET PO SCH (09:20)
[2018-04-08] MEDS: DULOXETINE HCL 30 MG CAPSULE.DR PO SCH (09:20)
[2018-04-08] MEDS: AMLODIPINE BESYLATE 5 MG TABLET PO SCH (09:20)
[2018-04-08] MEDS: TIOTROPIUM BROMIDE DPI 5 CAP/KIT (18 MCG/CAP) IH SCH (09:21)
[2018-04-08] MEDS: LEVOTHYROXINE SODIUM 0.1 MG TABLET PO SCH (09:21)
[2018-04-08] MEDS: GABAPENTIN 300 MG CAPSULE PO SCH (09:21)
[2018-04-08 10:18] VITALS: BP 114/48
--- NOTE | 2018-04-12 18:17 | PDOC DISCHARGE SUMMARY ---
General - Admit/Disc Date/PCP Admission Date/Primary Care Provider: 04/04/18 17:42 SOSA VARELA, Discharge Date: 04/08/18 - Discharge Diagnosis (1) Acute kidney injury Is this a current diagnosis for this admission?: Yes (2) Diarrhea Is this a current diagnosis for this admission?: Yes (3) Volume depletion Is this a current diagnosis for this admission?: Yes (4) COPD (chronic obstructive pulmonary disease) Is this a current diagnosis for this admission?: Yes (5) Hypertension Is this a current diagnosis for this admission?: Yes (6) Morbid obesity Is this a current diagnosis for this admission?: Yes (7) Type 2 diabetes mellitus Is this a current diagnosis for this admission?: Yes - Additional Information Discharge Diet: As Tolerated Discharge Activity: Activity As Tolerated Prescriptions: Magnesium Oxide [Mag-Ox 400 mg Tablet] 800 mg PO BID 7 Days #14 tablet Home Medications: Albuterol Sulfate [Ventolin Hfa] 2 puff IH QID 10/14/17 Amlodipine Besylate [Norvasc 5 mg Tablet] 5 mg PO DAILY 10/14/17 Duloxetine HCl [Cymbalta] 30 mg PO BID 10/14/17 Fluticasone/Vilanterol [Breo Ellipta 200-25 Mcg INH] 1 puff IH DAILY 10/14/17 Gabapentin [Neurontin 300 mg Capsule] 300 mg PO DAILY 10/14/17 Gabapentin [Neurontin 300 mg Capsule] 900 mg PO QHS 10/14/17 Glimepiride [Amaryl] 2 mg PO BID 10/14/17 Levothyroxine Sodium [Synthroid 0.1 mg Tablet] 0.1 mg PO DAILY 10/14/17 Metformin HCl [Metformin HCl ER] 1,000 mg PO BID 10/14/17 Omeprazole 40 mg PO BID 10/14/17 Rosuvastatin Calcium [Crestor 20 mg Tablet] 20 mg PO QHS 10/14/17 Trazodone HCl [Desyrel 50 mg Tablet] 50 mg PO QHS 10/14/17 Calcium Carbonate [Calcium] 500 mg PO DAILY 04/04/18 Lisinopril/Hydrochlorothiazide [Lisinopril-Hctz 20-25 mg Tab] 1 each PO DAILY 04/04/18 Lorazepam [Ativan 0.5 mg Tablet] 0.5 mg PO BID 04/04/18 Potassium 99 mg PO QHS 04/04/18 Magnesium Oxide [Mag-Ox 400 mg Tablet] 800 mg PO BID 7 Days #14 tablet 04/07/18 Tiotropium [place] [Spiriva Handihaler 5 Cap/Kit (18 Mcg/Cap)] 1 cap IH DAILY 30 Days #0 kit 04/07/18 History of Present Illness History of Present Illness: JOYCELYN HOLLOWAY is a 68 year old female past medical history of COPD, diabetes, hypertension, diverticulitis status post partial left colectomy several years ago taken to ED complaining of weakness, fatigue and watery diarrhea for the last 3 days weeks, denies any blood in his stool, recent travel, sick contacts, herbal meds. She is p.o. tolerant denying any fever, chills, nausea, vomiting, or any abdominal discomfort. She has noticed decreased urinary output. In ED she was found to have a potassium of level of 5.2, creatinine 2.06 from baseline of 0.69 on 12/03/2017. Hospital was consulted for admission. Hospital Course Hospital Course: (1) Acute kidney injury Resolved. Creatinine 0.97 down from 2.06 likely prerenal caused by volume depletion due to underlying diarrhea. FeNa 3.87%. Renal ultrasound normal. Was started on IV fluids. (2) Diarrhea Resolved. Unlikely infectious. C. difficile negative, no leukocytosis. (3) Volume depletion Euvolemic. Received volume resuscitation. (4) COPD (chronic obstructive pulmonary disease) Not an acute exacerbation. Duo nebs. Restart home meds. BiPAP as needed. (5) Hypertension Normotensive. Restart home meds once appropriate. Monitor vitals. (6) Morbid obesity Diet and lifestyle modification. (7) Type 2 diabetes mellitus Controlled. A1c 6.6%. Was started on Accu-Chek, diabetic diet, acting insulin, sliding scale insulin, pre-meal insulin. Adjust dose as needed. Outpatient PCP follow-up. (8) Hypomagnesemia Resloved, likely due to GI losses. Pt was sent home with supplement Mg to follow up with pcp. Physical Exam Vital Signs: Temp Pulse Resp BP Pulse Ox 97.8 F 94 16 114/48 L 93 04/08/18 10:16 04/08/18 10:16 04/08/18 10:16 04/08/18 10:16 04/08/18 10:16 General appearance: PRESENT: obese Head exam: PRESENT: atraumatic, normocephalic Respiratory exam: PRESENT: clear to auscultation vicky. ABSENT: rales, rhonchi, wheezes Cardiovascular exam: PRESENT: RRR. ABSENT: diastolic murmur, rubs, systolic murmur GI/Abdominal exam: PRESENT: normal bowel sounds, soft. ABSENT: distended, guarding, mass, organolmegaly, rebound, tenderness Neurological exam: PRESENT: alert, awake, oriented to person, oriented to place, oriented to time, oriented to situation, CN II-XII grossly intact. ABSENT: motor sensory deficit Results Laboratory Results: 04/06/18 05:08 04/07/18 08:05 04/04/18 04/04/18 15:48 15:48 Creatine Kinase 34 CK-MB (CK-2) < 0.22 Troponin I < 0.012 NT-Pro-B Natriuret Pep 15 Impressions: Chest X-Ray 04/04/18 13:57 IMPRESSION: NO ACUTE RADIOGRAPHIC FINDING IN THE CHEST. Renal Ultrasound 04/05/18 00:00 IMPRESSION: Unremarkable renal ultrasound. No hydronephrosis. Qualifiers - * PATIENT BEING DISCHARGED WITH ANY OF THE FOLLOWING DIAGNOSIS: No VTE patient discharged on overlapping Therapy?: Yes
== END 2018-04-08 12:10 | disposition home or self-care (01) | DRG 683 ==
LOC: ER 12:51 → EH 17:42 → 4S 20:30
PROVIDERS: ADMIT Internal Medicine; ATTEND Internal Medicine
DX: N17.9 Acute kidney failure, unspecified (principal); Z68.42 Body mass index [BMI] 45.0-49.9, adult; R19.7 Diarrhea, unspecified; E86.9 Volume depletion, unspecified; E83.42 Hypomagnesemia; E11.8 Type 2 diabetes mellitus with unspecified complications; I10 Essential (primary) hypertension; I25.10 Atherosclerotic heart disease of native coronary artery without angina pectoris; E78.5 Hyperlipidemia, unspecified; J44.9 Chronic obstructive pulmonary disease, unspecified; K21.9 Gastro-esophageal reflux disease without esophagitis; F43.10 Post-traumatic stress disorder, unspecified; E66.01 Morbid (severe) obesity due to excess calories; Z90.49 Acquired absence of other specified parts of digestive tract; Z79.84 Long term (current) use of oral hypoglycemic drugs; Z79.51 Long term (current) use of inhaled steroids; Z79.899 Other long term (current) drug therapy
CPT/HCPCS: 36415; 71046; 76775; 80053; 81001; 82550; 82553; 82570; 82962; 83036; 83735; 83880; 84300; 84439; 84443; 84481; 84484; 85025; 85027; 87493; 93005; 93010; 94640; 94660; 96360; 96361; 99285; J0610; J1644; J1815; J3475; J3490; J7030; J7620

== ENCOUNTER → 2018-04-27 | Outpatient (CLI) | payer MEDICARE, MEDICAID ==
[2018-04-28 13:38] LABS: ANTICHROMATIN AB <0.2 AI (0.0-0.9); CENTROMERE B AB <0.2 AI (0.0-0.9); JO-1 ANTIBODY (ANACOMP) <0.2 AI (0.0-0.9); SJOGREN'S ANTI-SS-B AB <0.2 AI (0.0-0.9); SJOGREN'S SS-A ANTIBODY <0.2 AI (0.0-0.9)
[2018-04-28 14:52] LABS: DNA DOUBLE STRAND ANTIBODY ANA 5 IU/mL (0-9)
[2018-04-29 15:37] LABS: CYTOPLASMIC (C-ANCA) <1:20 titer (Neg:<1:20)
[2018-05-01 03:37] LABS: ATYPICAL PANCA <1:20 titer (Neg:<1:20); PERINUCLEAR (P-ANCA) <1:20 titer (Neg:<1:20)
== END ==
LOC: OD 10:22
PROVIDERS: ATTEND Internal Medicine Pulmonary Disease
DX: R94.2 Abnormal results of pulmonary function studies (principal)
CPT/HCPCS: 36415; 86021; 86225; 86235; 86430

== ENCOUNTER 2018-05-24 15:57 | Emergency (ER) | payer MEDICARE, MEDICAID ==
[2018-05-24] MEDS ORDERED: TRAMADOL HCL 50 MG TABLET PO ONE (16:29)
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
[2018-05-24] MEDS ORDERED: IBUPROFEN 600 MG TABLET PO ONE (17:55)
[2018-05-24 18:28] VITALS: BP 147/57
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
== END 2018-05-24 18:30 | disposition home or self-care (01) ==
LOC: ER 15:57
DX: S69.91XA Unspecified injury of right wrist, hand and finger(s), initial encounter (principal); S06.9X0A Unspecified intracranial injury without loss of consciousness, initial encounter; G44.319 Acute post-traumatic headache, not intractable; H53.8 Other visual disturbances; Y04.0XXA Assault by unarmed brawl or fight, initial encounter; Y92.009 Unspecified place in unspecified non-institutional (private) residence as the place of occurrence of the external cause; I25.10 Atherosclerotic heart disease of native coronary artery without angina pectoris; E78.00 Pure hypercholesterolemia, unspecified; I10 Essential (primary) hypertension; E11.9 Type 2 diabetes mellitus without complications; Z91.040 Latex allergy status; Z88.6 Allergy status to analgesic agent; Z90.710 Acquired absence of both cervix and uterus; Z98.51 Tubal ligation status; Z99.81 Dependence on supplemental oxygen; Z87.442 Personal history of urinary calculi
CPT/HCPCS: 99284; 73110; 70450; A9270 ×2

== ENCOUNTER 2018-07-08 09:55 | Emergency (ER) | payer MEDICARE, MEDICAID ==
--- NOTE | 2018-07-08 10:24 | ER Document Report ---
ED Medical Screen (RME) - General Chief Complaint: Abdominal Pain Stated Complaint: ABDOMINAL PAIN Time Seen by Provider: 07/08/18 10:19 Primary Care Provider: SOSA VARELA DO [Primary Care Provider] - Follow up as needed Mode of Arrival: Ambulatory Information source: Patient Notes: Patient presents complaining of left lower quadrant pain that started yesterday. Patient reports subjective fever at home. Patient denies any nausea vomiting or diarrhea. Patient denies any urinary symptoms. Patient states she has chronic frequent blood in her stool but states that doctors that she seen in the past were not concerned by this finding. Patient does report a history of diverticulitis and suspects the same today. hx: COPD diabetes, diverticulosis I have greeted and performed a rapid initial assessment of this patient. A comprehensive ED assessment and evaluation of the patient, analysis of test results and completion of the medical decision making process will be conducted by additional ED providers. TRAVEL OUTSIDE OF THE [place] IN LAST 30 DAYS: No - Related Data Allergies/Adverse Reactions: codeine [Codeine] Allergy (Severe, Verified 07/08/18 09:56) stopped breathing acetaminophen [From Darvocet-N 100] Allergy (Intermediate, Verified 07/08/18 09:56) Hallucinations latex [Latex] Allergy (Intermediate, Verified 07/08/18 09:56) Hives propoxyphene HCl [From Darvon] Allergy (Intermediate, Verified 07/08/18 09:56) Hallucinations aspirin [Aspirin] Adverse Reaction (Mild, Verified 07/08/18 09:56) n/v Past Medical History - Social History Family history: Reviewed & Not Pertinent - Past Medical History Cardiac Medical History: Reports: Hx Coronary Artery Disease, Hx Hypercholesterolemia, Hx Hypertension Denies: Hx Heart Attack Pulmonary Medical History: Reports: Hx Asthma, Hx Bronchitis, 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 Denies: Hx Peritoneal Dialysis GI Medical History: Reports: Hx Diverticulitis, Hx Gastroesophageal Reflux Dise ase Musculoskeltal Medical History: Reports Hx Arthritis - LEFT KNEE Psychiatric Medical History: Reports: Hx Depression, Hx Post Traumatic Stress Disorder Past Surgical History: Reports: Hx Abdominal Surgery - resection, Hx Cardiac Catheterization, Hx Hysterectomy, Hx Orthopedic Surgery - rt knee 05/2012, Hx Tonsillectomy, Hx Tubal Ligation. Denies: Hx Pacemaker - Immunizations Immunizations up to date: Yes Hx Diphtheria, Pertussis, Tetanus Vaccination: Yes History of Influenza Vaccine for 11/2016 - 04/2017 Season: Refused Physical Exam - Vital signs Vitals: Temp Pulse Resp BP Pulse Ox 98.4 F 78 18 145/65 H 95 07/08/18 10:01 07/08/18 10:01 07/08/18 10:01 07/08/18 10:01 07/08/18 10:01 - Abdominal Inspection: Morbidly Obese Tenderness: Tender - Left lower quadrant Course - Vital Signs Vital signs: Temp Pulse Resp BP Pulse Ox 98.4 F 78 18 145/65 H 95 07/08/18 10:01 07/08/18 10:01 07/08/18 10:01 07/08/18 10:01 07/08/18 10:01 Doctor's Discharge - Discharge Referrals: SOSA VARELA DO [Primary Care Provider] - Follow up as needed
[2018-07-08 10:51] LABS: ABSOLUTE EOSINOPHILS # (AUTO) 0.1 10^3/uL (0.0-0.6); ABSOLUTE LYMPHOCYTES (AUTO) 1.9 10^3/uL (0.5-4.7); ABSOLUTE MONOCYTES (AUTO) 0.6 10^3/uL (0.1-1.4); ABSOLUTE NEUT (AUTO) 4.8 10^3/uL (1.7-8.2); BASOPHILS % (AUTO) 0.5 % (0-2); EOSINOPHILS % (AUTO) 1.5 % (0-6); HEMATOCRIT 34.6 % (36.0-47.0); HEMOGLOBIN 11.5 g/dL (12.0-15.5); LYMPHOCYTES % (AUTO) 25.7 % (13-45); MEAN CORPUSCULAR HEMOGLOBIN 28.5 pg (27.0-33.4); MEAN CORPUSCULAR HGB CONC 33.3 g/dL (32.0-36.0); MEAN CORPUSCULAR VOLUME 86 fl (80-97); MONOCYTES % (AUTO) 8.1 % (3-13); PLATELET COUNT 217 10^3/uL (150-450); RED BLOOD COUNT 4.04 10^6/uL (3.72-5.28); RED CELL DISTRIBUTION WIDTH 16.4 % (11.5-14.0); SEGMENTED NEUTROPHILS % (AUTO) 64.2 % (42-78); TOTAL CELLS COUNTED % (AUTO) 100 %; WHITE BLOOD COUNT 7.4 10^3/uL (4.0-10.5)
[2018-07-08 11:01] LABS: APPEARANCE,URINE CLEAR; BILIRUBIN,URINE NEGATIVE (NEGATIVE); COLOR,URINE YELLOW; GLUCOSE, URINE NEGATIVE (NEGATIVE); KETONES,URINE NEGATIVE (NEGATIVE); LEUKOCYTE ESTERASE,URINE TRACE (NEGATIVE); NITRITE,URINE NEGATIVE (NEGATIVE); PROTEIN,URINE NEGATIVE (NEGATIVE); URINE SPECIFIC GRAVITY 1.018; UROBILINOGEN,URINE NEGATIVE mg/dL (<2.0)
[2018-07-08 11:08] LABS: ALANINE AMINOTRANSFERASE 36 U/L (9-52); ALBUMIN 4.3 g/dL (3.5-5.0); ALKALINE PHOSPHATASE 97 U/L (38-126); ANION GAP 13 (5-19); ASPARTATE AMINO TRANSFERASE 31 U/L (14-36); BILIRUBIN,DIRECT 0.3 mg/dL (0.0-0.4); BILIRUBIN,TOTAL 0.4 mg/dL (0.2-1.3); BLOOD UREA NITROGEN 14 mg/dL (7-20); CALCIUM 9.4 mg/dL (8.4-10.2); CARBON DIOXIDE 28 mmol/L (22-30); CHLORIDE 100 mmol/L (98-107); GLUCOSE 159 mg/dL (75-110); SODIUM 140.7 mmol/L (137-145); TOTAL PROTEIN 7.4 g/dL (6.3-8.2)
[2018-07-08] MEDS ORDERED: AMOXICILLIN TR/POT CLAVULANATE 500-125 MG TAB PO ONE (11:30)
[2018-07-08] MEDS ORDERED: METRONIDAZOLE 500 MG TABLET PO ONE (11:30)
[2018-07-08] MEDS ORDERED: AMOXICILLIN TRIHYD 250 MG CAPSULE PO ONE (11:30)
[2018-07-08] MEDS ORDERED: HYDROCODONE/ACETAMINOPHEN 5-325 MG (6 TAB/ER DISP) PO ONE (11:35)
--- NOTE | 2018-07-08 11:35 | ER Document Report ---
ED General - General Chief Complaint: Abdominal Pain Stated Complaint: ABDOMINAL PAIN Time Seen by Provider: 07/08/18 10:19 Primary Care Provider: SOSA VARELA DO [Primary Care Provider] - Follow up as needed Mode of Arrival: Ambulatory TRAVEL OUTSIDE OF THE [place] IN LAST 30 DAYS: No - HPI Notes: Patient is a 68-year-old female that presents to the emergency department for chief complaint of left lower quadrant abdominal pain. Patient reports extensive history of diverticulitis in the past. Yesterday she started having sharp left lower quadrant abdominal pain consistent with her diverticulitis. She denies associated nausea or vomiting. She states she has had one bowel movement with trace bright red blood in it. She states she was diaphoretic last night and believes she had a fever but did not take her temperature. Patient attempted to see her PCP today but was unable to get in which is why she came to the ER. She does have a history of perforation with partial colectomy but states that the pain does not feel as bad as it did then. She has not taken [id number] medicine for pain Past Medical History: Diabetes, hypertension, hyperlipidemia, diverticulitis Past Surgical History: Partial colectomy Social History: Denies tobacco and alcohol use Family History: Reviewed and noncontributory for presenting illness Allergies: Reviewed, see documented allergy list. REVIEW OF SYSTEMS: CONSTITUTIONAL : No fever No chills No diaphoresis No recent illness EENT: No vision changes No congestion No sore throat CARDIOVASCULAR: No chest pain No palpitations RESPIRATORY: No shortness of breath No cough No difficulty breathing GASTROINTESTINAL: abdominal pain No nausea No vomiting No diarrhea GENITOURINARY: No dysuria No hematuria No difficulty urinating MUSCULOSKELETAL: No back pain No leg pain No arm pain SKIN: No rashes No lesions LYMPHATIC: No swollen, enlarged glands. NEUROLOGICAL: No lightheadedness No headache No weakness No paresthesias PSYCHIATRIC: No anxiety No depression PHYSICAL EXAMINATION: Vital signs reviewed, nursing noted reviewed. GENERAL: Well-appearing, obese and in no acute distress. HEAD: Atraumatic, normocephalic. EYES: Eyes appear normal, extraocular movements intact, sclera anicteric, conjunctiva are normal. ENT: nares patent, oropharynx clear without exudates. Moist mucous membranes. NECK: Normal range of motion, supple without lymphadenopathy LUNGS: Breath sounds clear to auscultation bilaterally and equal. No wheezes rales or rhonchi. HEART: Regular rate and rhythm without murmurs ABDOMEN: Soft, left lower quadrant abdominal tenderness, normoactive bowel sounds. No rebound, guarding, or rigidity. No masses appreciated. EXTREMITIES: Nontender, good range of motion, no pitting or edema. NEUROLOGICAL: No focal neurological deficits. Moves all extremities spontaneously Motor and sensory grossly intact on exam. PSYCH: Normal mood, normal affect. SKIN: Warm, Dry, normal turgor, no rashes or lesions noted on exposed skin - Related Data Allergies/Adverse Reactions: codeine [Codeine] Allergy (Severe, Verified 07/08/18 09:56) stopped breathing acetaminophen [From Darvocet-N 100] Allergy (Intermediate, Verified 07/08/18 09:56) Hallucinations latex [Latex] Allergy (Intermediate, Verified 07/08/18 09:56) Hives propoxyphene HCl [From Darvon] Allergy (Intermediate, Verified 07/08/18 09:56) Hallucinations aspirin [Aspirin] Adverse Reaction (Mild, Verified 07/08/18 09:56) n/v Past Medical History - General Information source: Patient - Social History Smoking Status: Former Smoker Chew tobacco use (# tins/day): No Frequency of alcohol use: None Drug Abuse: None Family History: Reviewed & Not Pertinent, CAD, COPD, Other - Mother at age 50 due to [place]. Brother with multiple CABG. Patient has suicidal ideation: No Patient has homicidal ideation: No - Past Medical History Cardiac Medical History: Reports: Hx Coronary Artery Disease, Hx Hypercholestero lemia, Hx Hypertension Denies: Hx Heart Attack Pulmonary Medical History: Reports: Hx Asthma, Hx Bronchitis, 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 Denies: Hx Peritoneal Dialysis GI Medical History: Reports: Hx Diverticulitis, Hx Gastroesophageal Reflux Disease Musculoskeletal Medical History: Reports Hx Arthritis - LEFT KNEE Psychiatric Medical History: Reports: Hx Depression, Hx Post Traumatic Stress Disorder Past Surgical History: Reports: Hx Abdominal Surgery - resection, Hx Cardiac Catheterization, Hx Hysterectomy, Hx Orthopedic Surgery - rt knee 05/2012, Hx Tonsillectomy, Hx Tubal Ligation. Denies: Hx Pacemaker - Immunizations Immunizations up to date: Yes Hx Diphtheria, Pertussis, Tetanus Vaccination: Yes Hx Pneumococcal Vaccination: 03/01/18 Physical Exam - Vital signs Vitals: Temp Pulse Resp BP Pulse Ox 98.4 F 78 18 145/65 H 95 07/08/18 10:01 07/08/18 10:01 07/08/18 10:01 07/08/18 10:01 07/08/18 10:01 Course - Re-evaluation Re-evalutation: 07/08/18 11:34 Vitals reviewed. Nursing notes reviewed. Patient is well-appearing and in no acute distress. She has tenderness that is localized to her left lower quadrant with no peritoneal signs. I do not currently suspect perforation. Laboratory 07/08/18 07/08/18 07/08/18 10:25 10:35 10:35 WBC 7.4 RBC 4.04 Hgb 11.5 L Hct 34.6 L MCV 86 MCH 28.5 MCHC 33.3 RDW 16.4 H Plt Count 217 Seg Neutrophils % 64.2 Lymphocytes % 25.7 Monocytes % 8.1 Eosinophils % 1.5 Basophils % 0.5 Absolute Neutrophils 4.8 Absolute Lymphocytes 1.9 Absolute Monocytes 0.6 Absolute Eosinophils 0.1 Absolute Basophils 0.0 Sodium 140.7 Potassium 4.0 Chloride 100 Carbon Dioxide 28 Anion Gap 13 BUN 14 Creatinine 0.58 Est GFR ( Amer) > 60 Est GFR (Non-Af Amer) > 60 Glucose 159 H Calcium 9.4 Total Bilirubin 0.4 Direct Bilirubin 0.3 Neonat Total Bilirubin Not Reportable Neonat Direct Bilirubin Not Reportable Neonat Indirect Bili Not Reportable AST 31 ALT 36 Alkaline Phosphatase 97 Total Protein 7.4 Albumin 4.3 Urine Color YELLOW Urine Appearance CLEAR Urine pH 5.0 Ur Specific [place] 1.018 Urine Protein NEGATIVE Urine Glucose (UA) NEGATIVE Urine Ketones NEGATIVE Urine Blood NEGATIVE Urine Nitrite NEGATIVE Urine Bilirubin NEGATIVE Urine Urobilinogen NEGATIVE Ur Leukocyte Esterase TRACE H Urine WBC (Auto) 4 Urine RBC (Auto) 1 Squamous Epi Cells Auto 2 Urine Mucus (Auto) RARE Urine Ascorbic Acid NEGATIVE Lab work is unremarkable. Patient has a long history of diverticulitis and will be treated with Augmentin and Flagyl. She will follow with her primary care provider for close outpatient reevaluation. She will return to the emergency room for new or worsening symptoms. She is stable at discharge. - Vital Signs Vital signs: Temp Pulse Resp BP Pulse Ox 98.4 F 78 16 145/65 H 95 07/08/18 10:01 07/08/18 10:01 07/08/18 10:20 07/08/18 10:01 07/08/18 10:01 - Laboratory Result Diagrams: 07/08/18 10:35 07/08/18 10:35 Laboratory results interpreted by me: 07/08/18 07/08/18 07/08/18 10:25 10:35 10:35 Hgb 11.5 L Hct 34.6 L RDW 16.4 H Glucose 159 H Ur Leukocyte Esterase TRACE H Discharge - Discharge Clinical Impression: Diverticulitis Condition: Stable Disposition: HOME, SELF-CARE Instructions: Diverticulitis ([facility]) Additional Instructions: Please return to the emergency department if you have any worsening, or concern of your symptoms. Please return to the emergency department if you develop chest pain, difficulty breathing, severe abdominal pain, or ongoing vomiting. Please follow-up with your primary care physician in 2-3 days and any other recommended physicians. If prescribed, take all medications as directed. If you have any questions or concerns do not hesitate to return the emergency department for evaluation. [] Prescriptions: Amox Tr/Potassium Clavulanate [Augmentin 875-125 Tablet] 1 tab PO BID 10 Days tablet Metronidazole [Flagyl 500 mg Tablet] 500 mg PO Q6H #40 tablet Referrals: SOSA VARELA DO [Primary Care Provider] - Follow up in 3-5 days
[2018-07-08 12:39] VITALS: BP 132/72
== END 2018-07-08 12:37 | disposition home or self-care (01) ==
LOC: ER 09:55
DX: K57.92 Diverticulitis of intestine, part unspecified, without perforation or abscess without bleeding (principal); R10.32 Left lower quadrant pain; I25.10 Atherosclerotic heart disease of native coronary artery without angina pectoris; E78.00 Pure hypercholesterolemia, unspecified; I10 Essential (primary) hypertension; E11.9 Type 2 diabetes mellitus without complications; Z87.442 Personal history of urinary calculi; Z90.710 Acquired absence of both cervix and uterus; Z88.6 Allergy status to analgesic agent; Z91.040 Latex allergy status
CPT/HCPCS: 99284; 36415; 85025; 80053; 81001; A9270 ×4; J3490

== ENCOUNTER 2018-10-25 07:18 | Emergency (ER) | payer MEDICARE, MEDICAID ==
[2018-10-25] MEDS ORDERED: DIPHENHYDRAMINE HCL 25 MG CAPSULE PO ONE (09:35)
[2018-10-25] MEDS ORDERED: METOCLOPRAMIDE HCL 10 MG TABLET PO ONE (09:36)
--- NOTE | 2018-10-25 09:41 | ER Document Report ---
ED Medical Screen (RME) - General Chief Complaint: Headache Stated Complaint: HEADACHE Time Seen by Provider: 10/25/18 09:25 Primary Care Provider: SOSA VARELA DO [Primary Care Provider] - Follow up as needed Mode of Arrival: Ambulatory Information source: Patient Notes: This 68-year-old presents to the emergency department with multiple complaints. She reports that on Wednesday she started having a severe migraine. She reports she has a history of migraines. She reports her whole head hurts. She reports this is typically how her migraine presents. But her family became concerned because she had left-sided facial drooping with left eye vision issues and her left hand was hurting on Wednesday. Patient reports she has a history of mini strokes diagnosed in [place]. Patient is also diabetic with COPD and is on home oxygen. She took her normal migraine meds gabapentin along with some Tylenol and Advil and has not resolved symptoms. She reports she is nauseated also experience chest pain that comes and goes with shortness of breath. No obvious neuro deficits noted at this time. Patient reports her whole head hurts with palpation. I have greeted and performed a rapid initial assessment of this patient. A comprehensive ED assessment and evaluation of the patient, analysis of test results and completion of the medical decision making process will be conducted by additional ED providers. Dictation of this chart was performed using voice recognition software; therefore, there may be some unintended grammatical errors. TRAVEL OUTSIDE OF THE [place] IN LAST 30 DAYS: No - Related Data Allergies/Adverse Reactions: codeine [Codeine] Allergy (Severe, Verified 07/08/18 09:56) stopped breathing acetaminophen [From Darvocet-N 100] Allergy (Intermediate, Verified 07/08/18 09:56) Hallucinations latex [Latex] Allergy (Intermediate, Verified 07/08/18 09:56) Hives propoxyphene HCl [From Darvon] Allergy (Intermediate, Verified 07/08/18 09:56) Hallucinations aspirin [Aspirin] Adverse Reaction (Mild, Verified 07/08/18 09:56) n/v Past Medical History - Social History Chew tobacco use (# tins/day): No Frequency of alcohol use: None Drug Abuse: None Family history: Reviewed & Not Pertinent - Past Medical History Cardiac Medical History: Reports: Hx Coronary Artery Disease, Hx Hypercholester olemia, Hx Hypertension Denies: Hx Heart Attack Pulmonary Medical History: Reports: Hx Asthma, Hx Bronchitis, 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 Denies: Hx Peritoneal Dialysis GI Medical History: Reports: Hx Diverticulitis, Hx Gastroesophageal Reflux Disease Musculoskeltal Medical History: Reports Hx Arthritis - LEFT KNEE Psychiatric Medical History: Reports: Hx Depression, Hx Post Traumatic Stress Disorder Past Surgical History: Reports: Hx Abdominal Surgery - resection, Hx Cardiac Catheterization, Hx Hysterectomy, Hx Orthopedic Surgery - rt knee 05/2012, Hx Tonsillectomy, Hx Tubal Ligation. Denies: Hx Pacemaker - Immunizations Immunizations up to date: Yes Hx Diphtheria, Pertussis, Tetanus Vaccination: Yes History of Influenza Vaccine for 11/2016 - 04/2017 Season: Refused Physical Exam - Vital signs Vitals: Temp Pulse Resp BP Pulse Ox 98.0 F 80 20 178/74 H 95 10/25/18 07:25 10/25/18 07:25 10/25/18 07:25 10/25/18 07:25 10/25/18 07:25 Course - Vital Signs Vital signs: Temp Pulse Resp BP Pulse Ox 98.0 F 80 20 178/74 H 95 10/25/18 07:25 10/25/18 07:25 10/25/18 07:25 10/25/18 07:25 10/25/18 07:25 Doctor's Discharge - Discharge Referrals: SOSA VARELA DO [Primary Care Provider] - Follow up as needed
--- NOTE | 2018-10-25 11:22 | RADIOLOGY REPORT (SQ) ---
EXAM DESCRIPTION: CHEST 2 VIEWS COMPLETED DATE/TIME: 10/25/2018 11:13 am REASON FOR STUDY: cp COMPARISON: 04/04/2018 EXAM PARAMETERS: NUMBER OF VIEWS: two views TECHNIQUE: Digital Frontal and Lateral radiographic views of the chest acquired. RADIATION DOSE: NA LIMITATIONS: none FINDINGS: LUNGS AND PLEURA: No opacities, masses or pneumothorax. No pleural effusion. MEDIASTINUM AND HILAR STRUCTURES: No masses or contour abnormalities. HEART AND VASCULAR STRUCTURES: Heart normal size. No evidence for failure. Aortic atherosclerosis. BONES: No acute findings. HARDWARE: None in the chest. OTHER: No other significant finding. IMPRESSION: No evidence of acute cardiopulmonary process. TECHNICAL DOCUMENTATION: JOB ID: [id number] [employer]- All Rights Reserved Reading location - IP/workstation name: [email or web address]
--- NOTE | 2018-10-25 12:29 | ER Document Report ---
ED General - General Chief Complaint: Headache Stated Complaint: HEADACHE Time Seen by Provider: 10/25/18 09:25 Primary Care Provider: SOSA VARELA DO [Primary Care Provider] - Follow up as needed Mode of Arrival: Ambulatory Notes: Patient is here with complaint of a severe headache since Wednesday. She says that she has been "fighting it" without relief. It waxes and wanes, but never goes away entirely. Family members told her Wednesday that they noted drooping of her left face, but the patient says that she does not see the droop. Her headache is located at the top of her head, from the ears up bilaterally. She has a history of migraine headaches and had a lot of problems with those headaches 7 or 8 years ago, but had not had had very many headaches since then. She is still on gabapentin 3 times a day for migraine headaches. She noticed some drainage from her eyes and some blurry vision. Nausea since yesterday, but no vomiting.. Patient has a history of COPD secondary to fume inhalant Patient also says that she has pain in her left hand anytime she tries to chart picker anything since April. Also complaining of pain in bilateral inguinal regions for longer than that. Patient is not on any blood thinner medications. Was advised to take aspirin but does not take it. Also suffers from depression. NIDDM, GERD, and high cholesterol. TRAVEL OUTSIDE OF THE [place] IN LAST 30 DAYS: No - Related Data Allergies/Adverse Reactions: codeine [Codeine] Allergy (Severe, Verified 07/08/18 09:56) stopped breathing acetaminophen [From Darvocet-N 100] Allergy (Intermediate, Verified 07/08/18 09:56) Hallucinations latex [Latex] Allergy (Intermediate, Verified 07/08/18 09:56) Hives propoxyphene HCl [From Darvon] Allergy (Intermediate, Verified 07/08/18 09:56) Hallucinations aspirin [Aspirin] Adverse Reaction (Mild, Verified 07/08/18 09:56) n/v Past Medical History - General Information source: Patient - Social History Smoking Status: Never Smoker Chew tobacco use (# tins/day): No Frequency of alcohol use: None Drug Abuse: None Family History: Reviewed & Not Pertinent, CAD, COPD, Other - Mother at age 50 due to [place]. Brother with multiple CABG. Patient has suicidal ideation: No Patient has homicidal ideation: No - Past Medical History Cardiac Medical History: Reports: Hx Coronary Artery Disease, Hx Hypercholesterolemia, Hx Hypertension Denies: Hx Heart Attack Pulmonary Medical History: Reports: Hx Asthma, Hx Bronchitis, 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 Denies: Hx Peritoneal Dialysis GI Medical History: Reports: Hx Diverticulitis, Hx Gastroesophageal Reflux Disease Musculoskeletal Medical History: Reports Hx Arthritis - LEFT KNEE Psychiatric Medical History: Reports: Hx Depression, Hx Post Traumatic Stress Disorder Past Surgical History: Reports: Hx Abdominal Surgery - resection, Hx Cardiac Catheterization, Hx Hysterectomy, Hx Orthopedic Surgery - rt knee 05/2012, Hx Tonsillectomy, Hx Tubal Ligation. Denies: Hx Pacemaker - Immunizations Immunizations up to date: Yes Hx Diphtheria, Pertussis, Tetanus Vaccination: Yes Hx Pneumococcal Vaccination: 03/01/18 Review of Systems - Review of Systems Constitutional: denies: Fever EENT: Blurred vision. denies: Eye pain Cardiovascular: denies: Chest pain Respiratory: denies: Cough, Short of breath, Stridor Gastrointestinal: Nausea. denies: Vomiting, Constipation Genitourinary: No symptoms reported Female Genitourinary: No symptoms reported Musculoskeletal: denies: Back pain Skin: denies: Rash Hematologic/Lymphatic: denies: Blood clots Neurological/Psychological: Headaches. denies: Confusion, Seizure, Lost consciousness -: Yes All other systems reviewed and negative Physical Exam - Vital signs Vitals: Temp Pulse Resp BP Pulse Ox 98.0 F 80 20 178/74 H 95 10/25/18 07:25 10/25/18 07:25 10/25/18 07:25 10/25/18 07:25 10/25/18 07:25 Interpretation: Normal, Hypertensive - mild - General General appearance: Alert, Anxious. No: Lethargic In distress: Mild - HEENT Head: Normocephalic Eyes: Normal Extraocular movements intact: Yes Pupils: PERRL Nerve palsy: No - no facial assymetry Neck: Normal, Supple, Other - no bruits neck - Respiratory Respiratory status: No respiratory distress Chest status: Nontender Breath sounds: Normal Chest palpation: Normal - Cardiovascular Rhythm: Regular - Abdominal Inspection: Normal Bowel sounds: Normal Tenderness: Nontender - Neurological Neuro grossly intact: Yes Cognition: Normal Orientation: AAOx4 Leanne Coma Scale Eye Opening: Spontaneous Leanne Coma Scale Verbal: Oriented Leanne Coma Scale Motor: Obeys Commands [place] Coma Scale Total: 15 Speech: Normal Motor strength normal: LUE, RUE, LLE, RLE Sensory: Normal - Psychological Associated symptoms: Normal affect, Normal mood, Anxious - Skin Skin Temperature: Warm Skin Moisture: Dry Skin Color: Normal Irregularity with: Other - no rash. negative: Swelling Course - Re-evaluation Re-evalutation: 10/25/18 14:35 Patient says her headache has improved although it still there. She is only had Benadryl and Reglan p.o. CT scan was negative. Patient does have a stable meningioma that she says was diagnosed 10 or 12 years ago. All the patient's lab work is unremarkable. I do not know if the patient had a mini stroke that recovered, a quickly recovered Candelaria's palsy, or some other source for her facial weakness that was observed by family, but it looks normal to me at this time. I am recommending the patient start back taking a baby aspirin daily. - Vital Signs Vital signs: Temp Pulse Resp BP Pulse Ox 98.0 F 80 29 H 150/76 H 94 10/25/18 07:25 10/25/18 07:25 10/25/18 14:00 10/25/18 14:00 10/25/18 14:00 - Laboratory Result Diagrams: 10/25/18 12:23 10/25/18 12:23 Laboratory results interpreted by me: 10/25/18 10/25/18 12:23 12:23 Hgb 11.9 L RDW 16.5 H AST 61 H Total Protein 8.3 H Discharge - Discharge Clinical Impression: Migraine headache, TIA (transient ischemic attack) Condition: Stable Disposition: HOME, SELF-CARE Additional Instructions: HEADACHE: The physician does not feel that the headache you are experiencing has a serious underlying cause. Most headaches are due to emotional stress, with resultant muscle tension (tension headache). Occasionally, headaches are s econdary to changes in the blood vessels of the scalp (vascular headache and migraine headache). Sometimes, a headache is the first symptom of another developing illness, such as a viral infection. You have no evidence of stroke, bleeding, meningitis, or other serious cause of your headache. The treatment of headaches varies with the severity and cause of the pain. Not all headaches need pain shots. In fact, there is evidence that using narcotics for headaches may make them worse in the long run. The physician will determine the therapy that's in your best interest. If you develop a fever, if the headache is different from any you've previously experienced, or if the headache progressively worsens, then call your physician at once or go to the emergency room. NORMAL EXAM AND WORKUP: At this time, your examination and workup show no significant abnormality. No significant abnormal physical findings were noted. All laboratory, EKG, and imaging (x-ray, CT scans, ultrasound) studies that were ordered show no significant abnormality. Although your examination and all studies that were ordered showed no significant abnormal finding, there are no examinations and no studies that are 100% accurate. There is always the possibility that some abnormality could e xist and not be detected with physical examination or within the limits and capabilities of laboratory and other studies. You should return or follow up as you were instructed on your visit today for further evaluation if your symptoms do not resolve. REGLAN (METOCLOPRAMIDE): Reglan has been prescribed. This medicine affects the stomach and intestines. It can be used to treat nausea and vomiting, to prevent reflux of stomach acid up into the esophagus, or to increase the contractions of the stomach and intestines. It is often prescribed for esophagitis, and for paralysis of the stomach in diabetics. Reglan can cause either mild restlessness or drowsiness. You should con tact the doctor at once if you become extremely restless, anxious, or cannot sleep, or if you develop uncontrollable motions of the lips, tongue, or jaw. Do not take alcohol with this medicine. Do not drive or operate machinery until you have been taking this medicine long enough to know how it affects you. Call the doctor if you develop abdominal pains, lightheadedness, black stool, or blood in the stool or vomitus. USE OF DIPHENHYDRAMINE: Diphenhydramine (Benadryl) is an antihistamine and has been recommended to help treat your headache and to prevent side effects of other medications used to treat headaches. The medication can be repeated four times daily. Age Elixir (12.5 mg/tsp) 25 mg pill adult 1-2 tabs Antihistamines may cause drowsiness, especially with the first dose. Do not operate machinery or drive while under the effects of the medication. Do not combine the medication with alcohol, or with any other medication without talking to your doctor. ANTINAUSEA MEDICATION: You have been given a medication to suppress nausea and vomiting. This type of medication can be given as a shot, pill, or suppository. It will usually last for many hours. Pills and shots usually last six to eight hours, suppositories last about 12 hours. For the typical illness, only one or two doses of the medication may be necessary. Mild lightheadedness may occur. This type of medicine can cause drowsiness. Do not drive or operate dangerous machinery while under its influence. Do not mix with alcohol. See your doctor at once if you have muscle spasms or tightness, or uncontrollable motions (particularly of the neck, mouth, or jaw). Persistent vomiting or severe lightheadedness should also be evaluated by the physician. Aspirin Aspirin has been shown to have a beneficial effect on blood circulation by reducing the clotting effect of platelets in the blood. These beneficial effects can be achieved by taking just a single baby (62.5 mg) aspirin a day. It is recommended that any person over the age of forty take a single baby aspirin every day for heart and brain circulation, unless you are allergic to aspirin or have some significant bleeding disorder. It is strongly recommended that people who have proven cardiac or blood circulation disturbances should take a baby aspirin every day. You should resume taking a baby aspirin daily. FOLLOW-UP CARE: If you have been referred to a physician for follow-up care, call the physici ans office for an appointment as you were instructed or within the next two days. If you experience worsening or a significant change in your symptoms, notify the physician immediately or return to the Emergency Department at any time for re-evaluation. Prescriptions: Metoclopramide HCl [Reglan 10 mg Tablet] 1 - 2 tab PO ASDIR PRN #25 tablet PRN Reason: Referrals: SOSA VARELA DO [Primary Care Provider] - Follow up as needed
[2018-10-25 12:39] LABS: ABSOLUTE BASOPHILS # (AUTO) 0.1 10^3/uL (0.0-0.2); ABSOLUTE EOSINOPHILS # (AUTO) 0.2 10^3/uL (0.0-0.6); ABSOLUTE LYMPHOCYTES (AUTO) 2.3 10^3/uL (0.5-4.7); ABSOLUTE MONOCYTES (AUTO) 0.4 10^3/uL (0.1-1.4); ABSOLUTE NEUT (AUTO) 3.3 10^3/uL (1.7-8.2); BASOPHILS % (AUTO) 0.9 % (0-2); EOSINOPHILS % (AUTO) 3.4 % (0-6); HEMATOCRIT 36.5 % (36.0-47.0); HEMOGLOBIN 11.9 g/dL (12.0-15.5); LYMPHOCYTES % (AUTO) 36.8 % (13-45); MEAN CORPUSCULAR HEMOGLOBIN 27.6 pg (27.0-33.4); MEAN CORPUSCULAR HGB CONC 32.5 g/dL (32.0-36.0); MEAN CORPUSCULAR VOLUME 85 fl (80-97); MONOCYTES % (AUTO) 6.4 % (3-13); PLATELET COUNT 202 10^3/uL (150-450); RED BLOOD COUNT 4.29 10^6/uL (3.72-5.28); RED CELL DISTRIBUTION WIDTH 16.5 % (11.5-14.0); SEGMENTED NEUTROPHILS % (AUTO) 52.5 % (42-78); TOTAL CELLS COUNTED % (AUTO) 100 %; WHITE BLOOD COUNT 6.2 10^3/uL (4.0-10.5)
[2018-10-25 12:47] LABS: INTERNATIONAL RATION (INR) 1.04; PROTHROMBIN TIME 13.6 SEC (11.4-15.4)
[2018-10-25 12:48] LABS: PARTIAL THROMBOPLASTIN TIME 26.9 SEC (23.5-35.8)
--- NOTE | 2018-10-25 12:51 | RADIOLOGY REPORT (SQ) ---
EXAM DESCRIPTION: CT HEAD WITHOUT COMPLETED DATE/TIME: 10/25/2018 12:35 pm REASON FOR STUDY: Headache COMPARISON: 05/24/2018 TECHNIQUE: Axial images acquired through the brain without intravenous contrast. Images reviewed wi th bone, brain and subdural windows. Additional sagittal and coronal reconstructions were generated. Images stored on PACS. All CT scanners at this facility use dose modulation, iterative reconstruction, and/or weight based d osing when appropriate to reduce radiation dose to as low as reasonably achievable (ALARA). [facility]: Dose Right [facility]: CareDose [facility]: Dose Right [facility]: Teradose 4D [facility]: Smart Navitell RADIATION DOSE: mGy. LIMITATIONS: None. FINDINGS: VENTRICLES: Normal size and contour. CEREBRUM: Stable partially calcified meningioma along the right falx. No hemorrhage. No midline jamil ft. No evidence of infarction. Few scattered areas of low density in the white matter most likely ch ronic small vessel ischemic changes. CEREBELLUM: No masses. No hemorrhage. No alteration of density. No evidence for acute infarction. EXTRAAXIAL SPACES: No fluid collections. No masses. ORBITS AND GLOBE: No intra- or extraconal masses. Normal contour of globe without masses. CALVARIUM: No fracture. PARANASAL SINUSES: No fluid or mucosal thickening. SOFT TISSUES: No mass or hematoma. OTHER: No other significant finding. IMPRESSION: Mild chronic microvascular ischemia. No acute intracranial imaging findings. Stable ri ght falcine meningioma. EVIDENCE OF ACUTE STROKE: NO. COMMENT: Quality ID # [id number]: Final reports with documentation of one or more dose reduction techniques (e.g., Automated exposure control, adjustment of the mA and/or kV according to patient size, use of iterative reconstruction technique) TECHNICAL DOCUMENTATION: JOB ID: [id number] [employer]- All Rights Reserved Reading location - IP/workstation name: [email or web address]
[2018-10-25 13:13] LABS: ALBUMIN 4.6 g/dL (3.5-5.0); ALKALINE PHOSPHATASE 104 U/L (38-126); ANION GAP 10 (5-19); ASPARTATE AMINO TRANSFERASE 61 U/L (14-36); BILIRUBIN,DIRECT 0.3 mg/dL (0.0-0.4); BILIRUBIN,TOTAL 0.4 mg/dL (0.2-1.3); BLOOD UREA NITROGEN 18 mg/dL (7-20); CALCIUM 9.6 mg/dL (8.4-10.2); CARBON DIOXIDE 30 mmol/L (22-30); CHLORIDE 99 mmol/L (98-107); CREATINE KINASE 87 U/L (30-135); GLUCOSE 103 mg/dL (75-110); POTASSIUM 4.1 mmol/L (3.6-5.0); TOTAL PROTEIN 8.3 g/dL (6.3-8.2)
[2018-10-25 14:44] VITALS: BP 150/76
--- NOTE | 2018-10-25 19:06 | EKG REPORT ---
SEVERITY:- BORDERLINE ECG - SINUS RHYTHM BORDERLINE T ABNORMALITIES, ANT-LAT LEADS : Confirmed by: Christiano Hernandez MD 25-Oct-2018 19:05:17
== END 2018-10-25 14:52 | disposition home or self-care (01) ==
LOC: ER 07:18
DX: G43.909 Migraine, unspecified, not intractable, without status migrainosus (principal); G45.9 Transient cerebral ischemic attack, unspecified; H53.8 Other visual disturbances; R11.0 Nausea; J44.9 Chronic obstructive pulmonary disease, unspecified; M79.642 Pain in left hand; E11.9 Type 2 diabetes mellitus without complications; I25.10 Atherosclerotic heart disease of native coronary artery without angina pectoris; I10 Essential (primary) hypertension
CPT/HCPCS: 93005; 99284; 36415; 82550; 85025; 85610; 85730; 80053; 84484; 71046; 70450; 93010; A9270 ×2

== ENCOUNTER 2019-02-18 10:30 | Emergency (ER) | payer MEDICARE, MEDICAID ==
--- NOTE | 2019-02-18 11:20 | RADIOLOGY REPORT (SQ) ---
EXAM DESCRIPTION: ANKLE LEFT COMPLETE COMPLETED DATE/TIME: 02/18/2019 11:06 am REASON FOR STUDY: left ankle pain after a fall COMPARISON: None. NUMBER OF VIEWS: Three views. TECHNIQUE: AP, lateral, and oblique radiographic images acquired of the left ankle. LIMITATIONS: None. FINDINGS: MINERALIZATION: Normal. BONES: No acute fracture or dislocation. No worrisome bone lesions. JOINTS: No effusions. SOFT TISSUES: No soft tissue swelling. No foreign body. OTHER: No other significant finding. IMPRESSION: NEGATIVE STUDY OF THE LEFT ANKLE. NO RADIOGRAPHIC EVIDENCE OF ACUTE INJURY. TECHNICAL DOCUMENTATION: JOB ID: [id number] [employer]- All Rights Reserved Reading location - IP/workstation name: [email or web address]
--- NOTE | 2019-02-18 12:17 | ER Document Report ---
ED Extremity Problem, Lower - General Chief Complaint: Ankle Pain Stated Complaint: FALL/ANKLE INJURY Time Seen by Provider: 02/18/19 11:36 Primary Care Provider: RADHA DOBBINS JR, DO [ACTIVE PROVISIONAL STAFF] - Follow up as needed SOSA VARELA DO [Primary Care Provider] - Follow up as needed Mode of Arrival: Wheelchair Information source: Patient Notes: 68-year-old female presented to ED for complaint of pain to the left lateral ankle and foot. She states she twisted her ankle and then fell down 2 or 3 stairs. She states she did hit the right knee but it does not hurt at all the only thing that is hurting at this time is her left ankle. The x-ray did not show any bony injuries to the ankle. We will treat her with Arno wrap stirrup splint given instructions on elevation and ice with a prescription for naproxen. TRAVEL OUTSIDE OF THE [place] IN LAST 30 DAYS: No - HPI Patient complains to provider of: Injury, Pain, Swelling Location: Ankle, Foot Occurred: This morning Where: Home Onset/Duration: Sudden Quality of pain: Sharp Severity: Moderate Pain Level: 4 Context: Twisted Recent injury: Yes Associated symptoms: Painful ambulation Exacerbated by: Hanging down, Movement, Walking Relieved by: Elevation, Ice, Rest - Related Data Allergies/Adverse Reactions: codeine [Codeine] Allergy (Severe, Verified 07/08/18 09:56) stopped breathing acetaminophen [From Darvocet-N 100] Allergy (Intermediate, Verified 07/08/18 09:56) Hallucinations latex [Latex] Allergy (Intermediate, Verified 07/08/18 09:56) Hives propoxyphene HCl [From Darvon] Allergy (Intermediate, Verified 07/08/18 09:56) Hallucinations aspirin [Aspirin] Adverse Reaction (Mild, Verified 07/08/18 09:56) n/v Past Medical History - General Information source: Patient - Social History Smoking Status: Never Smoker Chew tobacco use (# tins/day): No Frequency of alcohol use: None Drug Abuse: None Lives with: Family Family History: Reviewed & Not Pertinent, CAD, COPD, Other - Mother at age 50 due to [place]. Brother with multiple CABG. 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, Hx Pneumonia - ABOUT A YEAR AGO, Hx Sleep Apnea Neurological Medical History: Reports: None Endocrine Medical History: Reports: Hx Diabetes Mellitus Type 2 Renal/ Medical History: Reports: Hx Kidney Stones GI Medical History: Reports: Hx Diverticulitis, Hx Gastroesophageal Reflux Disease, Hx Colonoscopy, Hx Endoscopy Musculoskeletal Medical History: Reports Hx Arthritis - LEFT KNEE, Reports Hx Musculoskeletal Trauma Skin Medical History: Reports None Psychiatric Medical History: Reports: Hx Depression, Hx Post Traumatic Stress Disorder Traumatic Medical History: Reports: Hx Fractures Infectious Medical History: Reports: None Past Surgical History: Reports: Hx Abdominal Surgery - resection, Hx Cardiac Catheterization, Hx Hysterectomy, Hx Orthopedic Surgery - rt knee 05/2012, Hx Tonsillectomy, Hx Tubal Ligation. Denies: Hx Pacemaker - Immunizations Immunizations up to date: Yes Hx Diphtheria, Pertussis, Tetanus Vaccination: Yes Hx Pneumococcal Vaccination: 03/01/18 Review of Systems - Review of Systems Constitutional: No symptoms reported EENT: No symptoms reported Cardiovascular: No symptoms reported Respiratory: No symptoms reported Gastrointestinal: No symptoms reported Genitourinary: No symptoms reported Female Genitourinary: No symptoms reported Musculoskeletal: Leg swelling, Ankle swelling Skin: No symptoms reported Hematologic/Lymphatic: No symptoms reported Neurological/Psychological: No symptoms reported -: Yes All other systems reviewed and negative Physical Exam - Vital signs Vitals: Temp Pulse Resp BP Pulse Ox 98.0 F 84 18 155/77 H 93 02/18/19 10:34 02/18/19 10:34 02/18/19 10:34 02/18/19 10:34 02/18/19 10:34 Interpretation: Normal - General General appearance: Appears well, Alert - HEENT Head: Normocephalic, Atraumatic Eyes: Normal Pupils: PERRL - Respiratory Respiratory status: No respiratory distress Chest status: Nontender Breath sounds: Normal Chest palpation: Normal - Cardiovascular Rhythm: Regular Heart sounds: Normal auscultation Murmur: No - Abdominal Inspection: Normal Distension: No distension Bowel sounds: Normal Tenderness: Nontender Organomegaly: No organomegaly - Back Back: Normal, Nontender - Extremities General upper extremity: Normal inspection, Nontender, Normal color, Normal ROM, Normal temperature General lower extremity: Normal color, Normal temperature, Normal weight bearing. No: Becky's sign Ankle: Tender, Ecchymosis, Edema, Limited ROM - Pain. No: Abrasion, Deformity, Instability, Laceration, Positive Terrazas's test, Unable to bear weight, Other Foot: Tender, Ecchymosis, Edema, No evidence of FB. No: Instability, Laceration, Metatarsal compress. pain, Nail injury, Navicular tenderness, Puncture wound, Tender 5th metatarsal - Neurological Neuro grossly intact: Yes Cognition: Normal Orientation: AAOx4 Leanne Coma Scale Eye Opening: Spontaneous [place] Coma Scale Verbal: Oriented Leanne Coma Scale Motor: Obeys Commands Leanne Coma Scale Total: 15 Speech: Normal Motor strength normal: LUE, RUE, LLE, RLE Sensory: Normal - Psychological Associated symptoms: Normal affect, Normal mood - Skin Skin Temperature: Warm Skin Moisture: Dry Skin Color: Normal Course - Re-evaluation Re-evalutation: 02/18/19 13:21 The patient is nontoxic appearing with stable vitals. They are afebrile. Ankle exam shows no deformities with no obvious ligament instability. There is a normal pulse and sensation distally. There is no redness or signs of infection. X-rays show no acute fracture per the radiologist. Patient will be placed in an posterior ankle. Crutches will be offered and given if requested. Patient will be instructed to follow-up with not better in 1 week, sooner for increasing pain, fever, redness, numbness, tingling, weakness, any further concerns. Patient will be instructed to rest, ice, elevate their ankle. 02/18/19 13:22 - Vital Signs Vital signs: Temp Pulse Resp BP Pulse Ox 97.8 F 76 17 145/63 H 92 02/18/19 12:57 02/18/19 12:57 02/18/19 12:57 02/18/19 12:57 02/18/19 12:57 - Diagnostic Test Radiology reviewed: Image reviewed, Reports reviewed Procedures - Immobilization Left Ankle Time completed: 12:55 Immobilizer type: Posterior ankle Performed by: PCT Post-Proc Neuro Vasc Exam: Normal Alignment checked and good: Yes Discharge - Discharge Clinical Impression: Left ankle sprain Qualifiers: Encounter type: initial encounter Involved ligament of ankle: unspecified ligament Qualified Code(s): S93.402A - Sprain of unspecified ligament of left ankle, initial encounter Condition: Stable Disposition: HOME, SELF-CARE Additional Instructions: SPRAIN: Your injury is a sprain. A sprain results from stretching or tearing of the ligaments, usually from a twisting injury. The ligaments will require time and protection in order to heal properly. Many sprains are quite disabling and should be taken seriously. The usual initial treatment of sprains is cold packs, elevation, and rest of the injured area. Your physician has assessed the seriousness of your ligament injury, and has outlined a treatment plan. Understand that this treatment may change, depending on how you progress. If a re-examination was recommended, it is important that you follow up as instructed. Call the doctor any time if there is severe pain, numbness, or loss of function in the injured area. SPLINT PRECAUTIONS: A splint has been placed. This will protect the area while healing begins. Your problem does NOT normally require a cast. It MUST, however, be held still! Keep the splint on ALL THE TIME until instructed to remove it by the doctor. As you begin to use the area, be careful. You shouldn't do anything which causes discomfort -- you may disturb the injury even with the splint in place. After the initial period of rest and elevation, if splint does not prevent pain when you move, come back. You may require placement of a different splint, or a cast. If there is unexpected severe pain, or numbness, discoloration, or swelling beyond the splint, you should return at once. If you feel that the splint has broken or become loose, come back. ICE & ELEVATION: Apply ice packs frequently against the painful area. Many different schedules are recommended, such as "20 minutes on, 20 minutes off" or "one hour ice, two hours rest." If you need to work, you may need to go longer between ice treatments. You should plan to have the area ice packed AT LEAST one-fourth of the time. The ice should be applied over the wrap, tape, or splint, or over a layer of cloth -- not directly against the skin. Some ice bags have a built-in cloth and can be put directly on the skin. Your injured part should be elevated as much as possible over the next 48 hours. Try to keep the injury above the level of the heart. Avoid use of the injured area. Elevation and rest will decrease the swelling. Anti-Inflammatory Medication You have received a prescription for an antiinflammatory agent. This is an excellent, safe drug for pain control. In addition, it has potent antiinflammatory effects which are beneficial, especially in the treatment of injuries, arthritis, or tendonitis. It's best to take this medicine with food. Persons with ulcer disease or allergy to aspirin should notify their physician of this before taking this drug. Take the medication exactly as prescribed. Don't take additional doses unless instructed to do so by your doctor. If you develop wheezing, shortness of breath, hives, faintness, stomach pain, vomiting, or dark black stools, return for re-evaluation at once. FOLLOW-UP CARE: If you have been referred to a physician for follow-up care, call the physicians office for an appointment as you were instructed or within the next two days. If you experience worsening or a significant change in your symptoms, notify the physician immediately or return to the Emergency Department at any time for re-evaluation. Prescriptions: Naproxen 500 mg PO BID #14 tablet Forms: Special Work Note, Return to Work Referrals: SOSA VARELA DO [Primary Care Provider] - Follow up as needed RADHA DOBBINS JR, DO [ACTIVE PROVISIONAL STAFF] - Follow up as needed
[2019-02-18 12:59] VITALS: BP 145/63
== END 2019-02-18 13:00 | disposition home or self-care (01) ==
LOC: ER 10:30
DX: S93.402A Sprain of unspecified ligament of left ankle, initial encounter (principal); W10.9XXA Fall (on) (from) unspecified stairs and steps, initial encounter; E78.00 Pure hypercholesterolemia, unspecified; I10 Essential (primary) hypertension; E11.9 Type 2 diabetes mellitus without complications; Z87.442 Personal history of urinary calculi; Z88.6 Allergy status to analgesic agent; Z91.040 Latex allergy status
CPT/HCPCS: 99283

== ENCOUNTER 2019-03-15 10:24 | Observation (INO) | payer MEDICARE, MEDICAID ==
[2019-03-15] MEDS ORDERED: NORMAL SALINE 500 ML IV PRN (10:55)
--- NOTE | 2019-03-15 10:59 | ER Document Report ---
ED Medical Screen (RME) - General Chief Complaint: Abdominal Pain Stated Complaint: LOWER ABDOMINAL PAIN/FEVER Time Seen by Provider: 03/15/19 10:45 Primary Care Provider: SOSA VARELA DO [Primary Care Provider] - Follow up as needed Notes: Patient is 69-year-old female who presents emergency department with a chief complaint of left lower abdominal pain. She started off with diarrhea 5 days ago and states that she has had diarrhea nonstop. Her abdominal pain started yesterday. She states that it feels similar to her diverticulitis. Exam: Limited due to patient sitting in wheelchair. Tenderness to left lower quadrant. I have greeted and performed a rapid initial assessment of this patient. A comprehensive ED assessment and evaluation of the patient, analysis of test results and completion of medical decision making process will be conducted by an additional ED providers. TRAVEL OUTSIDE OF THE [place] IN LAST 30 DAYS: No - Related Data Allergies/Adverse Reactions: codeine [Codeine] Allergy (Severe, Verified 07/08/18 09:56) stopped breathing acetaminophen [From Darvocet-N 100] Allergy (Intermediate, Verified 07/08/18 09:56) Hallucinations latex [Latex] Allergy (Intermediate, Verified 07/08/18 09:56) Hives propoxyphene HCl [From Darvon] Allergy (Intermediate, Verified 07/08/18 09:56) Hallucinations aspirin [Aspirin] Adverse Reaction (Mild, Verified 03/15/19 10:45) n/v Past Medical History - Social History Family history: Reviewed & Not Pertinent - Past Medical History Cardiac Medical History: Reports: Hx Coronary Artery Disease, Hx Hypercholesterolemia, Hx Hypertension Denies: Hx Heart Attack Pulmonary Medical History: Reports: Hx Asthma, Hx Bronchitis, 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 Denies: Hx Peritoneal Dialysis GI Medical History: Reports: Hx Diverticulitis, Hx Gastroesophageal Reflux Disease, Hx Colonoscopy, Hx Endoscopy Musculoskeltal Medical History: Reports Hx Arthritis - LEFT KNEE, Reports Hx Musculoskeletal Trauma Psychiatric Medical History: Reports: Hx Depression, Hx Post Traumatic Stress Disorder Traumatic Medical History: Reports: Hx Fractures Past Surgical History: Reports: Hx Abdominal Surgery - resection, Hx Cardiac Catheterization, Hx Hysterectomy, Hx Orthopedic Surgery - rt knee 05/2012, Hx Tonsillectomy, Hx Tubal Ligation. Denies: Hx Pacemaker - Immunizations Immunizations up to date: Yes Hx Diphtheria, Pertussis, Tetanus Vaccination: Yes Physical Exam - Vital signs Vitals: Temp Pulse Resp BP Pulse Ox 98.5 F 87 20 116/85 97 03/15/19 10:30 03/15/19 10:30 03/15/19 10:30 03/15/19 10:30 03/15/19 10:30 Course - Vital Signs Vital signs: Temp Pulse Resp BP Pulse Ox 98.5 F 87 20 116/85 97 03/15/19 10:30 03/15/19 10:30 03/15/19 10:30 03/15/19 10:30 03/15/19 10:30 Doctor's Discharge - Discharge Referrals: SOSA VARELA DO [Primary Care Provider] - Follow up as needed
[2019-03-15 11:31] LABS: HEMOGLOBIN 10.7 g/dL (12.0-15.5); MEAN CORPUSCULAR HEMOGLOBIN 29.1 pg (27.0-33.4); MEAN CORPUSCULAR HGB CONC 34.5 g/dL (32.0-36.0); MEAN CORPUSCULAR VOLUME 84 fl (80-97); PLATELET COUNT 194 10^3/uL (150-450); RED BLOOD COUNT 3.67 10^6/uL (3.72-5.28); WHITE BLOOD COUNT 8.7 10^3/uL (4.0-10.5)
[2019-03-15 11:46] LABS: APPEARANCE,URINE CLEAR; BILIRUBIN,URINE NEGATIVE (NEGATIVE); COLOR,URINE YELLOW; GLUCOSE, URINE 150 mg/dL (NEGATIVE); KETONES,URINE NEGATIVE (NEGATIVE); LEUKOCYTE ESTERASE,URINE NEGATIVE (NEGATIVE); NITRITE,URINE NEGATIVE (NEGATIVE); PROTEIN,URINE NEGATIVE (NEGATIVE); URINE SPECIFIC GRAVITY 1.018; UROBILINOGEN,URINE NEGATIVE mg/dL (<2.0)
[2019-03-15 11:50] LABS: ALBUMIN 4.6 g/dL (3.5-5.0); ALKALINE PHOSPHATASE 84 U/L (38-126); ANION GAP 11 (5-19); ASPARTATE AMINO TRANSFERASE 33 U/L (14-36); BILIRUBIN,DIRECT 0.3 mg/dL (0.0-0.4); BILIRUBIN,TOTAL 0.5 mg/dL (0.2-1.3); BLOOD UREA NITROGEN 25 mg/dL (7-20); CALCIUM 10.1 mg/dL (8.4-10.2); CARBON DIOXIDE 29 mmol/L (22-30); CHLORIDE 101 mmol/L (98-107); GLUCOSE 130 mg/dL (75-110); POTASSIUM 4.3 mmol/L (3.6-5.0); TOTAL PROTEIN 7.8 g/dL (6.3-8.2)
--- NOTE | 2019-03-15 12:52 | RADIOLOGY REPORT (SQ) ---
EXAM DESCRIPTION: CT ABD/PELVIS WITH IV ONLY COMPLETED DATE/TIME: 03/15/2019 12:33 pm REASON FOR STUDY: LLQ abd pain; hx diverticulitis COMPARISON: 07/04/2017. TECHNIQUE: CT scan of the abdomen and pelvis performed using helical scanning technique with dynamic intravenous contrast injection. No oral contrast. Images reviewed with lung, soft tissue, and bone windows. Reconstructed coronal and sagittal MPR images reviewed. Delayed images for evaluation of the urinary system also acquired. All images stored on PACS. All CT scanners at this facility use dose modulation, iterative reconstruction, and/or weight based d osing when appropriate to reduce radiation dose to as low as reasonably achievable (ALARA). [facility]: Dose Right [facility]: CareDose [facility]: Dose Right [facility]: Teradose 4D [facility]: [employer] CONTRAST TYPE AND DOSE: contrast/concentration: Isovue 350.00 mg/ml; Total Contrast Delivered: 100.0 ml; Total Saline Delivered: 38.8 ml RENAL FUNCTION: BUN 25 creatinine 0.83. RADIATION DOSE: CT Rad equipment meets quality standard of care and radiation dose reduction techniq ues were employed. CTDIvol: 20.2 - 21.1 mGy. DLP: 2325 mGy-cm.. LIMITATIONS: None. FINDINGS: LOWER CHEST: No significant findings. No nodules or infiltrates. LIVER: Normal size. No masses. No dilated ducts. SPLEEN: Normal size. No focal lesions. PANCREAS: No masses. No significant calcifications. No adjacent inflammation or peripancreatic fluid collections. Pancreatic duct not dilated. GALLBLADDER: No identified stones by CT criteria. No inflammatory changes to suggest cholecystitis. ADRENAL GLANDS: No significant masses or asymmetry. RIGHT KIDNEY AND URETER: No solid masses. No significant calcifications. No hydronephrosis or hyd roureter. LEFT KIDNEY AND URETER: No solid masses. No significant calcifications. No hydronephrosis or hydr oureter. AORTA AND VESSELS: No aneurysm. No dissection. Renal arteries, SMA, celiac without stenosis. RETROPERITONEUM: No retroperitoneal adenopathy, hemorrhage or masses. BOWEL AND PERITONEAL CAVITY: Diverticuli in the descending and sigmoid colon. Surgical changes in th e sigmoid colon. Mild focal inflammatory changes adjacent to the sigmoid colon. No fluid collection . No free fluid or peritoneal masses. APPENDIX: Normal. PELVIS: No mass. No free fluid. Normal bladder. ABDOMINAL WALL: No masses. Small umbilical hernia containing fat. BONES: No significant or acute findings. OTHER: No other significant finding. IMPRESSION: 1. EARLY ACUTE SIGMOID DIVERTICULITIS. NO EVIDENCE OF ABSCESS. 2. NO OTHER SIGNIFICANT OR ACUTE FINDING IN THE ABDOMEN OR PELVIS ON CT SCAN WITH IV CONTRAST. TECHNICAL DOCUMENTATION: JOB ID: [id number] Quality ID # [id number]: Final reports with documentation of one or more dose reduction techniques (e.g., Au tomated exposure control, adjustment of the mA and/or kV according to patient size, use of iterative reconstruction technique) 2010 [employer]- All Rights Reserved Reading location - IP/workstation name: [email or web address]
--- NOTE | 2019-03-15 13:40 | ER Document Report ---
ED GI/ - General Chief Complaint: Abdominal Pain Stated Complaint: LOWER ABDOMINAL PAIN/FEVER Time Seen by Provider: 03/15/19 10:45 Primary Care Provider: SOSA VARELA DO [Primary Care Provider] - Follow up as needed Notes: Patient is a 69-year-old female with a history of COPD who is oxygen dependent on 3 L nasal cannula, diverticulitis, obesity, type 2 diabetes, TIA, hypertension, high cholesterol presents to the emergency department with a chief complaint of diarrhea. Patient reports having diarrhea for the past 5 weeks. Patient reports every time she attempts to eat she has an episode of diarrhea. Patient denies blood in the stool. Patient reports yesterday developing left lower quadrant pain. Patient reports this does feel like her previous episodes of diverticulitis. Patient reports nausea without vomiting. Patient reports yesterday she had a temperature orally of 100.3. Patient reports she does have a history of a bowel perforation with a partial colectomy about 10 years ago. Patient does not currently have a colostomy. TRAVEL OUTSIDE OF THE [place] IN LAST 30 DAYS: No - Related Data Allergies/Adverse Reactions: codeine [Codeine] Allergy (Severe, Verified 03/15/19 11:21) stopped breathing acetaminophen [From Darvocet-N 100] Allergy (Intermediate, Verified 03/15/19 11:21) Hallucinations latex [Latex] Allergy (Intermediate, Verified 03/15/19 11:21) Hives propoxyphene HCl [From Darvon] Allergy (Intermediate, Verified 03/15/19 11:21) Hallucinations aspirin [Aspirin] Adverse Reaction (Mild, Verified 03/15/19 11:21) n/v Past Medical History - General Information source: Patient, Relative - Social History Smoking Status: Never Smoker Frequency of alcohol use: None Drug Abuse: None Lives with: Family Family History: Reviewed & Not Pertinent, CAD, COPD, Other - Mother at age 50 due to [place]. Brother with multiple CABG. Patient has suicidal ideation: No Patient has homicidal ideation: No - Past Medical History Cardiac Medical History: Reports: Hx Coronary Artery Disease, Hx Hypercholesterolemia, Hx Hypertension Denies: Hx Heart Attack Pulmonary Medical History: Reports: Hx Asthma, Hx Bronchitis, Hx COPD - "very close to having it", secondary to diesel fume exposure, Hx Pneumonia - ABOUT A YEAR AGO, Hx Sleep Apnea Denies: Hx Tuberculosis EENT Medical History: Reports: None Neurological Medical History: Reports: None. Denies: Hx Cerebrovascular Accident, Hx Seizures Endocrine Medical History: Reports: Hx Diabetes Mellitus Type 2 Renal/ Medical History: Reports: Hx Kidney Stones. Denies: Hx Peritoneal Dialysis Malignancy Medical History: Reports: None GI Medical History: Reports: Hx Diverticulitis, Hx Gastroesophageal Reflux Disease, Hx Colonoscopy, Hx Endoscopy Musculoskeletal Medical History: Reports Hx Arthritis - LEFT KNEE, Reports Hx Musculoskeletal Trauma Skin Medical History: Reports None Psychiatric Medical History: Reports: Hx Depression, Hx Post Traumatic Stress Disorder Traumatic Medical History: Reports: Hx Fractures Infectious Medical History: Reports: None Past Surgical History: Reports: Hx Abdominal Surgery - resection, Hx Cardiac Cat heterization, Hx Hysterectomy, Hx Orthopedic Surgery - rt knee 05/2012, Hx Tonsillectomy, Hx Tubal Ligation. Denies: Hx Pacemaker - Immunizations Immunizations up to date: Yes Hx Diphtheria, Pertussis, Tetanus Vaccination: Yes Hx Pneumococcal Vaccination: 03/01/18 Review of Systems - Review of Systems Constitutional: See HPI EENT: No symptoms reported Cardiovascular: No symptoms reported Respiratory: No symptoms reported Gastrointestinal: See HPI Genitourinary: No symptoms reported Female Genitourinary: No symptoms reported Musculoskeletal: No symptoms reported Skin: No symptoms reported Hematologic/Lymphatic: No symptoms reported Neurological/Psychological: No symptoms reported Physical Exam - Vital signs Vitals: Temp Pulse Resp BP Pulse Ox 98.5 F 87 20 116/85 97 03/15/19 10:30 03/15/19 10:30 03/15/19 10:30 03/15/19 10:30 03/15/19 10:30 Interpretation: Normal - Notes Notes: GENERAL: Well-appearing, well-nourished and in no acute distress. HEAD: Atraumatic, normocephalic. EYES: Pupils equal round and reactive to light, extraocular movements intact, sclera anicteric, conjunctiva are normal. ENT: Nares patent, oropharynx clear without exudates. Moist mucous membranes. NECK: Normal range of motion, supple without lymphadenopathy or JVD. LUNGS: Breath sounds clear to auscultation bilaterally and equal. No wheezes ra les or rhonchi. HEART: Regular rate and rhythm without murmurs, rubs or gallops. ABDOMEN: Soft, obese, generalized lower abdominal tenderness worse in llq, hyperactive bowel sounds. No guarding, no rebound. No masses appreciated. BACK: No cervical, thoracic, lumbar midline tenderness. No saddle anesthesia, normal distal neurovascular exam. GENITOURINARY: Deferred. EXTREMITIES: Normal range of motion, no pitting or edema. No clubbing or cyanosis. NEUROLOGICAL: Cranial nerves II through XII grossly intact. Normal speech, normal gait. PSYCH: Normal mood, normal affect. SKIN: Warm, Dry, normal turgor, no rashes or lesions noted. Course - Re-evaluation Re-evalutation: 03/15/19 13:39 Upon initial exam patient is sitting upright on stretcher. Patient appears uncomfortable with intermittent facial grimacing. Patient reports that she is having generalized lower abdominal pain that is worse in the left lower quadrant. Patient is receiving a 500 cc bolus of saline but has not received anything for her pain. Will administer IV pain medication. Patient's blood work does not show significant leukocytosis. Patient does have sigmoid diverticulitis that is present on the CAT scan without perforation or abscess. Patient's initial vital signs do not reveal a fever, tachycardia or hypotension. Will repeat vital signs. 03/15/19 13:47 Patient reports that she has had morphine in the past and tolerated well. Will initially start out with 2 mg of morphine IV as the patient does appear uncomfortable on the stretcher. We will also give a small dose of antinausea medication. 03/15/19 14:21 Patient did receive dose of morphine. Patient reports as long she does not move on the stretcher that she does not have pain but as soon as she attempts to move or reposition herself she does have severe pain. Will call to get the patient admitted to the hospitalist service for uncontrolled pain, acute diverticulitis with multiple comorbidities. 03/15/19 15:30 Dr. Blackwood to admit to hospital for pain control. Patient/family updated and made aware. - Vital Signs Vital signs: Temp Pulse Resp BP Pulse Ox 98.2 F 80 18 158/74 H 99 03/15/19 14:00 03/15/19 14:00 03/15/19 14:00 03/15/19 14:00 03/15/19 14:00 - Laboratory Result Diagrams: 03/15/19 11:15 03/15/19 11:15 Laboratory results interpreted by me: 03/15/19 03/15/1903/15/20 10:45 11:15 11:15 RBC 3.67 L Hgb 10.7 L Hct 31.0 L RDW 16.0 H BUN 25 H Glucose 130 H Urine Glucose (UA) 150 H 03/15/19 13:37 Patient blood work does not show a significant leukocytosis. Patient is slightly anemic with a hemoglobin of 10.7. Patient does not have an alteration her electrolytes or kidney function. Patient has normal liver enzymes. Patient's urinalysis unremarkable with slight signs of infection to include leukocytes, WBCs or nitrites. Laboratory 03/15/19 03/15/19 03/15/19 10:45 11:15 11:15 WBC 8.7 RBC 3.67 L Hgb 10.7 L Hct 31.0 L MCV 84 MCH 29.1 MCHC 34.5 RDW 16.0 H Plt Count 194 Sodium 140.9 Potassium 4.3 Chloride 101 Carbon Dioxide 29 Anion Gap 11 BUN 25 H Creatinine 0.83 Est GFR ( Amer) > 60 Est GFR (MDRD) Non-Af > 60 Glucose 130 H Calcium 10.1 Total Bilirubin 0.5 Direct Bilirubin 0.3 Neonat Total Bilirubin Not Reportable Neonat Direct Bilirubin Not Reportable Neonat Indirect Bili Not Reportable AST 33 ALT 29 Alkaline Phosphatase 84 Total Protein 7.8 Albumin 4.6 Urine Color YELLOW Urine Appearance CLEAR Urine pH 6.0 Ur Specific [place] 1.018 Urine Protein NEGATIVE Urine Glucose (UA) 150 H Urine Ketones NEGATIVE Urine Blood NEGATIVE Urine Nitrite NEGATIVE Urine Bilirubin NEGATIVE Urine Urobilinogen NEGATIVE Ur Leukocyte Esterase NEGATIVE Urine WBC (Auto) 1 Urine RBC (Auto) 0 Squamous Epi Cells Auto 1 Urine Mucus (Auto) RARE Urine Ascorbic Acid NEGATIVE - Diagnostic Test Radiology reviewed: Reports reviewed Radiology results interpreted by me: 03/15/19 13:37 Abdomen/Pelvis CT 03/15/19 10:54 IMPRESSION: 1. EARLY ACUTE SIGMOID DIVERTICULITIS. NO EVIDENCE OF ABSCESS. 2. NO OTHER SIGNIFICANT OR ACUTE FINDING IN THE ABDOMEN OR PELVIS ON CT SCAN WITH IV CONTRAST. Discharge - Discharge Clinical Impression: Diverticulitis, Lower abdominal pain, Nausea Diarrhea Qualifiers: Diarrhea type: unspecified type Qualified Code(s): R19.7 - Diarrhea, unspecified Condition: Stable Disposition: ADMITTED OBSERVATION Admitting Provider: Jaison (Hospitalist) Unit Admitted: Medical Floor Referrals: SOSA VARELA DO [Primary Care Provider] - Follow up as needed
[2019-03-15] MEDS ORDERED: METOCLOPRAMIDE HCL INJ/PF 10 MG/2 ML SDV IV ONE (13:47)
[2019-03-15] MEDS ORDERED: MORPHINE SULFATE 10 MG/ML INJ IV ONE (13:47)
[2019-03-15] MEDS ORDERED: ONDANSETRON HCL INJ/PF 4 MG/2 ML SDV IV ONE (13:53)
[2019-03-15] MEDS ORDERED: IPRATROPIUM/ALBUTEROL 0.5-2.5 MG/3 ML AMPUL NEB PRN (15:21)
[2019-03-15] MEDS ORDERED: PROMETHAZINE HCL INJ 25 MG/1 ML VIAL IV PRN (15:21)
[2019-03-15] MEDS ORDERED: ONDANSETRON HCL INJ/PF 4 MG/2 ML SDV IV PRN (15:21)
[2019-03-15] MEDS ORDERED: MORPHINE SULFATE 10 MG/ML INJ IV PRN ×3 (15:24)
[2019-03-15] MEDS ORDERED: HYDRALAZINE HCL 10 MG TABLET PO PRN (15:26)
[2019-03-15] MEDS ORDERED: METOPROLOL TARTRATE PF/INJ 5 MG/5 ML SDV IV PRN (15:26)
[2019-03-15] MEDS ORDERED: GLUCAGON,HUMAN RECOMB 1 MG INJ IM PRN (15:27)
[2019-03-15] MEDS ORDERED: DEXTROSE 40% GEL 15 GM TUBE PO PRN ×2 (15:27)
[2019-03-15] MEDS ORDERED: DEXTROSE 50%-WATER 25 GM/50 ML DISP.SYRIN IV PRN ×2 (15:27)
--- NOTE | 2019-03-15 15:42 | PDOC H&P ---
History of Present Illness Admission Date/PCP: SOSA VARELA DO History of Present Illness: JOYCELYN HOLLOWAY is a 69 year old female past medical history of oxygen dependent COPD, diabetes, hypertension, chronic diarrhea, diverticulitis status post partial left colectomy several years ago taken to ED complaining of weakness severe left lower quadrant abdominal pain x1 day. Left lower quadrant abdominal pain, 5/5 on intensity scale, sharp, radiating medially over the hypogastrium, worse with movement, better with staying still, associated with nausea, subjective fever. Denies any recent travel, sick contact, denies any shortness of breath, chest pain, vomiting, headache, vision changes, orthopnea, paroxysmal nocturnal dyspnea, lower extremity swelling, or urinary symptoms. Of note patient has chronic diarrhea for which she takes metronidazole and is stating that she has not noted any changes in her chronic diarrhea. In ED CBC CMP WNL however CT abdomen showed left lower quadrant early stage diverticulitis. Past Medical History Cardiac Medical History: Reports: Coronary Artery Disease, Hyperlipidema, Hypertension Denies: Myocardial Infarction Pulmonary Medical History: Reports: Asthma, Bronchitis, Chronic Obstructive Pulmonary Disease (COPD) - "very close to having it", secondary to diesel fume e xposure, Pneumonia - ABOUT A YEAR AGO, Sleep Apnea Denies: Tuberculosis EENT Medical History: Reports: None Neurological Medical History: Reports: None Denies: Seizures Endocrine Medical History: Reports: Diabetes Mellitus Type 2 Malignancy Medical History: Reports: None GI Medical History: Reports: Diverticulitis, Gastroesophageal Reflux Disease Musculoskeltal Medical History: Reports: Arthritis - LEFT KNEE Skin Medical History: Reports: None Psychiatric Medical History: Reports: Depression, Post Traumatic Stress Disorder Hematology: Denies: Anemia Infectious Medical History: Reports: None Past Surgical History Past Surgical History: Reports: Cardiac Catheterization, Hysterectomy, Orthopedic Surgery - rt knee 05/2012, Tonsillectomy, Tubal Ligation Denies: Pacemaker Social History Lives with: Family Smoking Status: Never Smoker Frequency of Alcohol Use: None Hx Recreational Drug Use: No Drugs: None Hx Prescription Drug Abuse: No Family History Family History: Reviewed & Not Pertinent, CAD, COPD, Other - Mother at age 50 due to [place]. Brother with multiple CABG. Parental Family History Reviewed: Yes Children Family History Reviewed: Yes Sibling(s) Family History Reviewed.: Yes Medication/Allergy Home Medications: Albuterol Sulfate [Ventolin Hfa] 2 puff IH Q6HP PRN 10/14/17 Duloxetine HCl [Cymbalta] 90 mg PO DAILY 10/14/17 Levothyroxine Sodium [Synthroid 0.1 mg Tablet] 0.1 mg PO Q6AM 10/14/17 Metformin HCl [Metformin HCl ER] 1,500 mg PO DAILY 10/14/17 Omeprazole 40 mg PO DAILY 10/14/17 Trazodone HCl [Desyrel 50 mg Tablet] 50 mg PO QHS MDD 100 MG 10/14/17 Calcium Carbonate [Calcium] 500 mg PO DAILY 04/04/18 Lisinopril/Hydrochlorothiazide [Lisinopril-Hctz 20-25 mg Tab] 1 each PO DAILY 04/04/18 Potassium 99 mg PO QHS 04/04/18 Amlodipine Besylate [Norvasc 5 mg Tablet] 5 mg PO DAILY 03/15/19 Budesonide/Formoterol Fumarate [Symbicort Hfa 160-4.5 Mcg Inhaler 6 gm] 2 puff IH Q12 03/15/19 Gabapentin [Neurontin 300 mg Capsule] 300 mg PO DAILY 03/15/19 Gabapentin [Neurontin 300 mg Capsule] 900 mg PO QHS 03/15/19 Glimepiride 2 mg PO DAILY 03/15/19 Glimepiride 4 mg PO QPM 03/15/19 Lorazepam 0.5 mg PO Q12HP PRN 03/15/19 Magnesium Oxide [Mag-Ox 400 mg Tablet] 400 mg PO DAILY 03/15/19 Rosuvastatin Calcium [Crestor] 40 mg PO QHS 03/15/19 Allergies/Adverse Reactions: codeine [Codeine] Allergy (Severe, Verified 03/15/19 11:21) stopped breathing acetaminophen [From Darvocet-N 100] Allergy (Intermediate, Verified 03/15/19 11:21) Hallucinations latex [Latex] Allergy (Intermediate, Verified 03/15/19 11:21) Hives propoxyphene HCl [From Darvon] Allergy (Intermediate, Verified 03/15/19 11:21) Hallucinations aspirin [Aspirin] Adverse Reaction (Mild, Verified 03/15/19 11:21) n/v Physical Exam Vital Signs: Temp Pulse Resp BP Pulse Ox 98.2 F 80 18 158/74 H 99 03/15/19 14:00 03/15/19 14:00 03/15/19 14:00 03/15/19 14:00 03/15/19 14:00 Intake & Output 03/14/19 03/15/19 03/16/19 06:59 06:59 06:59 Intake Total 500 Balance 500 Weight 111.7 kg General appearance: PRESENT: morbidly obese Head exam: PRESENT: atraumatic, normocephalic Respiratory exam: PRESENT: clear to auscultation vicky. ABSENT: rales, rhonchi, wheezes Cardiovascular exam: PRESENT: RRR. ABSENT: diastolic murmur, rubs, systolic murmur GI/Abdominal exam: PRESENT: distended, guarding, normal bowel sounds, tenderness - Left lower quadrant. ABSENT: mass, organolmegaly, rebound Neurological exam: PRESENT: alert, awake, oriented to person, oriented to place, oriented to time, oriented to situation, CN II-XII grossly intact. ABSENT: motor sensory deficit Results Laboratory Results: 03/15/19 11:15 03/15/19 11:15 03/15/19 03/15/19 03/15/19 10:45 11:15 11:15 WBC 8.7 RBC 3.67 L Hgb 10.7 L Hct 31.0 L MCV 84 MCH 29.1 MCHC 34.5 RDW 16.0 H Plt Count 194 Sodium 140.9 Potassium 4.3 Chloride 101 Carbon Dioxide 29 Anion Gap 11 BUN 25 H Creatinine 0.83 Est GFR ( Amer) > 60 Glucose 130 H Calcium 10.1 Total Bilirubin 0.5 AST 33 Alkaline Phosphatase 84 Total Protein 7.8 Albumin 4.6 Urine Color YELLOW Urine Appearance CLEAR Urine pH 6.0 Ur Specific [place] 1.018 Urine Protein NEGATIVE Urine Glucose (UA) 150 H Urine Ketones NEGATIVE Urine Blood NEGATIVE Urine Nitrite NEGATIVE Ur Leukocyte Esterase NEGATIVE Urine WBC (Auto) 1 Urine RBC (Auto) 0 Impressions: Abdomen/Pelvis CT 03/15/19 10:54 IMPRESSION: 1. EARLY ACUTE SIGMOID DIVERTICULITIS. NO EVIDENCE OF ABSCESS. 2. NO OTHER SIGNIFICANT OR ACUTE FINDING IN THE ABDOMEN OR PELVIS ON CT SCAN WITH IV CONTRAST. Assessment and Plan - Diagnosis (1) Diverticulitis Is this a current diagnosis for this admission?: Yes Plan: Based on CT abdomen pelvis and physical finding. CT abdomen positive for early acute sigmoid diverticulitis. No evidence of abscess. Afebrile, WBC WNL, CMP WNL. Admit to floor, opioid and non-opioid analgesics, empiric IV antibiotics, blood culture, supportive measures. (2) Lower abdominal pain Is this a current diagnosis for this admission?: Yes Plan: Most likely tomorrow. Plan as per 1. (3) Chronic diarrhea Is this a current diagnosis for this admission?: Yes Plan: History of chronic diarrhea of several years duration. Takes metronidazole at home. Monitor volume status and electrolyte replace as needed. Restart home meds upon discharge. Outpatient gastroenterology follow-up. (4) Hypertension Qualifiers: Is this a current diagnosis for this admission?: Yes Plan: Euvolemic. Restart home meds. PRN IV hydralazine metoprolol. Adjust meds instead. (5) Obesity Qualifiers: Body mass index: BMI 45.0-49.9 Is this a current diagnosis for this admission?: Yes Plan: Diet and lifestyle modification recommended. Likely a bariatric intervention candidate. (6) Obstructive sleep apnea Is this a current diagnosis for this admission?: Yes Plan: Weight loss recommended. Nocturnal CPAP. Outpatient pulmonology and PCP follow-up. (7) Type 2 diabetes mellitus Qualifiers: Diabetes mellitus terminal carman insulin use: with terminal carman use Chronic kidney disease stage: stage 2 (mild) Is this a current diagnosis for this admission?: Yes Plan: Diabetic diet, prandial, basal, and correctional insulin, hypoglycemic protocol, Accu-Chek. Restart home meds upon discharge. Adjust meds as needed.
[2019-03-15] MEDS: INSULIN LISPRO 100 UNIT/ML 3 ML VIAL SUBCUT SCH ×2 (16:30→21:35)
[2019-03-15] MEDS: NORMAL SALINE 1000 ML 1,000 ML IV PRN (16:30)
[2019-03-15] MEDS: LEVOFLOXACIN 750 MG/D5W RTU 750 MG/150 ML RTUPB IV SCH (16:32)
[2019-03-15] MEDS: ENOXAPARIN SODIUM INJ 40 MG/0.4 ML DISP.SYRIN SUBCUT SCH (16:39)
[2019-03-15] MEDS: PANTOPRAZOLE SODIUM 40 MG TABLET.DR PO SCH (16:43)
[2019-03-15] MEDS ORDERED: LORAZEPAM 0.5 MG TABLET PO PRN (17:09)
[2019-03-15] MEDS ORDERED: KETOROLAC TROMETHAMINE INJ/PF 30 MG/1 ML SDV IV PRN (20:28)
[2019-03-15] MEDS: GABAPENTIN 300 MG CAPSULE PO SCH (21:36)
[2019-03-15] MEDS: TRAZODONE HCL 50 MG TABLET PO SCH (21:36)
[2019-03-16 05:22] LABS: ABSOLUTE EOSINOPHILS # (AUTO) 0.2 10^3/uL (0.0-0.6); ABSOLUTE LYMPHOCYTES (AUTO) 1.6 10^3/uL (0.5-4.7); ABSOLUTE MONOCYTES (AUTO) 0.4 10^3/uL (0.1-1.4); ABSOLUTE NEUT (AUTO) 3.3 10^3/uL (1.7-8.2); BASOPHILS % (AUTO) 0.7 % (0-2); HEMOGLOBIN 9.2 g/dL (12.0-15.5); LYMPHOCYTES % (AUTO) 28.5 % (13-45); MEAN CORPUSCULAR HGB CONC 34.1 g/dL (32.0-36.0); MEAN CORPUSCULAR VOLUME 85 fl (80-97); MONOCYTES % (AUTO) 7.7 % (3-13); PLATELET COUNT 158 10^3/uL (150-450); RED BLOOD COUNT 3.17 10^6/uL (3.72-5.28); SEGMENTED NEUTROPHILS % (AUTO) 60.1 % (42-78); TOTAL CELLS COUNTED % (AUTO) 100 %; WHITE BLOOD COUNT 5.6 10^3/uL (4.0-10.5)
[2019-03-16 05:45] LABS: ALBUMIN 3.5 g/dL (3.5-5.0); ALKALINE PHOSPHATASE 69 U/L (38-126); ANION GAP 10 (5-19); ASPARTATE AMINO TRANSFERASE 25 U/L (14-36); BILIRUBIN,DIRECT 0.2 mg/dL (0.0-0.4); BILIRUBIN,TOTAL 0.3 mg/dL (0.2-1.3); BLOOD UREA NITROGEN 22 mg/dL (7-20); CALCIUM 8.6 mg/dL (8.4-10.2); CARBON DIOXIDE 25 mmol/L (22-30); CHLORIDE 104 mmol/L (98-107); GLUCOSE 86 mg/dL (75-110); POTASSIUM 4.3 mmol/L (3.6-5.0); TOTAL PROTEIN 6.6 g/dL (6.3-8.2)
[2019-03-16] MEDS: NORMAL SALINE 1000 ML 1,000 ML IV PRN (06:25)
[2019-03-16] MEDS: LEVOTHYROXINE SODIUM 0.1 MG TABLET PO SCH (06:25)
[2019-03-16] MEDS: PANTOPRAZOLE SODIUM 40 MG TABLET.DR PO SCH ×2 (06:25→17:52)
[2019-03-16] MEDS ORDERED: MAGNESIUM SULFATE 4 GM/D5W 100 ML IV ONE (07:30)
[2019-03-16] MEDS: INSULIN LISPRO 100 UNIT/ML 3 ML VIAL SUBCUT SCH ×4 (07:40→21:03)
[2019-03-16] MEDS: ENOXAPARIN SODIUM INJ 40 MG/0.4 ML DISP.SYRIN SUBCUT SCH (09:24)
[2019-03-16] MEDS: AMLODIPINE BESYLATE 5 MG TABLET PO SCH (09:25)
[2019-03-16] MEDS: MAGNESIUM OXIDE 400 MG TABLET PO SCH (09:25)
[2019-03-16] MEDS: CALCIUM CARBONATE 500 MG TABLET PO SCH (09:25)
[2019-03-16] MEDS: DULOXETINE HCL 30 MG CAPSULE.DR PO SCH (09:25)
[2019-03-16] MEDS: GABAPENTIN 300 MG CAPSULE PO SCH ×2 (09:25→21:05)
[2019-03-16] MEDS: FLUTICASONE/VILANTEROL 200-25 MCG/DOSE IH SCH (09:26)
[2019-03-16] MEDS ORDERED: ONDANSETRON HCL INJ/PF 4 MG/2 ML SDV IV PRN (11:30)
--- NOTE | 2019-03-16 11:43 | PDOC PROGRESS REPORT ---
Subjective Progress Note for:: 03/16/19 Subjective:: JOYCELYN HOLLOWAY is a 69 year old female past medical history of oxygen dependent COPD, diabetes, hypertension, chronic diarrhea, diverticulitis status post partial left colectomy several years ago taken to ED complaining of weakness severe left lower quadrant abdominal pain x1 day. Left lower quadrant abdominal pain, 5/5 on intensity scale, sharp, radiating medially over the hypogastrium, worse with movement, better with staying still, associated with nausea, subjective fever. Denies any recent travel, sick contact, denies any shortness of breath, chest pain, vomiting, headache, vision changes, orthopnea, paroxysmal nocturnal dyspnea, lower extremity swelling, or urinary symptoms. Of note patient has chronic diarrhea for which she takes metronidazole and is stating that she has not noted any changes in her chronic diarrhea. In ED CBC CMP WNL however CT abdomen showed left lower quadrant early stage diverticulitis. 03/16/2019. No acute events overnight. Left lower quadrant abdominal pain improving still complaining of constant left lower quadrant abdominal pain 3/4 was with movement. Denies any fever, chills, nausea, vomiting, chest pain, co nstipation or any urinary symptoms. Reason For Visit: ACUTE DIVERTICULITIS, ABDOMINAL PAIN Physical Exam Vital Signs: Temp Pulse Resp BP Pulse Ox 97.9 F 79 18 146/65 H 93 03/16/19 10:59 03/16/19 10:59 03/16/19 10:59 03/16/19 10:59 03/16/19 10:59 Intake & Output 03/15/19 03/16/19 03/17/19 06:59 06:59 06:59 Intake Total 2170 Balance 2170 Weight 107.5 kg General appearance: PRESENT: morbidly obese Head exam: PRESENT: atraumatic, normocephalic Respiratory exam: PRESENT: clear to auscultation vicky. ABSENT: rales, rhonchi, wheezes Cardiovascular exam: PRESENT: RRR. ABSENT: diastolic murmur, rubs, systolic murmur GI/Abdominal exam: PRESENT: distended, guarding, normal bowel sounds, tenderness - Left lower quadrant. ABSENT: mass, organolmegaly, rebound Neurological exam: PRESENT: alert, awake, oriented to person, oriented to place, oriented to time, oriented to situation, CN II-XII grossly intact. ABSENT: motor sensory deficit Results Laboratory Results: 03/16/19 04:13 03/16/19 04:13 03/15/19 03/15/19 03/16/19 10:45 11:15 04:13 WBC 5.6 RBC 3.17 L Hgb 9.2 L Hct 27.0 L MCV 85 MCH 29.0 MCHC 34.1 RDW 16.0 H Plt Count 158 Seg Neutrophils % 60.1 Sodium 140.9 Potassium 4.3 Chloride 101 Carbon Dioxide 29 Anion Gap 11 BUN 25 H Creatinine 0.83 Est GFR ( Amer) > 60 Glucose 130 H Calcium 10.1 Magnesium Total Bilirubin 0.5 AST 33 Alkaline Phosphatase 84 Total Protein 7.8 Albumin 4.6 Urine Color YELLOW Urine Appearance CLEAR Urine pH 6.0 Ur Specific [place] 1.018 Urine Protein NEGATIVE Urine Glucose (UA) 150 H Urine Ketones NEGATIVE Urine Blood NEGATIVE Urine Nitrite NEGATIVE Ur Leukocyte Esterase NEGATIVE Urine WBC (Auto) 1 Urine RBC (Auto) 0 03/16/19 04:13 WBC RBC Hgb Hct MCV MCH MCHC RDW Plt Count Seg Neutrophils % Sodium 139.1 Potassium 4.3 Chloride 104 Carbon Dioxide 25 Anion Gap 10 BUN 22 H Creatinine 0.75 Est GFR ( Amer) > 60 Glucose 86 Calcium 8.6 Magnesium 1.1 L* Total Bilirubin 0.3 AST 25 Alkaline Phosphatase 69 Total Protein 6.6 Albumin 3.5 Urine Color Urine Appearance Urine pH Ur Specific [place] Urine Protein Urine Glucose (UA) Urine Ketones Urine Blood Urine Nitrite Ur Leukocyte Esterase Urine WBC (Auto) Urine RBC (Auto) Impressions: Abdomen/Pelvis CT 03/15/19 10:54 IMPRESSION: 1. EARLY ACUTE SIGMOID DIVERTICULITIS. NO EVIDENCE OF ABSCESS. 2. NO OTHER SIGNIFICANT OR ACUTE FINDING IN THE ABDOMEN OR PELVIS ON CT SCAN WITH IV CONTRAST. Assessment and Plan - Diagnosis (1) Diverticulitis Is this a current diagnosis for this admission?: Yes Plan: Based on CT abdomen pelvis and physical finding. CT abdomen positive for early acute sigmoid diverticulitis. No evidence of abscess. Afebrile, WBC WNL, CMP WNL. Admit to floor, opioid and non-opioid analgesics, empiric IV antibiotics, blood culture, supportive measures. (2) Lower abdominal pain Is this a current diagnosis for this admission?: Yes Plan: Most likely tomorrow. Plan as per 1. (3) Chronic diarrhea Is this a current diagnosis for this admission?: Yes Plan: History of chronic diarrhea of several years duration. Takes metronidazole at home. Monitor volume status and electrolyte replace as needed. Restart home meds upon discharge. Outpatient gastroenterology follow-up. (4) Hypertension Qualifiers: Is this a current diagnosis for this admission?: Yes Plan: Euvolemic. Restart home meds. PRN IV hydralazine metoprolol. Adjust meds instead. (5) Obesity Qualifiers: Body mass index: BMI 45.0-49.9 Is this a current diagnosis for this admission?: Yes Plan: Diet and lifestyle modification recommended. Likely a bariatric intervention candidate. (6) Obstructive sleep apnea Is this a current diagnosis for this admission?: Yes Plan: Weight loss recommended. Nocturnal CPAP. Outpatient pulmonology and PCP follow-up. (7) Type 2 diabetes mellitus Qualifiers: Diabetes mellitus [facility] insulin use: with terminal gauger use Chronic kidney disease stage: stage 2 (mild) Is this a current diagnosis for this admission?: Yes Plan: Diabetic diet, prandial, basal, and correctional insulin, hypoglycemic protocol, Accu-Chek. Restart home meds upon discharge. Adjust meds as needed.
[2019-03-16] MEDS ORDERED: (PENDING PHARMACY ID) (Lisinopril/Hydrochlorothiazide [Lisinopril-Hctz 20-25 Mg Tab] 1 EAC PO SCH (11:45)
[2019-03-16] MEDS: HYDROCHLOROTHIAZIDE 25 MG TABLET PO SCH (12:47)
[2019-03-16] MEDS: LISINOPRIL 10 MG TABLET PO SCH (12:47)
[2019-03-16] MEDS: LEVOFLOXACIN 750 MG/D5W RTU 750 MG/150 ML RTUPB IV SCH (17:54)
[2019-03-16] MEDS: TRAZODONE HCL 50 MG TABLET PO SCH (21:05)
[2019-03-17] MEDS: PANTOPRAZOLE SODIUM 40 MG TABLET.DR PO SCH (05:11)
[2019-03-17] MEDS: LEVOTHYROXINE SODIUM 0.1 MG TABLET PO SCH (05:11)
[2019-03-17] MEDS: INSULIN LISPRO 100 UNIT/ML 3 ML VIAL SUBCUT SCH ×2 (07:59→13:15)
[2019-03-17] MEDS ORDERED: DIPHENHYDRAMINE HCL 50 MG/ML VIAL IV ONE (08:41)
[2019-03-17] MEDS: FLUTICASONE/VILANTEROL 200-25 MCG/DOSE IH SCH (09:44)
[2019-03-17] MEDS: DULOXETINE HCL 30 MG CAPSULE.DR PO SCH (09:52)
[2019-03-17] MEDS: CALCIUM CARBONATE 500 MG TABLET PO SCH (09:52)
[2019-03-17] MEDS: HYDROCHLOROTHIAZIDE 25 MG TABLET PO SCH (09:53)
[2019-03-17] MEDS: MAGNESIUM OXIDE 400 MG TABLET PO SCH (09:53)
[2019-03-17] MEDS: LISINOPRIL 10 MG TABLET PO SCH (09:53)
[2019-03-17] MEDS: GABAPENTIN 300 MG CAPSULE PO SCH (09:53)
[2019-03-17] MEDS: ENOXAPARIN SODIUM INJ 40 MG/0.4 ML DISP.SYRIN SUBCUT SCH (09:54)
[2019-03-17] MEDS: AMLODIPINE BESYLATE 5 MG TABLET PO SCH (09:54)
[2019-03-17 13:13] VITALS: BP 150/65
--- NOTE | 2019-03-18 13:52 | PDOC DISCHARGE SUMMARY ---
Impression - Admit/DC Date/PCP Admission Date/Primary Care Provider: 03/15/19 15:41 SOSA VARELA DO Discharge Date: 03/17/19 - Discharge Diagnosis (1) Diverticulitis Is this a current diagnosis for this admission?: Yes (2) Lower abdominal pain Is this a current diagnosis for this admission?: Yes (3) Chronic diarrhea Is this a current diagnosis for this admission?: Yes (4) Hypertension Is this a current diagnosis for this admission?: Yes (5) Obesity Is this a current diagnosis for this admission?: Yes (6) Obstructive sleep apnea Is this a current diagnosis for this admission?: Yes (7) Type 2 diabetes mellitus Is this a current diagnosis for this admission?: Yes (8) COPD (chronic obstructive pulmonary disease) Is this a current diagnosis for this admission?: Yes - Additional Information Resuscitation Status: Full Code Discharge Diet: As Tolerated, Regular Discharge Activity: Activity As Tolerated Referrals: SOSA VARELA DO [Primary Care Provider] - 03/28/19 4:00 pm (REFERRAL NEEDED [facility] ) Prescriptions: Levofloxacin [Levaquin] 500 mg PO DAILY 4 Days #4 tablet Home Medications: Albuterol Sulfate [Ventolin Hfa] 2 puff IH Q6HP PRN 10/14/17 Duloxetine HCl [Cymbalta] 90 mg PO DAILY 10/14/17 Levothyroxine Sodium [Synthroid 0.1 mg Tablet] 0.1 mg PO Q6AM 10/14/17 Metformin HCl [Metformin HCl ER] 1,500 mg PO DAILY 10/14/17 Omeprazole 40 mg PO DAILY 10/14/17 Trazodone HCl [Desyrel 50 mg Tablet] 50 mg PO QHS MDD 100 MG 10/14/17 Calcium Carbonate [Calcium] 500 mg PO DAILY 04/04/18 Lisinopril/Hydrochlorothiazide [Lisinopril-Hctz 20-25 mg Tab] 1 each PO DAILY 04/04/18 Potassium 99 mg PO QHS 04/04/18 Amlodipine Besylate [Norvasc 5 mg Tablet] 5 mg PO DAILY 03/15/19 Budesonide/Formoterol Fumarate [Symbicort HFA 160-4.5 mcg Inhaler 6 gm] 2 puff IH Q12 03/15/19 Gabapentin [Neurontin 300 mg Capsule] 300 mg PO DAILY 03/15/19 Gabapentin [Neurontin 300 mg Capsule] 900 mg PO QHS 03/15/19 Glimepiride 2 mg PO DAILY 03/15/19 Glimepiride 4 mg PO QPM 03/15/19 Lorazepam 0.5 mg PO Q12HP PRN 03/15/19 Magnesium Oxide [Mag-Ox 400 mg Tablet] 400 mg PO DAILY 03/15/19 Rosuvastatin Calcium [Crestor] 40 mg PO QHS 03/15/19 Levofloxacin [Levaquin] 500 mg PO DAILY 4 Days #4 tablet 03/17/19 History of Present Illiness History of Present Illness: JOYCELYN HOLLOWAY is a 69 year old female past medical history of oxygen dependent COPD, diabetes, hypertension, chronic diarrhea, diverticulitis status post partial left colectomy several years ago taken to ED complaining of weaknes s severe left lower quadrant abdominal pain x1 day. Left lower quadrant abdominal pain, 5/5 on intensity scale, sharp, radiating medially over the hypogastrium, worse with movement, better with staying still, associated with nausea, subjective fever. Denies any recent travel, sick contact, denies any shortness of breath, chest pain, vomiting, headache, vision changes, orthopnea, paroxysmal nocturnal dyspnea, lower extremity swelling, or urinary symptoms. Of note patient has chronic diarrhea for which she takes metronidazole and is stating that she has not noted any changes in her chronic diarrhea. In ED CBC CMP WNL however CT abdomen showed left lower quadrant early stage diverticulitis. Hospital Course Hospital Course: (1) Diverticulitis Based on CT abdomen pelvis and physical finding. CT abdomen positive for early acute sigmoid diverticulitis. No evidence of abscess. Afebrile, WBC WNL, CMP WNL. Presented with severe left lower quadrant abdominal pain. Was admitted to floor, opioid and non-opioid analgesics, empiric IV antibiotics, blood culture, supportive measures. Received 3 days of levofloxacin. Was discharged on 4 days of levofloxacin as outpatient. Abdominal pain resolved. Afebrile. Cultures remain negative. (2) Lower abdominal pain Due to #1. Plan as per #1. (3) Chronic diarrhea History of chronic diarrhea of several years duration. Takes metronidazole at home. Admitted to floor, monitored volume status and electrolytes. Volume status and electrolyte WNL at time of discharge. Was advised to restart home meds upon discharge. Follow-up as outpatient with gastroenterology and PCP. (4) Hypertension Appears euvolemic. Normotensive. Started home meds and PRN IV hydralazine metoprolol. Advised to restart home meds upon discharge. Follow-up with PCP as outpatient. (5) Obesity Diet and lifestyle modification recommended. Likely a bariatric intervention candidate. (6) Obstructive sleep apnea Weight loss recommended. Nocturnal CPAP. Has CPAP at home. (7) Type 2 diabetes mellitus Controlled. Takes metformin at home. Started on diabetic diet, prandial, basal, and correctional insulin, hypoglycemic protocol, Accu-Chek. Advised to restart home meds upon discharge and follow-up with PCP. (8) COPD (chronic obstructive pulmonary disease) History of oxygen dependent COPD. On home O2 3 L/min. Did not seem to be acutely exacerbated. Was started on no meds. Advised to restart home meds upon discharge. Physical Exam Vital Signs: Temp Pulse Resp BP Pulse Ox 98.0 F 74 18 150/65 H 91 L 03/17/19 13:15 03/17/19 13:15 03/17/19 13:15 03/17/19 13:15 03/17/19 13:15 Intake & Output 03/17/19 03/18/19 03/19/19 06:59 06:59 06:59 Intake Total 2678 240 Balance 2678 240 Weight 107.2 kg General appearance: PRESENT: no acute distress, obese, well-developed, well-nour ished Respiratory exam: PRESENT: clear to auscultation vicky. ABSENT: rales, rhonchi, wheezes Cardiovascular exam: PRESENT: RRR. ABSENT: diastolic murmur, rubs, systolic murmur Extremities exam: PRESENT: full ROM. ABSENT: calf tenderness, clubbing, pedal edema Neurological exam: PRESENT: alert, awake, oriented to person, oriented to place, oriented to time, oriented to situation, CN II-XII grossly intact. ABSENT: motor sensory deficit Results Laboratory Results: WBC 5.6 10^3/uL (4.0-10.5) 03/16/19 04:13 RBC 3.17 10^6/uL (3.72-5.28) L 03/16/19 04:13 Hgb 9.2 g/dL (12.0-15.5) L 03/16/19 04:13 Hct 27.0 % (36.0-47.0) L 03/16/19 04:13 MCV 85 fl (80-97) 03/16/19 04:13 MCH 29.0 pg (27.0-33.4) 03/16/19 04:13 MCHC 34.1 g/dL (32.0-36.0) 03/16/19 04:13 RDW 16.0 % (11.5-14.0) H 03/16/19 04:13 Plt Count 158 10^3/uL (150-450) 03/16/19 04:13 Lymph % (Auto) 28.5 % (13-45) 03/16/19 04:13 Stone % (Auto) 7.7 % (3-13) 03/16/19 04:13 Eos % (Auto) 3.0 % (0-6) 03/16/19 04:13 Baso % (Auto) 0.7 % (0-2) 03/16/19 04:13 Absolute Neuts (auto) 3.3 10^3/uL (1.7-8.2) 03/16/19 04:13 Absolute Lymphs (auto) 1.6 10^3/uL (0.5-4.7) 03/16/19 04:13 Absolute Monos (auto) 0.4 10^3/uL (0.1-1.4) 03/16/19 04:13 Absolute Eos (auto) 0.2 10^3/uL (0.0-0.6) 03/16/19 04:13 Absolute Basos (auto) 0.0 10^3/uL (0.0-0.2) 03/16/19 04:13 Seg Neutrophils % 60.1 % (42-78) 03/16/19 04:13 Sodium 139.1 mmol/L (137-145) 03/16/19 04:13 Potassium 4.3 mmol/L (3.6-5.0) 03/16/19 04:13 Chloride 104 mmol/L (98-107) 03/16/19 04:13 Carbon Dioxide 25 mmol/L (22-30) 03/16/19 04:13 Anion Gap 10 (5-19) 03/16/19 04:13 BUN 22 mg/dL (7-20) H 03/16/19 04:13 Creatinine 0.75 mg/dL (0.52-1.25) 03/16/19 04:13 Est GFR ( Amer) > 60 (>60) 03/16/19 04:13 Est GFR (MDRD) Non-Af > 60 (>60) 03/16/19 04:13 Glucose 86 mg/dL (75-110) 03/16/19 04:13 POC Glucose 110 mg/dL (70-110) 03/17/19 05:56 Calcium 8.6 mg/dL (8.4-10.2) 03/16/19 04:13 Magnesium 1.8 mg/dL (1.6-2.3) 03/17/19 04:22 Total Bilirubin 0.3 mg/dL (0.2-1.3) 03/16/19 04:13 Direct Bilirubin 0.2 mg/dL (0.0-0.4) 03/16/19 04:13 Neonat Total Bilirubin Not Reportable 03/16/19 04:13 Neonat Direct Bilirubin Not Reportable 03/16/19 04:13 Neonat Indirect Bili Not Reportable 03/16/19 04:13 AST 25 U/L (14-36) 03/16/19 04:13 ALT 23 U/L (<35) 03/16/19 04:13 Alkaline Phosphatase 69 U/L (38-126) 03/16/19 04:13 Total Protein 6.6 g/dL (6.3-8.2) 03/16/19 04:13 Albumin 3.5 g/dL (3.5-5.0) 03/16/19 04:13 Urine Color YELLOW 03/15/19 10:45 Urine Appearance CLEAR 03/15/19 10:45 Urine pH 6.0 (5.0-9.0) 03/15/19 10:45 Ur Specific [place] 1.018 03/15/19 10:45 Urine Protein NEGATIVE mg/dL (NEGATIVE) 03/15/19 10:45 Urine Glucose (UA) 150 mg/dL (NEGATIVE) H 03/15/19 10:45 Urine Ketones NEGATIVE mg/dL (NEGATIVE) 03/15/19 10:45 Urine Blood NEGATIVE (NEGATIVE) 03/15/19 10:45 Urine Nitrite NEGATIVE (NEGATIVE) 03/15/19 10:45 Urine Bilirubin NEGATIVE (NEGATIVE) 03/15/19 10:45 Urine Urobilinogen NEGATIVE mg/dL (<2.0) 03/15/19 10:45 Ur Leukocyte Esterase NEGATIVE (NEGATIVE) 03/15/19 10:45 Urine WBC (Auto) 1 /HPF 03/15/19 10:45 Urine RBC (Auto) 0 /HPF 03/15/19 10:45 Squamous Epi Cells Auto 1 /HPF 03/15/19 10:45 Urine Mucus (Auto) RARE /LPF 03/15/19 10:45 Urine Ascorbic Acid NEGATIVE (NEGATIVE) 03/15/19 10:45 Impressions: Abdomen/Pelvis CT 03/15/19 10:54 IMPRESSION: 1. EARLY ACUTE SIGMOID DIVERTICULITIS. NO EVIDENCE OF ABSCESS. 2. NO OTHER SIGNIFICANT OR ACUTE FINDING IN THE ABDOMEN OR PELVIS ON CT SCAN WITH IV CONTRAST. Stroke Is this a Stroke Patient?: No Acute Heart Failure - Is this a Heart Failure Patient?: No
== END 2019-03-17 13:50 | disposition home or self-care (01) ==
LOC: ER 10:24 → EH 15:41 → 4S 18:36
PROVIDERS: ADMIT Internal Medicine; ATTEND Internal Medicine
DX: K57.32 Diverticulitis of large intestine without perforation or abscess without bleeding (principal); K52.9 Noninfective gastroenteritis and colitis, unspecified; E66.01 Morbid (severe) obesity due to excess calories; G47.33 Obstructive sleep apnea (adult) (pediatric); J44.9 Chronic obstructive pulmonary disease, unspecified; I25.10 Atherosclerotic heart disease of native coronary artery without angina pectoris; K21.9 Gastro-esophageal reflux disease without esophagitis; E78.5 Hyperlipidemia, unspecified; E11.22 Type 2 diabetes mellitus with diabetic chronic kidney disease; I12.9 Hypertensive chronic kidney disease with stage 1 through stage 4 chronic kidney disease, or unspecified chronic kidney disease; N18.2 Chronic kidney disease, stage 2 (mild); Z99.81 Dependence on supplemental oxygen; Z90.49 Acquired absence of other specified parts of digestive tract; Z90.710 Acquired absence of both cervix and uterus; Z98.51 Tubal ligation status; Z79.899 Other long term (current) drug therapy; Z68.42 Body mass index [BMI] 45.0-49.9, adult; Z79.4 Long term (current) use of insulin; Z87.442 Personal history of urinary calculi
CPT/HCPCS: 99285; 96361; 96374; 96375; 36415 ×3; 87040; 82962 ×3; 83735 ×2; 85025; 85027; 80053 ×2; 81001; 74177; G0378 ×4; J3475; A9270 ×23; J1200; J1885; J2270; J1650 ×3; J2550; J2405; J7030 ×2; J7040; J1956 ×2; J3490; J1815

== ENCOUNTER → 2019-05-12 | Outpatient (CLI) | payer MEDICARE, MEDICAID ==
--- NOTE | 2019-05-12 15:32 | WOMENS IMAGING REPORT ---
EXAM DESCRIPTION: BILAT SCREENING MAMMO W/CAD COMPLETED DATE/TIME: 05/12/2019 11:08 am REASON FOR STUDY: Z12.31 ENCOUNTER FOR SCREENING MAMMOGRAM FOR MALIGNANT NEOPLASM OF BREAST Z12.31 ENCNTR SCREEN MAMMOGRAM FOR MALIGNANT NEOPLASM OF [place] COMPARISON: 2011. EXAM PARAMETERS: Standard craniocaudal and mediolateral oblique views of each breast recorded using digital acquisition. Read with the assistance of CAD. .[facility] [place] Control Engineer Version 9.2 LIMITATIONS: None. FINDINGS: No suspicious masses, suspicious calcifications or architectural distortion. No areas of c oncern. IMPRESSION: Negative MAMMOGRAM. BIRADS 1 BREAST DENSITY: b. There are scattered areas of fibroglandular density. BIRAD: ASSESSMENT: 1 NEGATIVE RECOMMENDATION: ROUTINE SCREENING COMMENT: The patient has been notified of the results by letter per MQSA requirements. Additional no tification policies are in place for contacting patient with suspicious or incomplete findings. Quality ID #[id number]: The [employer] recommends an annual screening mammogram for women aged 40 years or over. This facility utilizes a reminder system to ensure that all patients receive reminder letters, and/or direct phone calls for appointments. This includes reminders for routine scr eening mammograms, diagnostic mammograms, or other Breast Imaging Interventions when appropriate. Th is patient will be placed in the appropriate reminder system. TECHNICAL DOCUMENTATION: FINDING NUMBER: (1) ASSESSMENT: (1) JOB ID: [id number] 2010 [employer]- All Rights Reserved Reading location - IP/workstation name: [email or web address]
== END ==
LOC: WI 10:08
PROVIDERS: ATTEND Nurse Practitioner Family
DX: Z12.31 Encounter for screening mammogram for malignant neoplasm of breast (principal)
CPT/HCPCS: 77067